=== PATIENT | male | born 1965 | race Two or more races ===

== ENCOUNTER → 2020-02-16 08:22 | Outpatient (BNVA) | payer MEDICARE, MEDICAID, SELFPAY | PROVIDERS: PCP Internal Medicine; Visit Provider Family Medicine Adult Medicine | DX: M54.16 Radiculopathy, lumbar region (principal); Z87.891 Personal history of nicotine dependence; Z98.1 Arthrodesis status | CPT/HCPCS: 99214 ==

== ENCOUNTER → 2020-04-12 08:09 | Outpatient (BNVA) | payer MEDICARE, MEDICAID, SELFPAY | PROVIDERS: PCP Internal Medicine; Referring Provider Internal Medicine; Visit Provider Family Medicine Adult Medicine | DX: M54.16 Radiculopathy, lumbar region (principal); Z98.1 Arthrodesis status | CPT/HCPCS: 99212 ==

== ENCOUNTER 2020-05-10 13:55 | Outpatient (REF) | payer MEDICARE, MEDICAID, SELFPAY | END 2020-05-10 13:56 | disposition home or self-care (01) | LOC: HO.LAB 13:55 | PROVIDERS: Visit Provider Internal Medicine | DX: Z20.828 Contact with and (suspected) exposure to other viral communicable diseases (principal) | CPT/HCPCS: 36415; C9803; U0003 ==

== ENCOUNTER → 2020-05-18 08:23 | Outpatient (BNVA) | payer MEDICARE, MEDICAID, SELFPAY | PROVIDERS: PCP Internal Medicine; Visit Provider Anesthesiology | DX: M96.1 Postlaminectomy syndrome, not elsewhere classified (principal); M79.18 Myalgia, other site | CPT/HCPCS: 20552; 99212; J3300 ==

== ENCOUNTER → 2020-06-07 10:49 | Outpatient (BNVA) | payer MEDICARE, MEDICAID, SELFPAY | PROVIDERS: PCP Internal Medicine; Visit Provider Family Medicine Adult Medicine | DX: M54.16 Radiculopathy, lumbar region (principal); Z98.1 Arthrodesis status; Z79.899 Other long term (current) drug therapy | CPT/HCPCS: 99212 ==

== ENCOUNTER 2020-07-05 08:15 | Outpatient (REF) | payer MEDICARE, MEDICAID, SELFPAY ==
[2020-07-05 10:11] LABS: Hematocrit 46.5 % (42-52); Hemoglobin 15.4 g/dl (14.0-18.0); Mean Corpuscular HGB Conc 33.1 g/dl (31.0-36.0); Mean Corpuscular Hemoglobin 28.4 pg (27.0-33.0); Mean Corpuscular Volume 85.6 fL (80-98); Mean Platelet Volume 11.2 fL (9.4-12.4); Platelet Count 223 X10*3/uL (160-400); Red Blood Count 5.43 X10*6/uL (4.60-5.80); White Blood Count 6.8 X10*3/uL (4.8-10.8)
[2020-07-05 10:47] LABS: Alanine Aminotransferase 39 U/L (0-40); Albumin Level 4.2 g/dL (3.5-5.0); Alkaline Phosphatase 67 U/L (39-117); Anion Gap 13 (12-20); Aspartate Amino Transferase 23 U/L (5-37); Bilirubin Direct 0.2 mg/dL (0.0-0.5); Bilirubin Total 0.7 mg/dL (0.0-1.0); Blood Urea Nitrogen 13 mg/dL (9-16); Carbon Dioxide 29 mmol/L (22-29); Chloride 102 mmol/L (96-108); Cholesterol 158 mg/dL; Estimated Glomerular Filt Rate > 60; Glucose Random 142 mg/dL (60-115); HDL Cholesterol 33 mg/dL; LDL Cholesterol Calculated 100 mg/dl; Potassium 4.7 mmol/L (3.3-5.1); Sodium 139 mmol/L (135-145); Total Protein 7.2 g/dL (6.5-8.0); Triglycerides 128 mg/dL
[2020-07-05 10:52] LABS: Thyroid Stimulating Hormone 2.45 uIU/mL (0.32-4.0)
[2020-07-05 11:39] LABS: Folate > 20.0 ng/mL (> or = 4.0); Vitamin B12 280 pg/mL (200-900)
[2020-07-09 10:36] LABS: Vitamin D 25-OH, D2 <4 ng/mL; Vitamin D 25-OH, D3 21 ng/mL; Vitamin D 25-OH, Total 21 ng/mL (30-100)
== END 2020-07-05 08:16 | disposition home or self-care (01) ==
LOC: HO.10HDL 08:15
PROVIDERS: Visit Provider Internal Medicine
DX: M79.18 Myalgia, other site (principal)
CPT/HCPCS: 36415; 80048; 80061; 80076; 82306; 82607; 82746; 84443; 85027

== ENCOUNTER 2020-07-12 07:03 | Emergency (ER) | payer MEDICARE, MEDICAID, SELFPAY ==
--- NOTE | ~2020-07-12 | XR_ITS ---
EXAMINATION: XR CHEST CLINICAL INFORMATION: Chest pain. COMPARISON: None TECHNIQUE: 2 views of the chest were obtained. FINDINGS: No significant abnormality is noted involving the heart, lungs, mediastinum, bony thorax or soft tissues. XR/XR chest 2V IMPRESSION: Unremarkable chest exam.
[2020-07-12 07:25] VITALS: BP 140/84; PULSE 70; RESP 16; TEMP 36.5; O2SAT 99; BMI 32.2
--- NOTE | 2020-07-12 07:51 | ECG_ITS ---
Test Reason : HIRA PAIN Blood Pressure : / mmHG Vent. Rate : 059 BPM Atrial Rate : 059 BPM P-R Int : 148 ms QRS Dur : 098 ms QT Int : 416 ms P-R-T Axes : 062 022 020 degrees QTc Int : 411 ms Sinus bradycardia Otherwise normal ECG No previous ECGs available Referred By: Vinny Marcus Electronically Signed By:Erasmo Warren
--- NOTE | 2020-07-12 07:55 | ED_ITS ---
HPI - General Adult General Chief complaint: General Medical Stated complaint: pain in back when breathing Time Seen by Provider: 07/12/20 07:37 Source: patient Mode of arrival: ambulatory Limitations: no limitations History of Present Illness HPI narrative: 55-year-old male who presents emergency department for evaluation pleuritic, posterior chest pain. Patient states that 2 days prior he started to develop chest pain in his upper back. He describes the pain as coming on gradually. The pain is a pressure/pins and needles like pain which is constant and is worse with breathing. The pain is 8/10 with breathing. He denied shortness of breath, dyspnea on exertion, cough, fever, chills. He states that he has arthritis and he always has body pain secondary to his arthritis. He has noted swelling of his lower extremities over the past 2 weeks. He denies any recent travel or recent surgeries.. This is his 1st episode of this type of pain. The patient does have chronic back pain and is in pain management. He takes Percocet 7.5 mg daily and ibuprofen. He states that the ibuprofen has given him some relief of the pain. He last took ibuprofen last night. He was concerned that the pain was persistent, therefore came to the emergency department for evaluation. Related Data Home Medications Medication Instructions Recorded Confirmed atorvastatin 40 mg tablet 40 mg PO DAILY 02/06/20 07/10/20 thiamine HCl (vitamin B1) 100 mg 100 mg PO DAILY 02/16/20 07/10/20 tablet Previous Rx's Medication Instructions Recorded oxycodone-acetaminophen 7.5 mg-325 1 tab PO Q6H PRN 30 Days #120 tab 06/07/20 mg tablet ibuprofen 800 mg tablet 800 mg PO Q12H 90 Days #180 tab 07/07/20 Allergies Allergy/AdvReac Type Severity Reaction Status Date / Time morphine [MORPHINE] Allergy Severe SHORTNESS Verified 07/04/20 12:38 OF BREATH, resp depression adhesive tape [ADHESIVE TAPE] Allergy Intermediate RASH Verified 07/04/20 12:38 metformin [METFORMIN] Allergy Intermediate RASH Verified 07/04/20 12:38 Review of Systems Review of Systems: Yes all other systems are reviewed and are negative PMFSH Past Medical History Medical History Cervical vertebral fusion Myofascial pain syndrome Postlaminectomy syndrome of lumbar region Radiculopathy, lumbar region Surgical History History of bariatric surgery History of lumbar fusion History of lumbar laminectomy History of neck surgery Family History Family History Mother Liver disease Father Diabetes Sister Leukemia Social History Social History Alcohol intake: never Smoking Status: Never smoker Smoked in Last 30 Days: No Use of substances other than those prescribed or required for medical reasons: No Advance Directives: No Advance Directives Information Provided: No Physical Exam Vital Signs: Vital Signs: Last Vital Signs Temp 97.7 F 07/12/20 07:25 Pulse 60 07/12/20 10:29 Resp 16 07/12/20 10:29 BP 118/67 07/12/20 10:29 Pulse Ox 98 07/12/20 10:29 Body Mass Index 32.2 Const: General: cooperative and healthy appearing Orientation/consciousness: oriented to person and oriented to place Limitations: no limitations HENMT: Head: Yes normal to inspection, Yes normocephalic and Yes atraumatic Ears: external ears normal General nose exam: Normal external nose present Face and sinus: Yes normal facial exam Mouth: Normal oral and palatal mucosa present Throat: Yes posterior oropharynx normal Eyes: Periorbital: periorbital findings normal Eyelids: Yes eyelids normal Conjunctivae: conjunctivae normal Sclerae: sclerae normal Corneas: corneas normal Pupils: Equal, round and reactive pupils present Direct Ophthalmoscopy: normal light reflex Neck: Neck: Yes full ROM, Yes no lymphadenopathy, Yes no meningeal signs, Yes trachea midline and Yes supple Chest: Other: Patient has tenderness with palpation of his lateral and posterior chest wall, no crepitus, no lesions or rashes noted Chest palpation & inspection: normal inspection of the chest Resp: Effort & Inspection: normal respiratory effort and able to speak in complete sentences Auscultation: clear to auscultation bilaterally Cardio: Rate: regular rate Rhythm: regular rhythm Heart sounds: S1 normal heart sound present, S2 normal heart sound present and no murmurs GI: Inspection: Yes normal to inspection Palpation (GI): Soft to palpation, nontender, no guarding, not rigid and No hepatosplenomegaly present : General: Yes no CVA tenderness Back/Spine/Pelvis: Back: no CVA tenderness Cervical Spine: normal cervical lordosis Thoracic/Lumbar Spine: thoracic and lumbar spine normal to insp ection Skin: Lesions: no lesions Rashes: no rashes Wounds: no wounds Neuro: General: oriented to person, oriented to place and no meningeal signs Cranial nerves: Yes CN's II-XII intact bilaterally and Yes Equal, round and reactive pupils present Cognition (Neuro): normal cognition Motor exam (neuro): 5/5 motor strength present throughout Extrem: General: Yes normal to inspection and Yes full ROM Psych: Appearance: well kempt Mental Status: mental status grossly normal Speech and movement: Normal speech and movement present Affect: normal affect Attitude: cooperative Thought process: Normal thought process prese nt Thought content: Normal thought content present Course Course Course Narrative: 55-year-old male who presents emergency department for evaluation of 2 days of pleuritic lateral and posterior chest pain with no other symptoms except for lower extremity swelling. Physical examination did reveal tenderness with palpation of the lateral and posterior chest wall, no significant lower extremity swelling or pain to palpation of the extremities. I did order a workup to include CBC, CMP, troponin, D-dimer, EKG, two view chest x-ray. Patient's pain will be treated with Toradol 30 mg IV. 1312: The patient's pain is significantly better after the IV Toradol. The patient's laboratory evaluation revealed a normal D-dimer. The patient's 1st troponin was detectable but not elevated at 4.7, his repeat 3 hour troponin was again detectable but not elevated at 4.8 suggested that he does not have any acute myocardial injury is the cause of his pain. The rest the patient's labor atory evaluation was unremarkable. Chest x-ray was unremarkable as well. The patient's presentation is consistent with acute pleurisy and I did discuss this with him. He was given verbal and printed instructions. He is advised to continue taking his ibuprofen 800 mg twice a day. He was also advised to take Tylenol 1000 mg every 6 hours as needed for pain. The patient will need to follow up with his doctor and return to emergency department if his symptoms get worse or if he develops any new symptoms that are concerning to him. Medical Decision Making Lab Data Result diagrams: 07/12/20 08:05 07/12/20 08:05 Labs: Lab Results 07/12/20 07/12/20 07/12/20 Range/Units 08:05 08:05 08:05 WBC 8.8 (4.8-10.8) X10*3/uL RBC 5.19 (4.60-5.80) X10*6/uL Hgb 14.5 (14.0-18.0) g/dl Hct 44.2 (42-52) % MCV 85.2 (80-98) fL MCH 27.9 (27.0-33.0) pg MCHC 32.8 (31.0-36.0) g/dl RDW 11.9 (11.0-16.0) % Plt Count 198 (160-400) X10*3/uL MPV 11.2 (9.4-12.4) fL Immature Gran % (Auto) 0.3 (0.0-0.4) % Neut % (Auto) 71.0 (45-73) % Lymph % (Auto) 20.1 (20-40) % [place] % (Auto) 6.1 (2-11) % Eos % (Auto) 1.8 (0-4) % Baso % (Auto) 0.7 (0-2) % Lymph # (Auto) 1.8 (1.2-4.9) X10*3/uL [place] # (Auto) 0.5 (0.1-1.2) X10*3/uL Eos # (Auto) 0.2 (0.0-0.4) X10*3/uL Baso # (Auto) 0.1 (0.0-0.2) X10*3/uL Abs Immat Gran (auto) 0.03 (0.00-0.03) X10*3/uL Absolute Neuts (auto) 6.2 (2.0-8.3) X10*3/uL Absolute Nucleated RBC 0.000 (0.0-0.012) X10*3/uL Nucleated RBC % (auto) 0.0 (0.0-0.2) /100WBC D-Dimer < 200 NG/ML Sodium 138 (135-145) mmol/L Potassium 4.0 (3.3-5.1) mmol/L Chloride 102 (96-108) mmol/L Carbon Dioxide 29 (22-29) mmol/L Anion Gap 11 L (12-20) BUN 11 (9-16) mg/dL Creatinine 0.74 (0.5-1.4) mg/dL Estim Creat Clear Calc 128.3 Estimated GFR > 60 Random Glucose 143 H (60-115) mg/dL Calcium 9.3 (8.4-10.2) mg/dL Total Bilirubin 0.4 (0.0-1.0) mg/dL AST 14 (5-37) U/L ALT 24 (0-40) U/L Alkaline Phosphatase 61 (39-117) U/L Troponin I High Sens (<3.5-35.0) ng/L Total Protein 6.9 (6.5-8.0) g/dL Albumin 4.0 (3.5-5.0) g/dL 07/12/20 07/12/20 Range/Units 08:05 11:17 WBC (4.8-10.8) X10*3/uL RBC (4.60-5.80) X10*6/uL Hgb (14.0-18.0) g/dl Hct (42-52) % MCV (80-98) fL MCH (27.0-33.0) pg MCHC (31.0-36.0) g/dl RDW (11.0-16.0) % Plt Count (160-400) X10*3/uL MPV (9.4-12.4) fL Immature Gran % (Auto) (0.0-0.4) % Neut % (Auto) (45-73) % Lymph % (Auto) (20-40) % [place] % (Auto) (2-11) % Eos % (Auto) (0-4) % Baso % (Auto) (0-2) % Lymph # (Auto) (1.2-4.9) X10*3/uL [place] # (Auto) (0.1-1.2) X10*3/uL Eos # (Auto) (0.0-0.4) X10*3/uL Baso # (Auto) (0.0-0.2) X10*3/uL Abs Immat Gran (auto) (0.00-0.03) X10*3/uL Absolute Neuts (auto) (2.0-8.3) X10*3/uL Absolute Nucleated RBC (0.0-0.012) X10*3/uL Nucleated RBC % (auto) (0.0-0.2) /100WBC D-Dimer NG/ML Sodium (135-145) mmol/L Potassium (3.3-5.1) mmol/L Chloride (96-108) mmol/L Carbon Dioxide (22-29) mmol/L Anion Gap (12-20) BUN (9-16) mg/dL Creatinine (0.5-1.4) mg/dL Estim Creat Clear Calc Estimated GFR Random Glucose (60-115) mg/dL Calcium (8.4-10.2) mg/dL Total Bilirubin (0.0-1.0) mg/dL AST (5-37) U/L ALT (0-40) U/L Alkaline Phosphatase (39-117) U/L Troponin I High Sens 4.7 4.8 (<3.5-35.0) ng/L Total Protein (6.5-8.0) g/dL Albumin (3.5-5.0) g/dL ECG Data Attestation: I personally reviewed and interpreted this ECG as follows: Interpretation: 0820: Sinus bradycardia with rate of 59, normal SD, QRS and QTC intervals, are R prime in lead 3, no ST segment elevation, no ST segment depression, besides the bradycardia, this is an otherwise normal EKG. Discharge Plan Discharge Prescriptions: No Action ibuprofen 800 mg tablet 800 mg PO Q12H 90 Days Qty: 180 RF: 1 thiamine HCl (vitamin B1) [Vitamin B-1] 100 mg tablet 100 mg PO DAILY RF: 0 atorvastatin 40 mg tablet 40 mg PO DAILY RF: 0 oxycodone-acetaminophen 7.5-325 mg tablet 1 tab PO Q6H PRN (Reason: pain) 30 Days Qty: 120 RF: 0
[2020-07-12] MEDS: Ketorolac Tromethamine 30 MG/ML VIAL IVPUSH (08:14)
[2020-07-12 08:17] VITALS: BP 144/89; PULSE 58; RESP 16; O2SAT 100
[2020-07-12 08:23] LABS: MANUAL DIFF FLAG NO
[2020-07-12 08:25] LABS: Basophils Absolute Auto 0.1 X10*3/uL (0.0-0.2); Basophils Percent Auto 0.7 % (0-2); Eosinophils Absolute Auto 0.2 X10*3/uL (0.0-0.4); Eosinophils Percent Auto 1.8 % (0-4); Hematocrit 44.2 % (42-52); Hemoglobin 14.5 g/dl (14.0-18.0); Imm Gran Abs Auto 0.03 X10*3/uL (0.00-0.03); Imm Gran Pct Auto 0.3 % (0.0-0.4); Lymphocytes Absolute Auto 1.8 X10*3/uL (1.2-4.9); Lymphocytes Percent Auto 20.1 % (20-40); Mean Corpuscular HGB Conc 32.8 g/dl (31.0-36.0); Mean Corpuscular Hemoglobin 27.9 pg (27.0-33.0); Mean Corpuscular Volume 85.2 fL (80-98); Mean Platelet Volume 11.2 fL (9.4-12.4); Monocytes Absolute Auto 0.5 X10*3/uL (0.1-1.2); Monocytes Percent Auto 6.1 % (2-11); Neutrophils Absolute Auto 6.2 X10*3/uL (2.0-8.3); Platelet Count 198 X10*3/uL (160-400); Red Blood Count 5.19 X10*6/uL (4.60-5.80); Red Cell Distribution Width 11.9 % (11.0-16.0); White Blood Count 8.8 X10*3/uL (4.8-10.8)
[2020-07-12 08:42] LABS: D Dimer < 200 NG/ML
[2020-07-12 08:56] LABS: Alanine Aminotransferase 24 U/L (0-40); Alkaline Phosphatase 61 U/L (39-117); Anion Gap 11 (12-20); Aspartate Amino Transferase 14 U/L (5-37); Bilirubin Total 0.4 mg/dL (0.0-1.0); Blood Urea Nitrogen 11 mg/dL (9-16); Calcium 9.3 mg/dL (8.4-10.2); Carbon Dioxide 29 mmol/L (22-29); Chloride 102 mmol/L (96-108); Creatinine Clr Calc Pharmacy 128.3; Estimated Glomerular Filt Rate > 60; Glucose Random 143 mg/dL (60-115); Sodium 138 mmol/L (135-145); Total Protein 6.9 g/dL (6.5-8.0)
[2020-07-12 09:00] LABS: Troponin-I High Sensitivity 4.7 ng/L (<3.5-35.0)
[2020-07-12 10:29] VITALS: BP 118/67; PULSE 60; RESP 16; O2SAT 98
[2020-07-12 11:58] LABS: Troponin-I High Sensitivity 4.8 ng/L (<3.5-35.0)
== END 2020-07-12 13:35 | disposition home or self-care (01) ==
PROVIDERS: Emergency Provider Emergency Medicine Emergency Medical Services; PCP Internal Medicine
DX: R07.89 Other chest pain (principal); M54.5 Low back pain; M79.10 Myalgia, unspecified site; Z79.899 Other long term (current) drug therapy
CPT/HCPCS: 36415; 71046; 80053; 84484; 85025; 85379; 93005; 96365; 99284; J1885

== ENCOUNTER → 2020-07-13 09:27 | Outpatient (BNVA) | payer MEDICARE, MEDICAID, SELFPAY | PROVIDERS: PCP Internal Medicine; Visit Provider Nurse Practitioner Family | DX: M79.18 Myalgia, other site (principal); M96.1 Postlaminectomy syndrome, not elsewhere classified; Z79.899 Other long term (current) drug therapy | CPT/HCPCS: 99212 ==

== ENCOUNTER 2020-08-02 09:32 | Outpatient (REF) | payer MEDICARE, MEDICAID, SELFPAY | END 2020-08-02 09:33 | disposition home or self-care (01) | LOC: HO.LAB 09:32 | PROVIDERS: Visit Provider Internal Medicine | DX: B35.1 Tinea unguium (principal) | CPT/HCPCS: 87101; 87107 ==

== ENCOUNTER → 2020-08-17 08:00 | Outpatient (BNVA) | payer MEDICARE, MEDICAID, SELFPAY | PROVIDERS: PCP Internal Medicine; Visit Provider Nurse Practitioner Family | DX: M79.18 Myalgia, other site (principal); M96.1 Postlaminectomy syndrome, not elsewhere classified | CPT/HCPCS: 99212 ==

== ENCOUNTER → 2020-09-21 08:01 | Outpatient (BNVA) | payer MEDICARE, MEDICAID, SELFPAY | PROVIDERS: PCP Internal Medicine; Visit Provider Nurse Practitioner Family | DX: M79.18 Myalgia, other site (principal); M96.1 Postlaminectomy syndrome, not elsewhere classified | CPT/HCPCS: 99212 ==

== ENCOUNTER → 2020-10-19 08:00 | Outpatient (BNVA) | payer MEDICARE, MEDICAID, SELFPAY | PROVIDERS: PCP Internal Medicine; Visit Provider Nurse Practitioner Family | DX: M79.18 Myalgia, other site (principal); M96.1 Postlaminectomy syndrome, not elsewhere classified | CPT/HCPCS: 99212 ==

== ENCOUNTER → 2020-11-17 08:00 | Outpatient (BNVA) | payer MEDICARE, MEDICAID, SELFPAY | PROVIDERS: PCP Internal Medicine; Visit Provider Family Medicine Adult Medicine | DX: M54.16 Radiculopathy, lumbar region (principal); Z98.1 Arthrodesis status | CPT/HCPCS: 99212 ==

== ENCOUNTER → 2020-12-15 08:09 | Outpatient (BNVA) | payer MEDICARE, MEDICAID, SELFPAY | PROVIDERS: PCP Internal Medicine; Visit Provider Family Medicine Adult Medicine | DX: M54.16 Radiculopathy, lumbar region (principal); Z98.1 Arthrodesis status; M47.24 Other spondylosis with radiculopathy, thoracic region | CPT/HCPCS: 99212 ==

== ENCOUNTER 2020-12-26 18:40 | Outpatient (REF) | payer MEDICARE, MEDICAID, SELFPAY | END 2020-12-26 18:41 | disposition home or self-care (01) | LOC: HO.MRI 18:40 | PROVIDERS: PCP Internal Medicine; Visit Provider Anesthesiology | DX: Z13.89 Encounter for screening for other disorder (principal) ==

== ENCOUNTER 2021-01-04 14:51 | Emergency (ER) | payer MEDICARE, MEDICAID, SELFPAY ==
[2021-01-04 14:55] VITALS: BP 144/88; PULSE 93; RESP 16; TEMP 36.1; O2SAT 98; BMI 32.6
[2021-01-04 15:17] LABS: Glucose Urine UA >=1000 MG/DL (NEG); Leukocyte Esterase Urine 1+ (NEG); Nitrite Urine POS (NEG); Specific Gravity - Urine 1.015 (1.005-1.025); UACC Culture Trigger YES; Urine Blood 3+ (NEG); Urine Ketones 5 MG/DL (NEG); Urine Protein 1+ MG/DL (NEG-TRACE)
[2021-01-04 15:18] LABS: Appearance Urine HAZY; Color Urine YELLOW
[2021-01-04 15:25] LABS: Bacteria Urine 3+ /LPF; RBC Urine 30-49 /HPF (0); Squamous Epithelial Cell Urine 1+ /LPF; UACC CULT YES
--- NOTE | 2021-01-04 16:05 | ED_ITS ---
HPI - Male Genitourinary General Chief complaint: Urogenital-Male Stated complaint: bladder pain Time Seen by Provider: 01/04/21 15:52 Source: patient Mode of arrival: ambulatory History of Present Illness HPI Narrative: 55-year-old male with a past medical history anxiety, eczema, radiculopathy, s/p bariatric surgery and bladder surgery in 2014, presenting to the ED complaining of urinary frequency, dysuria, hematuria, urine odor, and l ower abdominal discomfort x 5 days. Also reports chills. Denies fever, nausea/vomiting, flank pain, testicular pain/swelling MD Complaint: dysuria Related Data Previous Rx's Medication Instructions Recorded ibuprofen 800 mg tablet 800 mg PO Q12H 90 Days #180 tab 07/07/20 triamcinolone acetonide 0.025 % 1 appl TOPICAL BID #15 g 09/08/20 topical cream cholecalciferol (vitamin D3) 1,250 1,250 mcg PO QWEEK #14 cap 11/15/20 mcg (50,000 unit) capsule thiamine HCl (vitamin B1) 100 mg 100 mg PO DAILY #90 tab 11/15/20 tablet (Vitamin B-1) oxycodone-acetaminophen 7.5 mg-325 1 tab PO Q6H PRN 30 Days #120 tab 12/15/20 mg tablet lorazepam 1 mg tablet 1 mg PO DAILY PRN 1 Days #2 tab 12/27/20 cefpodoxime 200 mg tablet 200 mg PO BID 7 Days #14 tab 01/04/21 phenazopyridine 200 mg tablet 200 mg PO TID PRN #6 tab 01/04/21 (Pyridium) Allergies Allergy/AdvReac Type Severity Reaction Status Date / Time morphine [MORPHINE] Allergy Severe SHORTNESS Verified 12/15/20 08:53 OF BREATH, resp depression adhesive tape [ADHESIVE TAPE] Allergy Intermediate RASH Verified 12/15/20 08:53 metformin [METFORMIN] Allergy Intermediate RASH Verified 12/15/20 08:53 Review of Systems Review of Systems: Constitutional: No Fever, No Chills, No Fatigue, No Malaise ENT/Mouth: No Ear Pain, No Nasal Congestion, No sore throat Eyes: No Eye Pain, No Swelling Cardiovascular: No Chest Pain, No SOB Respiratory: No Cough, No Sputum Gastrointestinal: No Nausea, No Vomiting, No Diarrhea, No Abdominal pain, No Hematochezia, No Melena Genitourinary: No irregular bleeding, + Dysuria, + Urinary Frequency, No Hematuria, No Urinary Incontinence, + Urgency, No Flank Pain, + Urinary Flow Changes, No Hesitancy Musculoskeletal: No joint pain, No Myalgias Skin: No Skin Lesions, No rash Neuro: No Weakness, No Numbness, No Paresthesias Yes all other systems are reviewed and are negative [facility] Past Medical History Attestation statement: The following information was validated with the patient. Medical History (Updated 01/04/21 @ 18:05 by MARÍA ELENA Amaya) Anxiety Cervical vertebral fusion Dyshidrotic eczema Myofascial pain syndrome Onychomycosis Postlaminectomy syndrome of lumbar region Radiculopathy, lumbar region Thoracic radiculopathy due to degenerative joint disease of spine Surgical History History of bariatric surgery History of lumbar fusion History of lumbar laminectomy History of neck surgery Family History Family History (Updated 11/15/20 @ 08:42 by Silviano Abrams) Mother Liver disease Father Diabetes Sister Leukemia Social History Social History (Updated 11/15/20 @ 08:42 by Silviano Abrams) Housing: Apartment Alcohol intake: never Patient Tobacco Use Status: Never used Tobacco e-Cigarette/Vaping Use: Never Used Second Hand Smoke Exposure: No Use of substances other than those prescribed or required for medical reasons: No Advance Directives: No Advance Directives Information Provided: Yes service: No Current occupational status: disabled Physical Exam Vital Signs: Vital Signs: Last Vital Signs Temp 98.7 F 01/04/21 16:09 Pulse 95 01/04/21 16:09 Resp 16 01/04/21 16:09 BP 139/83 01/04/21 16:09 Pulse Ox 100 01/04/21 16:09 Body Mass Index 32.6 Const: General: cooperative and healthy appearing Orientation/consciousness: patient oriented x3 Limitations: no limitations HENMT: Head: Yes normal to inspection Ears: hearing grossly normal bilaterally General nose exam: Normal external nose present Face and sinus: Yes normal facial exam Eyes: General: appearance normal, both eyes and all related structures EOM: EOMs intact bilaterally Neck: Neck: Yes normal visual inspection Resp: Effort & Inspection: normal respiratory effort and no respiratory distress Cardio: Rate: regular rate Heart sounds: S1 normal heart sound present and S2 normal heart sound present GI: Inspection: Yes normal to inspection Palpation (GI): Soft to palpation, nontender, no guarding and not rigid : General: Yes no CVA tenderness Back/Spine/Pelvis: Back: no CVA tenderness Skin: Rashes: no rashes Wounds: no wounds Neuro: General: patient oriented x3 Gait exam (Neuro): Normal gait present Extrem: General: Yes normal to inspection Course Course Course Narrative: -163-- UA infected > Will give dose of IV Ceftriaxone in the ED based on prior urine cultures -1634--noted leukocytosis of 15.1. Low concern for severe sepsis at this time, labs otherwise unremarkable -1800--results discussed with patient including worrisome signs and symptoms and strict return precautions, he verbalized understanding feel safe for discharge home to follow-up with his PCP/urology MDM - Male Genitourinary MDM Narrative Medical decision making narrative: 55-year-old male with a past medical history anxiety, eczema, radiculopathy, s/p bariatric surgery and bladder surgery in 2014, presenting to the ED complaining of urinary frequency, dysuria, urine odor, and lower abdominal discomfort x 5 days. On exam VSS, NAD/nontoxic, abdomen soft/nontender, no CVAT. Concern for UTI. Lower concern for pyelo/renal stone or sepsis plan: Labs, UA Medical Records Attestation: I reviewed the patient's medical records. Lab Data Attestation: I reviewed the patient's lab results. Result diagrams: 01/04/21 16:15 01/04/21 16:15 Labs: Lab Results 01/04/21 01/04/21 01/04/21 Range/Units 15:02 16:15 16:15 WBC 15.1 H (4.8-10.8) X10*3/uL RBC 5.00 (4.60-5.80) X10*6/uL Hgb 14.1 (14.0-18.0) g/dl Hct 42.3 (42-52) % MCV 84.6 (80-98) fL MCH 28.2 (27.0-33.0) pg MCHC 33.3 (31.0-36.0) g/dl RDW 11.9 (11.0-16.0) % Plt Count 198 (160-400) X10*3/uL MPV 11.1 (9.4-12.4) fL Immature Gran % (Auto) 0.3 (0.0-0.4) % Neut % (Auto) 87.2 H (45-73) % Lymph % (Auto) 7.2 L (20-40) % [place] % (Auto) 4.5 (2-11) % Eos % (Auto) 0.5 (0-4) % Baso % (Auto) 0.3 (0-2) % Lymph # (Auto) 1.1 L (1.2-4.9) X10*3/uL [place] # (Auto) 0.7 (0.1-1.2) X10*3/uL Eos # (Auto) 0.1 (0.0-0.4) X10*3/uL Baso # (Auto) 0.0 (0.0-0.2) X10*3/uL Abs Immat Gran (auto) 0.05 H (0.00-0.03) X10*3/uL Absolute Neuts (auto) 13.1 H (2.0-8.3) X10*3/uL Absolute Nucleated RBC 0.000 (0.0-0.012) X10*3/uL Nucleated RBC % (auto) 0.0 (0.0-0.2) /100WBC Sodium 134 L (135-145) mmol/L Potassium 3.9 (3.3-5.1) mmol/L Chloride 101 (96-108) mmol/L Carbon Dioxide 26 (22-29) mmol/L Anion Gap 11 L (12-20) BUN 10 (9-16) mg/dL Creatinine 0.83 (0.5-1.4) mg/dL Estim Creat Clear Calc 115.1 Estimated GFR > 60 Random Glucose 282 H D (60-115) mg/dL Calcium 9.1 (8.4-10.2) mg/dL Total Bilirubin 0.7 (0.0-1.0) mg/dL Direct Bilirubin 0.3 (0.0-0.5) mg/dL AST 11 (5-37) U/L ALT 15 (0-40) U/L Alkaline Phosphatase 68 (39-117) U/L Total Protein 7.0 (6.5-8.0) g/dL Albumin 4.0 (3.5-5.0) g/dL Urine Color YELLOW Urine Appearance HAZY Urine pH 6.0 (5.0-8.0) Ur Specific [place] 1.015 (1.005-1.025) Urine Protein 1+ H (NEG-TRACE) MG/DL Urine Glucose (UA) >=1000 H (NEG) MG/DL Urine Ketones 5 (NEG) MG/DL Urine Blood 3+ H (NEG) Urine Nitrite POS H (NEG) Ur Leukocyte Esterase 1+ H (NEG) Urine RBC 30-49 H (0) /HPF Urine WBC 15-29 H (0-4) /HPF Ur Squamous Epith Cells 1+ /LPF Urine Bacteria 3+ /LPF Discharge Plan Discharge Clinical Impression: Acute UTI Patient Disposition: Home, Self-Care Instructions: Urinary Tract Infection in Men (ED) Additional Instructions: You have a urinary tract infection, cefpodoxime is an antibiotic, please take as prescribed Pyridium will help with urinary discomfort Make sure you are staying hydrated at home If your symptoms persist or worsen, you develop fever, abdominal pain, your unable to eat or drink, back pain, or nausea/vomiting please return to the ED Prescriptions: New cefpodoxime 200 mg tablet 200 mg PO BID 7 Days Qty: 14 RF: 0 phenazopyridine [Pyridium] 200 mg tablet 200 mg PO TID PRN (Reason: pain) Qty: 6 RF: 0 No Action ibuprofen 800 mg tablet 800 mg PO Q12H 90 Days Qty: 180 RF: 1 triamcinolone acetonide 0.025 % cream 1 appl topical BID Qty: 15 RF: 0 cholecalciferol (vitamin D3) 1,250 mcg (50,000 unit) capsule 1,250 mcg PO QWEEK Qty: 14 RF: 1 thiamine HCl (vitamin B1) [Vitamin B-1] 100 mg tablet 100 mg PO DAILY Qty: 90 RF: 1 oxycodone-acetaminophen 7.5-325 mg tablet 1 tab PO Q6H PRN (Reason: pain) 30 Days Qty: 120 RF: 0 lorazepam 1 mg tablet 1 mg PO DAILY PRN (Reason: anxiety) 1 Days Qty: 2 RF: 0 Referrals: Dominic Evans MD [Primary Care Provider] - 2 days Jr Caldwell MD [Physician] - 1 week
[2021-01-04 16:09] VITALS: BP 139/83; PULSE 95; RESP 16; TEMP 37.1; O2SAT 100
[2021-01-04 16:19] LABS: MANUAL DIFF FLAG NO
[2021-01-04] MEDS: cefTRIAXone sodium 1 GM in 0.9 % Sodium Chloride 50 ML IV (16:19)
[2021-01-04 16:26] LABS: Basophils Percent Auto 0.3 % (0-2); Eosinophils Absolute Auto 0.1 X10*3/uL (0.0-0.4); Eosinophils Percent Auto 0.5 % (0-4); Hematocrit 42.3 % (42-52); Hemoglobin 14.1 g/dl (14.0-18.0); Imm Gran Abs Auto 0.05 X10*3/uL (0.00-0.03); Imm Gran Pct Auto 0.3 % (0.0-0.4); Lymphocytes Absolute Auto 1.1 X10*3/uL (1.2-4.9); Lymphocytes Percent Auto 7.2 % (20-40); Mean Corpuscular HGB Conc 33.3 g/dl (31.0-36.0); Mean Corpuscular Hemoglobin 28.2 pg (27.0-33.0); Mean Corpuscular Volume 84.6 fL (80-98); Mean Platelet Volume 11.1 fL (9.4-12.4); Monocytes Absolute Auto 0.7 X10*3/uL (0.1-1.2); Monocytes Percent Auto 4.5 % (2-11); Neutrophils Absolute Auto 13.1 X10*3/uL (2.0-8.3); Neutrophils Percent Auto 87.2 % (45-73); Platelet Count 198 X10*3/uL (160-400); Red Cell Distribution Width 11.9 % (11.0-16.0); White Blood Count 15.1 X10*3/uL (4.8-10.8)
[2021-01-04 16:46] LABS: Alanine Aminotransferase 15 U/L (0-40); Alkaline Phosphatase 68 U/L (39-117); Anion Gap 11 (12-20); Aspartate Amino Transferase 11 U/L (5-37); Bilirubin Direct 0.3 mg/dL (0.0-0.5); Bilirubin Total 0.7 mg/dL (0.0-1.0); Blood Urea Nitrogen 10 mg/dL (9-16); Calcium 9.1 mg/dL (8.4-10.2); Carbon Dioxide 26 mmol/L (22-29); Chloride 101 mmol/L (96-108); Creatinine Clr Calc Pharmacy 115.1; Estimated Glomerular Filt Rate > 60; Glucose Random 282 mg/dL (60-115); Potassium 3.9 mmol/L (3.3-5.1); Sodium 134 mmol/L (135-145)
== END 2021-01-04 18:18 | disposition home or self-care (01) ==
PROVIDERS: Physician Assistant; Emergency Provider Emergency Medicine Emergency Medical Services; PCP Internal Medicine
DX: N39.0 Urinary tract infection, site not specified (principal)
CPT/HCPCS: 36415; 80048; 80076; 81001; 85025; 87086; 87088; 87186; 96365; 99284; J0696

== ENCOUNTER → 2021-01-12 08:04 | Outpatient (BNVA) | payer MEDICARE, MEDICAID, SELFPAY | PROVIDERS: PCP Internal Medicine; Visit Provider Family Medicine Adult Medicine | DX: Z51.81 Encounter for therapeutic drug level monitoring (principal); Z98.1 Arthrodesis status; M54.16 Radiculopathy, lumbar region | CPT/HCPCS: 99212 ==

== ENCOUNTER 2021-01-16 07:31 | Outpatient (REF) | payer MEDICARE, MEDICAID, SELFPAY ==
--- NOTE | ~2021-01-16 | MR_ITS ---
EXAMINATION: MR THORACIC SPINE WITHOUT CONTRAST CLINICAL INFORMATION: Spondylosis with radiculopathy. COMPARISON: Chest radiograph from 02/19/2017. TECHNIQUE: MRI of the thoracic spine was obtained using routine sequences without contrast. FINDINGS: Normal anatomic alignment. Lipid rich hemangioma within the T7 vertebral body. Mild to moderate degenerative disc disease from T1 to T12 with partial loss of disc height and desiccation. Associated Modic type II discogenic endplate change at T11-T12. No suspicious marrow edema. The vertebral body heights are largely maintained. No demonstrated spinal cord signal abnormalities. No significant abnormalities of the paraspinal musculature. There is a 0.9 cm T2 hyperintense nodule in the posterior right thyroid lobe (no follow-up imaging recommended). Limited evaluation of the intrathoracic structures without significant abnormalities. The descending thoracic aorta is of normal contour and caliber. AXIAL SPINAL LEVELS: Moderate disc-osteophyte complex measuring at C6-C7. Moderate posterior disc herniations at T1-T2, T5-T6, T6-T7, T7-T8, T8-T9, and T11-T12. Mild posterior disc herniations at all additional thoracic levels. There is mild flattening of the ventral cord at the level of T6-T7 without overt spinal canal stenosis. There is moderate multilevel facet joint arthropathy, most notably in the lower thoracic spine. There are moderate to severe neural foraminal stenoses at T1-T2 and from T7-T12 (worst at T9-T10 and T10-T11). 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 Most notably, there are moderate to severe neural foraminal stenoses at T1-T2 and from T7-T12 (worst at T9-T10 and T10-T11. Multilevel posterior disc herniations throughout the thoracic spine. Mild flattening the ventral cord at the level of T6-T7 without overt spinal canal stenosis.
== END 2021-01-16 07:32 | disposition home or self-care (01) ==
LOC: HO.MRI 07:31
PROVIDERS: PCP Internal Medicine; Visit Provider Anesthesiology
DX: M47.24 Other spondylosis with radiculopathy, thoracic region (principal)
CPT/HCPCS: 72146

== ENCOUNTER → 2021-01-23 11:39 | Outpatient (BNVA) | payer MEDICARE, MEDICAID, SELFPAY | PROVIDERS: PCP Internal Medicine; Visit Provider Anesthesiology ==

== ENCOUNTER → 2021-02-07 08:03 | Outpatient (BNVA) | payer MEDICARE, MEDICAID, SELFPAY | PROVIDERS: PCP Internal Medicine; Visit Provider Family Medicine Adult Medicine | DX: Z51.81 Encounter for therapeutic drug level monitoring (principal); F41.9 Anxiety disorder, unspecified; F40.240 Claustrophobia; Z98.1 Arthrodesis status; M54.16 Radiculopathy, lumbar region | CPT/HCPCS: 99212 ==

== ENCOUNTER → 2021-02-16 09:25 | Outpatient (BNVA) | payer MEDICARE, MEDICAID, SELFPAY | PROVIDERS: PCP Internal Medicine; Visit Provider Anesthesiology | DX: M47.24 Other spondylosis with radiculopathy, thoracic region (principal) | CPT/HCPCS: 99212 ==

== ENCOUNTER 2021-03-05 13:54 | Emergency (ER) | payer MEDICARE, MEDICAID, SELFPAY ==
[2021-03-05 13:57] VITALS: BP 137/83; PULSE 82; RESP 16; TEMP 36.8; O2SAT 98; BMI 33.1
--- NOTE | 2021-03-05 16:43 | ED.EAR ---
HPI - Ear Problem General Chief complaint: Ear Problems Stated complaint: loss of hearing in r ear and neck pain Time Seen by Provider: 03/05/21 16:25 Source: patient Mode of arrival: ambulatory History of Present Illness HPI Narrative: 55-year-old male with a past medical history of anxiety, cervical vertebral fusion, lumbar fusion, radiculopathy, presenting to the ED complaining decreased hearing to left ear x2 days with associated tinnitus. Reports tried cleaning here then developed symptoms. Also reports mild pain radiating down left neck. Denies trauma/fall, drainage from ear, fever/chills, headache, lightheadedness/dizziness, vision changes, sore throat MD Complaint: ear pain and decreased hearing Related Data Previous Rx's Medication Instructions Recorded triamcinolone acetonide 0.025 % 1 appl TOPICAL BID #15 g 09/08/20 topical cream cholecalciferol (vitamin D3) 1,250 1,250 mcg PO QWEEK #14 cap 11/15/20 mcg (50,000 unit) capsule thiamine HCl (vitamin B1) 100 mg 100 mg PO DAILY #90 tab 11/15/20 tablet (Vitamin B-1) cefpodoxime 200 mg tablet 200 mg PO BID 7 Days #14 tab 01/04/21 phenazopyridine 200 mg tablet 200 mg PO TID PRN #6 tab 01/04/21 (Pyridium) oxycodone-acetaminophen 7.5 mg-325 1 tab PO Q6H PRN 30 Days #120 tab 02/07/21 mg tablet ibuprofen 800 mg tablet 800 mg PO Q12H 90 Days #180 tab 02/24/21 Allergies Allergy/AdvReac Type Severity Reaction Status Date / Time morphine [MORPHINE] Allergy Severe SHORTNESS Verified 02/16/21 09:59 OF BREATH, resp depression adhesive tape [ADHESIVE TAPE] Allergy Intermediate RASH Verified 02/16/21 09:59 metformin [METFORMIN] Allergy Intermediate RASH Verified 02/16/21 09:59 Review of Systems Review of Systems: Constitutional: No Fever, No Chills, No Fatigue, No Malaise ENT/Mouth: + Hearing loss, No Ear Pain, No Nasal Congestion, No Sinus Pain, No Hoarseness, No sore throat, No Rhinorrhea, No Swallowing Difficulty Eyes: No Eye Pain, No Swelling, No Vision Changes Cardiovascular: No Chest Pain, No SOB Respiratory: No Cough, No Dyspnea Gastrointestinal: No Nausea, No Vomiting, No Diarrhea, No Abdominal pain Genitourinary: No Dysuria, No Urinary Frequency, No Hematuria Musculoskeletal: No joint pain, No Myalgias, No Joint Swelling Skin: No Skin Lesions, No rash Neuro: No Weakness, No Numbness, No Loss of Consciousness, No Dizziness, No Headache Yes all other systems are reviewed and are negative COUNTS INCLUDE 234 BEDS AT THE [facility] Past Medical History Attestation statement: The following information was validated with the patient. Medical History (Updated 03/05/21 @ 18:43 by MARÍA ELENA Amaya) Anxiety Cervical vertebral fusion Dyshidrotic eczema Myofascial pain syndrome Onychomycosis Postlaminectomy syndrome of lumbar region Radiculopathy, lumbar region Thoracic radiculopathy due to degenerative joint disease of spine Surgical History History of bariatric surgery History of lumbar fusion History of lumbar laminectomy History of neck surgery Family History Family History (Updated 11/15/20 @ 08:42 by ALYSSA Rocha) Mother Liver disease Father Diabetes Sister Leukemia Social History Social History (Updated 11/15/20 @ 08:42 by ALYSSA Rocha) Housing: Apartment Alcohol intake: never Patient Tobacco Use Status: Never used Tobacco e-Cigarette/Vaping Use: Never Used Second Hand Smoke Exposure: No Advance Directives: No Advance Directives Information Provided: No service: No Current occupational status: disabled Physical Exam Vital Signs: Vital Signs: Last Vital Signs Temp 98.2 F 03/05/21 13:57 Pulse 82 03/05/21 13:57 Resp 16 03/05/21 13:57 BP 137/83 03/05/21 13:57 Pulse Ox 98 03/05/21 13:57 Body Mass Index 33.1 Const: General: cooperative and healthy appearing Orientation/consciousness: patient oriented x3 Limitations: no limitations HENMT: Head: Yes normal to inspection and Yes atraumatic Ears: mastoids normal, no periauricular adenopathy, no external ear abnormalities and unable to visualize TM bilaterally (Secondary to cerumen impaction) General nose exam: Normal external nose present Face and sinus: Yes normal facial exam Mouth: Normal oral and palatal mucosa present and lip normal Throat: Yes posterior oropharynx normal, Yes tonsils normal, Yes uvula midline, No peritonsillar mass and No uvular edema Eyes: General: appearance normal, both eyes and all related structures EOM: EOMs intact bilaterally Neck: Neck: Yes normal visual inspection, Yes no lymphadenopathy, Yes no meningeal signs, Yes trachea midline and Yes supple Resp: Effort & Inspection: normal respiratory effort and no respiratory distress Cardio: Rate: regular rate GI: Inspection: Yes normal to inspection Skin: Rashes: no rashes Wounds: no wounds Neuro: General: patient oriented x3, gait normal, tone normal, moves all extremities, no meningeal signs, no focal motor deficits and CN's II-XI intact bilaterally Cranial nerves: Yes CN's II-XII intact bilaterally Gait exam (Neuro): Normal gait present Extrem: General: Yes normal to inspection Course Course Course Narrative: -tried irrigation with peroxide/saline without success -soaked ear with Colace >30mins, then used pressure irrigation with saline/peroxide with mild success, partially cleared cerumen. Patient reports mild symptomatic improvement. Still unable to visualize TM. Discussed with patient he has follow-up with ENT, he verbalized understanding MDM - Ear MDM Narrative Medical decision making narrative: 55-year-old male with a past medical history of anxiety, cervical vertebral fusion, lumbar fusion, radiculopathy, presenting to the ED complaining decreased hearing to left ear x2 days with associated tinnitus. On exam vital signs stable, NAD/nontoxic, bilateral cerumen infraction, no focal neuro deficits. Likely cerumen causing sx. Low concern for infection causing symptoms. Low concern for central/vascular causes of tinnitus. Patient not on ototoxic drugs Plan: Cerumen disimpaction with irrigation/Colace Medical Records Attestation: I reviewed the patient's medical records. Lab Data Attestation: I reviewed the patient's lab results. Discharge Plan Discharge Clinical Impression: Cerumen impaction Qualifiers: Laterality: left Qualified Code(s): H61.22 - Impacted cerumen, left ear Patient Disposition: Home, Self-Care Additional Instructions: use 50/ 50 saline and peroxide soaks in your ear to help soften the earwax You need to follow-up with an ear nose throat doctor, call tomorrow to make an appointment If her symptoms persist or worsen, he developed drainage from area, fever, chills, lightheadedness/dizziness please return to ED Prescriptions: No Action triamcinolone acetonide 0.025 % cream 1 appl topical BID Qty: 15 RF: 0 ibuprofen 800 mg tablet 800 mg PO Q12H 90 Days Qty: 180 RF: 1 cefpodoxime 200 mg tablet 200 mg PO BID 7 Days Qty: 14 RF: 0 phenazopyridine [Pyridium] 200 mg tablet 200 mg PO TID PRN (Reason: pain) Qty: 6 RF: 0 cholecalciferol (vitamin D3) 1,250 mcg (50,000 unit) capsule 1,250 mcg PO QWEEK Qty: 14 RF: 1 thiamine HCl (vitamin B1) [Vitamin B-1] 100 mg tablet 100 mg PO DAILY Qty: 90 RF: 1 oxycodone-acetaminophen 7.5-325 mg tablet 1 tab PO Q6H PRN (Reason: pain) 30 Days Qty: 120 RF: 0 Referrals: Gabe Gupta [Physician] - 2 days
[2021-03-05] MEDS: Docusate Sodium 100 MG/10 ML LIQUID PO (17:34)
== END 2021-03-05 19:42 | disposition home or self-care (01) ==
PROVIDERS: Emergency Provider Internal Medicine; PCP Internal Medicine
DX: H92.02 Otalgia, left ear (principal); H61.22 Impacted cerumen, left ear
CPT/HCPCS: 69209; 99283

== ENCOUNTER → 2021-03-09 08:00 | Outpatient (BNVA) | payer MEDICARE, MEDICAID, SELFPAY | PROVIDERS: PCP Internal Medicine; Visit Provider Family Medicine Adult Medicine | DX: Z51.81 Encounter for therapeutic drug level monitoring (principal); M96.0 Pseudarthrosis after fusion or arthrodesis; M47.24 Other spondylosis with radiculopathy, thoracic region; Z98.1 Arthrodesis status | CPT/HCPCS: 99212 ==

== ENCOUNTER → 2021-04-13 08:09 | Outpatient (BNVA) | payer MEDICARE, MEDICAID, SELFPAY | PROVIDERS: PCP Internal Medicine; Visit Provider Family Medicine Adult Medicine | DX: Z51.81 Encounter for therapeutic drug level monitoring (principal); M96.1 Postlaminectomy syndrome, not elsewhere classified; M96.0 Pseudarthrosis after fusion or arthrodesis; M47.24 Other spondylosis with radiculopathy, thoracic region | CPT/HCPCS: 99212 ==

== ENCOUNTER 2021-05-01 06:59 | Emergency (ER) | payer MEDICARE, MEDICAID, SELFPAY ==
[2021-05-01 07:19] VITALS: BP 156/89; PULSE 84; RESP 20; TEMP 36.2; O2SAT 98; BMI 33.1
[2021-05-01 08:03] LABS: COVID-19 Test Negative (Negative)
--- NOTE | 2021-05-01 08:18 | ED_ITS ---
HPI - URI/Sore Throat General Chief Complaint: Upper Respiratory Symptoms Stated Complaint: COVID Symptoms/Vaccinated Time Seen by Provider: 05/01/21 08:17 Source: patient Mode of arrival: ambulatory Limitations: no limitations History of Present Illness MD elicited complaint: cough, rhinorrhea and other (body aches) Pertinent past history: other (vaccinated x 2 pfizer) Onset (ago): day(s) (yesterday ) Consistency: constant Severity: mild Description of mucous: clear Able to tolerate fluids by mouth: Yes Exacerbating factors: nothing Relieving factors: nothing Context: sick contacts (daughter has COVID) Associated symptoms: chills, myalgias, headache and rhinorrhea Treatments prior to arrival: none Related Data Previous Rx's Medication Instructions Recorded triamcinolone acetonide 0.025 % 1 appl TOPICAL BID #15 g 09/08/20 topical cream cholecalciferol (vitamin D3) 1,250 1,250 mcg PO QWEEK #14 cap 11/15/20 mcg (50,000 unit) capsule thiamine HCl (vitamin B1) 100 mg 100 mg PO DAILY #90 tab 11/15/20 tablet (Vitamin B-1) cefpodoxime 200 mg tablet 200 mg PO BID 7 Days #14 tab 01/04/21 phenazopyridine 200 mg tablet 200 mg PO TID PRN #6 tab 01/04/21 (Pyridium) ibuprofen 800 mg tablet 800 mg PO Q12H 90 Days #180 tab 02/24/21 oxycodone-acetaminophen 7.5 mg-325 1 tab PO Q6H PRN 30 Days #120 tab 04/13/21 mg tablet Allergies Allergy/AdvReac Type Severity Reaction Status Date / Time morphine [MORPHINE] Allergy Severe SHORTNESS Verified 04/13/21 08:27 OF BREATH, resp depression adhesive tape [ADHESIVE TAPE] Allergy Intermediate RASH Verified 04/13/21 08:27 metformin [METFORMIN] Allergy Intermediate RASH Verified 04/13/21 08:27 Review of Systems Review of Systems: Constitutional : no Fever, no Chills, positive fatigue, positive Malaise ENT/Mouth : no sore throat, positive runny nose Eyes: No Discharge Cardiovascular : No Chest Pain, No SOB Respiratory : No Cough, No Sputum Gastrointestinal : No Nausea, No Vomiting, No Diarrhea Genitourinary : No Dysuria, No Urinary Frequency Musculoskeletal : positive Myalgia Skin : No rash Neuro : No Headache PMFSH Past Medical History Medical History Anxiety Cervical vertebral fusion Dyshidrotic eczema Failed cervical fusion Myofascial pain syndrome Onychomycosis Postlaminectomy syndrome of lumbar region Radiculopathy, lumbar region Thoracic radiculopathy due to degenerative joint disease of spine Surgical History History of bariatric surgery History of lumbar fusion History of lumbar laminectomy History of neck surgery Family History Family History (Updated 11/15/20 @ 08:42 by ALYSSA Rocha) Mother Liver disease Father Diabetes Sister Leukemia Social History Social History Housing: Apartment Alcohol intake: never Patient Tobacco Use Status: Never used Tobacco e-Cigarette/Vaping Use: Never Used Second Hand Smoke Exposure: No Advance Directives: No Advance Directives Information Provided: No service: No Current occupational status: disabled Physical Exam Vital Signs: Vital Signs: Last Vital Signs Temp 97.1 F 05/01/21 07:19 Pulse 84 05/01/21 07:19 Resp 20 05/01/21 07:19 BP 156/89 H 05/01/21 07:19 Pulse Ox 98 05/01/21 07:19 BMI result Body Mass Index 33.1 Appearance: Alert. Oriented X3. No acute distress. Eyes: Pupils equal, round and reactive to light. ENT: Pharynx normal. Neck: Normal inspection. Neck supple. CVS: Normal heart rate and rhythm. Pulses normal. Respiratory: No respiratory distress. Breath sounds normal. Abdomen: Soft and nontender. Skin: Skin warm and dry. Normal skin color. Normal skin turgor. Extremities: No lower extremity edema. Neuro: Oriented X 3. No motor deficit. No sensory deficit. MDM - URI/Sore Throat MDM Narrative Medical decision making narrative: 55 yo male not toxic vaccinated x 2 covid e xposure with URI symptoms at this time tested negative - sent home with precautions and expectant course - patient has normal O2 sats. Lab Data Labs: Lab Results 05/01/21 Range/Units 07:43 COVID-19 ([facility]) Negative (Negative) COVID-19 Clin Com See Note Discharge Plan Discharge Clinical Impression: Upper respiratory infection Qualifiers: URI type: unspecified URI Qualified Code(s): J06.9 - Acute upper respiratory infection, unspecified Patient Disposition: Home, Self-Care Instructions: Upper Respiratory Infection (ED) Additional Instructions: return to ED for any worsening symptoms or concerns repeat testing on monitor breathing quarantine wear a mask and protect others Prescriptions: No Action triamcinolone acetonide 0.025 % cream 1 appl topical BID Qty: 15 RF: 0 ibuprofen 800 mg tablet 800 mg PO Q12H 90 Days Qty: 180 RF: 1 cefpodoxime 200 mg tablet 200 mg PO BID 7 Days Qty: 14 RF: 0 phenazopyridine [Pyridium] 200 mg tablet 200 mg PO TID PRN (Reason: pain) Qty: 6 RF: 0 cholecalciferol (vitamin D3) 1,250 mcg (50,000 unit) capsule 1,250 mcg PO QWEEK Qty: 14 RF: 1 thiamine HCl (vitamin B1) [Vitamin B-1] 100 mg tablet 100 mg PO DAILY Qty: 90 RF: 1 oxycodone-acetaminophen 7.5-325 mg tablet 1 tab PO Q6H PRN (Reason: pain) 30 Days Qty: 120 RF: 0
== END 2021-05-01 09:10 | disposition home or self-care (01) ==
PROVIDERS: Emergency Provider Emergency Medicine; PCP Internal Medicine
DX: J06.9 Acute upper respiratory infection, unspecified (principal); Z20.822 Contact with and (suspected) exposure to COVID-19
CPT/HCPCS: 36415; 87635; 99283

== ENCOUNTER → 2021-05-18 08:01 | Outpatient (BNVA) | payer MEDICARE, MEDICAID, SELFPAY | PROVIDERS: PCP Internal Medicine; Visit Provider Anesthesiology | DX: Z51.81 Encounter for therapeutic drug level monitoring (principal); F11.20 Opioid dependence, uncomplicated; M96.1 Postlaminectomy syndrome, not elsewhere classified; M96.0 Pseudarthrosis after fusion or arthrodesis; M47.24 Other spondylosis with radiculopathy, thoracic region | CPT/HCPCS: 99212 ==

== ENCOUNTER → 2021-06-15 08:02 | Outpatient (BNVA) | payer MEDICARE, MEDICAID, SELFPAY | PROVIDERS: PCP Internal Medicine; Visit Provider Anesthesiology | DX: M96.1 Postlaminectomy syndrome, not elsewhere classified (principal); M96.0 Pseudarthrosis after fusion or arthrodesis; M47.27 Other spondylosis with radiculopathy, lumbosacral region | CPT/HCPCS: 99212 ==

== ENCOUNTER 2021-09-16 17:34 | Inpatient (IN) | payer MEDICARE, MEDICAID, SELFPAY ==
--- NOTE | ~2021-09-16 | CT_ITS ---
EXAMINATION: CT ABDOMEN AND PELVIS WITHOUT CONTRAST CLINICAL INFORMATION: Abdominal pain most marked in the right lower quadrant with nausea. History of gastric bypass COMPARISON: CT abdomen pelvis 02/19/2017 TECHNIQUE: Multidetector volumetric imaging was performed from the superior aspect of the liver through the pubic symphysis. Sagittal and coronal reformatted images were obtained on the technologist's workstation. This CT examination was performed using dose optimization techniques as appropriate, variously including the following: *Automated exposure control *Adjustment of mA and/or kV according to patient size (this includes techniques or standardized protocols for targeted exams where dose is matched to indication/reason for exam; i.e. extremities or head) *Use of iterative reconstruction technique DLP: 810 mGy-cm FINDINGS: LUNG BASES: The visualized lung bases are unremarkable. LIVER, GALLBLADDER, AND BILIARY TREE: The liver is normal in size, shape, and attenuation. No focal hepatic lesion or biliary ductal dilatation is present. The gallbladder is unremarkable with no evidence of radiopaque gallstones, gallbladder wall thickening, or obvious pericholecystic inflammatory changes. PANCREAS: Unremarkable. SPLEEN: Unremarkable. ADRENAL GLANDS: Unremarkable. KIDNEYS AND URETERS: The kidneys are normal in size, shape, and attenuation. No hydronephrosis, hydroureter, or calculi seen. Bilateral nonspecific perinephric stranding. BLADDER: Unremarkable. GASTROINTESTINAL TRACT: The appendix is grossly abnormal and dilated measuring 2 cm in diameter. Marked periappendiceal inflammatory changes seen in the surrounding fat. Two probable faintly calcified appendicoliths are present. A drainable fluid collection or free air is not seen. Colonic diverticulosis is present without diverticulitis. The small bowel is unremarkable. Status post gastric bypass procedure. ABDOMINAL WALL: No significant hernia is appreciated. LYMPH NODES: No retroperitoneal lymphadenopathy. VASCULAR: Unremarkable. PELVIC VISCERA: There is moderate prostatic enlargement measuring between 60 and 70 mL. OSSEOUS STRUCTURES: Degenerative changes present spine. CT/CT abdomen pelvis wo con IMPRESSION: Acute uncomplicated appendicitis. No extraluminal air or abscess. Incidental note made of BPH and colonic diverticulosis without diverticulitis Fleischner guidelines were followed. This critical result was discussed with Caroline Thompson MD@11:56pm and it was ascertained that the content and urgency of the report was understood at the time of direct communication.
[2021-09-16 18:07] VITALS: BP 148/94; PULSE 87; RESP 18; TEMP 36.6; O2SAT 98; BMI 31.7
[2021-09-16 18:28] LABS: Appearance Urine CLEAR; Color Urine YELLOW; Glucose Urine UA NEG (NEG); Leukocyte Esterase Urine NEG (NEG); Nitrite Urine NEG (NEG); Specific Gravity - Urine <= 1.005 (1.005-1.025); Urine Blood NEG (NEG); Urine Ketones NEG (NEG); Urine Protein NEG (NEG-TRACE)
[2021-09-16 18:35] LABS: MANUAL DIFF FLAG NO
[2021-09-16 18:37] LABS: Basophils Percent Auto 0.3 % (0-2); Eosinophils Absolute Auto 0.1 X10*3/uL (0.0-0.4); Eosinophils Percent Auto 0.9 % (0-4); Hematocrit 44.4 % (42.0-52.0); Hemoglobin 14.6 g/dl (14.0-18.0); Imm Gran Abs Auto 0.03 X10*3/uL (0.00-0.03); Imm Gran Pct Auto 0.2 % (0.0-0.4); Lymphocytes Absolute Auto 1.7 X10*3/uL (1.2-4.9); Lymphocytes Percent Auto 12.2 % (20-40); Mean Corpuscular HGB Conc 32.9 g/dl (31.0-36.0); Mean Corpuscular Hemoglobin 27.7 pg (27.0-33.0); Mean Corpuscular Volume 84.1 fL (80.0-98.0); Mean Platelet Volume 10.3 fL (9.4-12.4); Monocytes Absolute Auto 0.9 X10*3/uL (0.1-1.2); Monocytes Percent Auto 6.4 % (2-11); Neutrophils Absolute Auto 10.9 x10*3/uL (2.0-8.3); Platelet Count 249 X10*3/uL (160-400); Red Blood Count 5.28 X10*6/uL (4.60-5.80); Red Cell Distribution Width 11.9 % (11.0-16.0); White Blood Count 13.6 X10*3/uL (4.8-10.8)
[2021-09-16 18:52] LABS: Alanine Aminotransferase 15 U/L (0-40); Albumin Level 4.3 g/dL (3.5-5.0); Alkaline Phosphatase 77 U/L (39-117); Anion Gap 13 (12-20); Aspartate Amino Transferase 13 U/L (5-37); Bilirubin Total 0.8 mg/dL (0.0-1.0); Blood Urea Nitrogen 7 mg/dL (9-16); Carbon Dioxide 29 mmol/L (22-29); Chloride 103 mmol/L (96-108); Creatinine Clr Calc Pharmacy 113.1; Estimated Glomerular Filt Rate > 60; Glucose Random 140 mg/dL (60-115); Potassium 4.7 mmol/L (3.3-5.1); Sodium 140 mmol/L (135-145); Total Protein 7.9 g/dL (6.5-8.0)
--- NOTE | 2021-09-16 22:47 | ED_ITS ---
HPI - Abdominal Pain General Chief Complaint: Abdominal Pain Stated Complaint: stomach pain Time Seen by Provider: 09/16/21 22:29 Source: patient and family Mode of arrival: ambulatory History of Present Illness HPI narrative: 56-year-old male with presentation for increasing abdominal pain since Saturday that initially was associated with multiple episodes of nonbloody diarrhea as well as nausea, he states he still passes flatus but is unable to vomit because of his gastric bypass, reports that he is no longer able to have a bowel move ment and that he feels bloated and pain is maximal in the right lower quadrant. He denies any urinary symptoms, shortness of breath/chest pain/palpitations. Related Data Previous Rx's Medication Instructions Recorded triamcinolone acetonide 0.025 % 1 appl TOPICAL BID #15 g 09/08/20 topical cream cholecalciferol (vitamin D3) 1,250 1,250 mcg PO QWEEK #14 cap 11/15/20 mcg (50,000 unit) capsule thiamine HCl (vitamin B1) 100 mg 100 mg PO DAILY #90 tab 11/15/20 tablet (Vitamin B-1) cefpodoxime 200 mg tablet 200 mg PO BID 7 Days #14 tab 01/04/21 phenazopyridine 200 mg tablet 200 mg PO TID PRN #6 tab 01/04/21 (Pyridium) ibuprofen 800 mg tablet 800 mg PO Q12H 90 Days #180 tab 02/24/21 oxycodone-acetaminophen 7.5 mg-325 1 tab PO Q6H PRN 30 Days #120 tab 05/18/21 mg tablet Allergies Allergy/AdvReac Type Severity Reaction Status Date / Time morphine [MORPHINE] Allergy Severe SHORTNESS Verified 09/16/21 18:09 OF BREATH, resp depression adhesive tape [ADHESIVE TAPE] Allergy Intermediate RASH Verified 09/16/21 18:09 metformin [METFORMIN] Allergy Intermediate RASH Verified 09/16/21 18:09 Review of Systems Review of Systems Pertinent positives and negatives as stated in HPI 10 point review of systems is otherwise negative. [facility] Past Medical History Source: nursing notes reviewed Medical History Anxiety Cervical vertebral fusion Dyshidrotic eczema Failed cervical fusion Myofascial pain syndrome Onychomycosis Postlaminectomy syndrome of lumbar region Radiculopathy, lumbar region Thoracic radiculopathy due to degenerative joint disease of spine Surgical History History of bariatric surgery History of lumbar fusion History of lumbar laminectomy History of neck surgery Family History Family History Mother Liver disease Father Diabetes Sister Leukemia Social History Social History Housing: Apartment Alcohol intake: never Patient Tobacco Use Status: Never used Tobacco e-Cigarette/Vaping Use: Never Used Second Hand Smoke Exposure: No Advance Directives: No Advance Directives Information Provided: No service: No Current occupational status: disabled Physical Exam ED Vital Signs: Vital Signs - 24 hr 09/16/21 18:07 09/16/21 23:09 Temperature 97.8 F Pulse Rate 87 70 Respiratory Rate 18 16 Blood Pressure 148/94 H 116/77 Pulse Oximetry 98 98 BMI result Body Mass Index 31.7 VITAL SIGNS: Reviewed. GENERAL: Well developed, well nourished, in mild distress. HEAD: Normocephalic/atraumatic EYES: PERRLA, EOMI EARS: Ext canals without abnormality OROPHARYNX: no oral lesions noted, posterior pharynx clear LUNGS: Normal breath sounds. No adventitious sounds or accessory muscle use. SpO2<98> CARDIOVASCULAR: Regular rate and rhythm without noted murmurs ABDOMEN: Soft, exquisitely tender in the right lower quadrant with minimal palpation and hypoactive bowel sounds. MUSCULOSKELETAL: No tenderness, deformities, or effusions noted on gross inspection. EXTREMITIES: No cyanosis, clubbing or edema. SKIN: Inspection of the skin reveals no rashes NEUROLOGIC: Alert and oriented x 4. Strength and sensation to light touch were grossly intact x 4. Course Course Course Narrative: 2307: 56-year-old male with history and clinical presentation suspicious for SBO, diverticulitis. Review of all investigations consistent with acute appendicitis. Patient informed of all investigations, received antibiotics as well as IV fluids, and this case was discussed with Dr. Johnston who accepts admission. MDM - Abdominal Pain Lab Data Result diagrams: 09/16/21 18:28 09/16/21 18:28 Labs: Lab Results 09/16/21 09/16/21 09/16/21 Range/Units 18:06 18:28 18:28 WBC 13.6 H (4.8-10.8) X10*3/uL RBC 5.28 (4.60-5.80) X10*6/uL Hgb 14.6 (14.0-18.0) g/dl Hct 44.4 (42.0-52.0) % MCV 84.1 (80.0-98.0) fL MCH 27.7 (27.0-33.0) pg MCHC 32.9 (31.0-36.0) g/dl RDW 11.9 (11.0-16.0) % Plt Count 249 (160-400) X10*3/uL MPV 10.3 (9.4-12.4) fL Immature Gran % (Auto) 0.2 (0.0-0.4) % Neut % (Auto) 80.0 H (45-73) % Lymph % (Auto) 12.2 L (20-40) % Marshall % (Auto) 6.4 (2-11) % Eos % (Auto) 0.9 (0-4) % Baso % (Auto) 0.3 (0-2) % Lymph # (Auto) 1.7 (1.2-4.9) X10*3/uL Marshall # (Auto) 0.9 (0.1-1.2) X10*3/uL Eos # (Auto) 0.1 (0.0-0.4) X10*3/uL Baso # (Auto) 0.0 (0.0-0.2) X10*3/uL Abs Immat Gran (auto) 0.03 (0.00-0.03) X10*3/uL Absolute Neuts (auto) 10.9 H (2.0-8.3) x10*3/uL Absolute Nucleated RBC 0.000 (0.0-0.012) X10*3/uL Nucleated RBC % (auto) 0.0 (0.0-0.2) /100WBC Sodium 140 (135-145) mmol/L Potassium 4.7 D (3.3-5.1) mmol/L Chloride 103 (96-108) mmol/L Carbon Dioxide 29 (22-29) mmol/L Anion Gap 13 (12-20) BUN 7 L (9-16) mg/dL Creatinine 0.85 (0.5-1.4) mg/dL Estim Creat Clear Calc 113.1 Estimated GFR > 60 Random Glucose 140 H D (60-115) mg/dL Lactic Acid (0.5-2.0) mmol/L Calcium 10.0 D (8.4-10.2) mg/dL Total Bilirubin 0.8 (0.0-1.0) mg/dL AST 13 (5-37) U/L ALT 15 (0-40) U/L Alkaline Phosphatase 77 (39-117) U/L Total Protein 7.9 (6.5-8.0) g/dL Albumin 4.3 (3.5-5.0) g/dL Lipase 19 (8-78) U/L Urine Color YELLOW Urine Appearance CLEAR Urine pH 6.0 (5.0-8.0) Ur Specific [place] <= 1.005 (1.005-1.025) Urine Protein NEG (NEG-TRACE) MG/DL Urine Glucose (UA) NEG (NEG) MG/DL Urine Ketones NEG (NEG) MG/DL Urine Blood NEG (NEG) Urine Nitrite NEG (NEG) Ur Leukocyte Esterase NEG (NEG) COVID-19 ([facility]) (Negative) COVID-19 Clin Com Influenza Type A ([facility]A) (Negative) Influenza Type B (MINA) (Negative) Influenza A & B Note 09/16/21 09/16/21 09/16/21 Range/Units 23:07 23:07 23:07 WBC (4.8-10.8) X10*3/uL RBC (4.60-5.80) X10*6/uL Hgb (14.0-18.0) g/dl Hct (42.0-52.0) % MCV (80.0-98.0) fL MCH (27.0-33.0) pg MCHC (31.0-36.0) g/dl RDW (11.0-16.0) % Plt Count (160-400) X10*3/uL MPV (9.4-12.4) fL Immature Gran % (Auto) (0.0-0.4) % Neut % (Auto) (45-73) % Lymph % (Auto) (20-40) % Marshall % (Auto) (2-11) % Eos % (Auto) (0-4) % Baso % (Auto) (0-2) % Lymph # (Auto) (1.2-4.9) X10*3/uL Marshall # (Auto) (0.1-1.2) X10*3/uL Eos # (Auto) (0.0-0.4) X10*3/uL Baso # (Auto) (0.0-0.2) X10*3/uL Abs Immat Gran (auto) (0.00-0.03) X10*3/uL Absolute Neuts (auto) (2.0-8.3) x10*3/uL Absolute Nucleated RBC (0.0-0.012) X10*3/uL Nucleated RBC % (auto) (0.0-0.2) /100WBC Sodium (135-145) mmol/L Potassium (3.3-5.1) mmol/L Chloride (96-108) mmol/L Carbon Dioxide (22-29) mmol/L Anion Gap (12-20) BUN (9-16) mg/dL Creatinine (0.5-1.4) mg/dL Estim Creat Clear Calc Estimated GFR Random Glucose (60-115) mg/dL Lactic Acid 1.1 (0.5-2.0) mmol/L Calcium (8.4-10.2) mg/dL Total Bilirubin (0.0-1.0) mg/dL AST (5-37) U/L ALT (0-40) U/L Alkaline Phosphatase (39-117) U/L Total Protein (6.5-8.0) g/dL Albumin (3.5-5.0) g/dL Lipase (8-78) U/L Urine Color Urine Appearance Urine pH (5.0-8.0) Ur Specific [place] (1.005-1.025) Urine Protein (NEG-TRACE) MG/DL Urine Glucose (UA) (NEG) MG/DL Urine Ketones (NEG) MG/DL Urine Blood (NEG) Urine Nitrite (NEG) Ur Leukocyte Esterase (NEG) COVID-19 ([facility]) Negative (Negative) COVID-19 Clin Com See Note Influenza Type A ([facility]) Negative (Negative) Influenza Type B (MINA) Negative (Negative) Influenza A & B Note See Note Discharge Plan Discharge Clinical Impression: Acute appendicitis, History of gastric bypass Patient Disposition: Admitted As Inpatient Prescriptions: No Action triamcinolone acetonide 0.025 % cream 1 appl topical BID Qty: 15 0RF ibuprofen 800 mg tablet 800 mg PO Q12H 90 Days Qty: 180 1RF cefpodoxime 200 mg tablet 200 mg PO BID 7 Days Qty: 14 0RF Rx Instructions: must administer with a meal/food phenazopyridine [Pyridium] 200 mg tablet 200 mg PO TID PRN (Reason: pain) Qty: 6 0RF cholecalciferol (vitamin D3) 1,250 mcg (50,000 unit) capsule 1,250 mcg PO QWEEK Qty: 14 1RF thiamine HCl (vitamin B1) [Vitamin B-1] 100 mg tablet 100 mg PO DAILY Qty: 90 1RF oxycodone-acetaminophen 7.5-325 mg tablet 1 tab PO Q6H PRN (Reason: pain) 30 Days Qty: 120 0RF
[2021-09-16 23:09] VITALS: BP 116/77; PULSE 70; RESP 16; O2SAT 98
[2021-09-16 23:11] LABS: Lipase 19 U/L (8-78)
[2021-09-16 23:34] LABS: IDNOW Serial# 08D9AD1C; Influenza A Negative (Negative); Influenza B2 Negative (Negative); Lactic Acid 1.1 mmol/L (0.5-2.0)
[2021-09-16 23:35] LABS: COVID-19 Test Negative (Negative)
[2021-09-16] MEDS: Ketorolac Tromethamine 30 MG/ML VIAL 15 MG IVPUSH (23:58)
[2021-09-16] MEDS: ondansetron HCL 4 MG/2 ML VIAL IVPUSH (23:58)
[2021-09-17] VITALS (10 sets, daily range): BP systolic 105–126; BP diastolic 55–80; PULSE 67–97; RESP 15–19; TEMP 36.6–36.9; O2SAT 93–100; BMI 32.8
[2021-09-17] MEDS: 0.9 % Sodium Chloride 1,000 ML 999 ML IV
--- NOTE | 2021-09-17 00:18 | PM.HPGS ---
History of Present Illness History of Present Illness Date of Service: 09/17/21 Chief complaint: Acute appendicitis Narrative: Mac Baires is a 56 year old male Presenting with complaints of abdominal pain in the lower abdomen starting 1 week ago on Saturday. The pain started with eating bad chicken and resulted in multiple episodes of nonbloody diarrhea associated with nausea without vomiting. Patient reports a prior gastric bypass surgery in [address] Vázquez. He has a prior history of diabetes was currently off diabetic medications. Patient reports no bowel movements for the last several days and feels very bloated with pain mainly in the right lower quadrant. He denied fever or chills. Upon presentation to the emergency department he was noted to be tender in the right lower quadrant. Initial concern was for bowel obstruction however subsequent CT abdomen and pelvis revealed a thickened appendix and fecalith suggestive of acute appendicitis. He denies a prior history of similar pain. Review of Systems Constitutional: Constitutional: Denies chills, Denies fever(s), Denies headache(s) and Denies poor appetite ENT: Denies dizziness and Denies headache(s) Cardiovascular: Cardiovascular: Denies chest pain, Denies rapid heart rate, Denies palpitations and Denies slow heart rate Respiratory: Respiratory: Denies chest congestion, Denies cough, Denies pain on inspiration and Denies wheezing Gastrointestinal: Gastrointestinal: Reports abdominal pain, Reports bloating, Denies change in stool character, Reports constipation, Denies diarrhea, Reports nausea, Denies vomiting and Denies hematemesis Musculoskeletal: Musculoskeletal: Reports back pain, Denies arthralgias, Denies joint swelling and Denies numbness Integumentary/Breasts: Skin/Breast: Denies change in pigmentation, Denies erythema and Denies rash Neurologic: Denies dizziness, Denies headache(s) and Denies numbness Psychiatric: Psychiatric: Denies anxiety and Denies depression Endocrine: Endocrine: Denies palpitations Hematologic/Lymphatic: Hematologic/Lymphatic: Denies easy bleeding, Denies easy bruising and Denies lymphadenopathy Allergic/Immunologic: Allergic/Immunologic: Denies wheezing PMFSH Past Medical History Medical History Anxiety Cervical vertebral fusion Dyshidrotic eczema Failed cervical fusion Myofascial pain syndrome Onychomycosis Postlaminectomy syndrome of lumbar region Radiculopathy, lumbar region Thoracic radiculopathy due to degenerative joint disease of spine Family History Family History Mother Liver disease Father Diabetes Sister Leukemia Surgical History Surgical History History of bariatric surgery History of lumbar fusion History of lumbar laminectomy History of neck surgery Social History Social History Housing: Apartment Alcohol intake: current Alcohol intake frequency: does not drink Patient Tobacco Use Status: Never used Tobacco e-Cigarette/Vaping Use: Never Used Second Hand Smoke Exposure: No Use of substances other than those prescribed or required for medical reasons: No Advance Directives: No Advance Directives Information Provided: No service: No Current occupational status: disabled Meds Allergies Allergy/AdvReac Type Severity Reaction Status Date / Time morphine [MORPHINE] Allergy Severe SHORTNESS Verified 09/16/21 18:09 OF BREATH, resp depression adhesive tape [ADHESIVE TAPE] Allergy Intermediate RASH Verified 09/16/21 18:09 metformin [METFORMIN] Allergy Intermediate RASH Verified 09/16/21 18:09 Active Medications: Current Medications Piperacillin Sod/Tazobactam (Sod 3.375 gm/ Sodium Chloride) 50 mls @ 100 mls/hr IV ONCE ONE Stop: 09/17/21 00:30 Physical Exam Vital Signs: Vital Signs: Last Vital Signs Temp 97.8 F 09/16/21 18:07 Pulse 70 09/16/21 23:09 Resp 16 09/16/21 23:09 BP 116/77 09/16/21 23:09 Pulse Ox 98 09/16/21 23:09 BMI result Body Mass Index 31.7 Const: General: cooperative, comfortable and well developed Nutritional Appearance: well nourished Orientation/consciousness: patient oriented x3 Eyes: Sclerae: sclerae normal EOM: EOMs intact bilaterally Neck: Neck: Yes normal visual inspection Resp: Effort & Inspection: normal respiratory effort, no cough, no respiratory distress and no stridor Cardio: Jugular venous distension: no JVD GI: Inspection: Yes normal to inspection Palpation (GI): Soft to palpation, Tenderness to palpation present (GI) in the RLQ and at McBurney's point, no guarding, not rigid, no hernias and no masses Skin: General skin exam: dry skin, no ecchymosis and no erythema Rashes: no rashes Neuro: General: patient oriented x3 and no focal motor deficits Extrem: General: Yes full ROM and Yes no clubbing, cyanosis or edema Psych: Appearance: grossly normal Results Results Labs: Short CBC 09/16/21 Range/Units 18:28 WBC 13.6 H (4.8-10.8) X10*3/uL Hgb 14.6 (14.0-18.0) g/dl Hct 44.4 (42.0-52.0) % Plt Count 249 (160-400) X10*3/uL BMP 09/16/21 18:28 Sodium 140 Potassium 4.7 D Chloride 103 Carbon Dioxide 29 BUN 7 L Creatinine 0.85 Calcium 10.0 D Liver Function 09/16/21 Range/Units 18:28 Total Bilirubin 0.8 (0.0-1.0) mg/dL AST 13 (5-37) U/L ALT 15 (0-40) U/L Alkaline Phosphatase 77 (39-117) U/L Albumin 4.3 (3.5-5.0) g/dL Urine 09/16/21 Range/Units 18:06 Urine Color YELLOW Urine Appearance CLEAR Urine pH 6.0 (5.0-8.0) Ur Specific [place] <= 1.005 (1.005-1.025) Urine Protein NEG (NEG-TRACE) MG/DL Urine Glucose (UA) NEG (NEG) MG/DL Assessment and Plan (1) Acute appendicitis: Status: Acute (2) History of gastric bypass: Status: Acute Plan 56-year-old male patient presenting with complaints of abdominal pain in the right lower quadrant with associated constipation and nausea. Patient also reports decreased appetite for 1 week. He has been maintaining hydration and urinating normally. Examination today reveals tenderness in the right lower quadrant over McBurney's point with a positive Rovsing sign. CT confirms a thickened appendix consistent with acute appendicitis. I recommended a laparoscopic or possible open appendectomy. After discussion of the procedure, risks, and alternatives, he consents to a laparoscopic or possible open appendectomy. Quality Stroke Does the patient have a stroke diagnosis?: No VTE Prior VTE?: No VTE Risk Level:: Surgical - high VTE Device Contraindication: N/A - Device Ordered VTE Drug Contraindication: Treatment Not Tolerated Procedures Date of Service Date of Service: 09/17/21
[2021-09-17] MEDS: Piperacillin Sodium/Tazobactam 3.375 GM in 0.9 % Sodium Chloride 50 ML IV ×4 (01:06→20:19)
--- NOTE | 2021-09-17 05:09 | PC.NURSE ---
I assumed nursing care of Mac upon his arrival to ED bed 19. He presents for evaluation of R sided abdominal pain. He remains alert, oriented x 3, makes eye contact with staff and has remained calm and cooperative. Respirations are spontaneous and non-labored, no cyanosis, he speaks in full sentences, room air sats are WNL. Mac is aware that he is on the OR schedule for an appendectomy and verbalizes an understanding of this. He has remained NPO since arrival. We will continue to monitor Mac. The R sided abdominal pain that was 8/10 improved to 2/10 after Toradol IVP./
[2021-09-17] MEDS: Dextrose 5 % and Lactated Ring 1,000 ML 125 ML IVCONT ×3 (07:58→20:22)
[2021-09-17] MEDS: 0.9 % Sodium Chloride Flush 3 ML SYRINGE IVFLUSH ×2 (07:59→20:20)
--- NOTE | 2021-09-17 09:00 | PHA.MEDREC ---
Pharmacy Consult ? Medication Reconciliation Pharmacy has completed the medication reconciliation. Patient says he has taken supplements before but hasnt taken them in a long time
--- NOTE | 2021-09-17 11:31 | W.PM.OPN ---
Operative Note Operative Note Date of Service: 09/17/21 Narrative: Preoperative diagnosis: Acute appendicitis Postoperative diagnosis: Same, perforated with abscess Procedure: Laparoscopic appendectomy, drainage of abscess Surgeon: Jovan Johnston MD Commercial Service Technician: no physician Anesthesia: General endotracheal Indications for procedure: 56 year old male patient with a one week history of abdominal pain found to have acute appendicitis on CT Operative findings: perforated acute appendicitis with abscess Specimen: appendix Estimated blood loss:10 mls Complications: none Procedure details: Patient was brought to the OR and placed in a supine position. After administering general anesthesia the patient's abdomen was prepped with ChloraPrep and draped in a sterile fashion. A surgical time-out was called and consent confirmed. Patient received preoperative antibiotics and Venodyne boots were in place. Local anesthesia consisting of 0.25% Sensorcaine with epinephrine was infiltrated in periumbilical region. A 5 mm incision was made below the umbilicus and carried down through subcutaneous tissue. A Veress needle was then inserted while elevating abdominal cavity with towel clips. After a positive drop test the abdomen was insufflated to a pressure of 15 mm of mercury. The Veress needle was removed and a 5 mm trocar inserted. The camera was then inserted in the abdomen explored. A 2nd 5 mm trocars placed in the lower midline. A 12 mm trocar was then placed in the left lower quadrant. The patient was then placed in a Trendelenburg position and rotated to the left. The appendix was identified in the right lower quadrant, found to be acutely inflamed with a contained abscess within the mesentary. The abscess was drained and the mesentery of the appendix then divided using the LigaSure. The appendiceal artery was cauterized and divided using the LigaSure. Dissection was continued down to the base of the cecum. An Endo-HECTOR stapler with a purple reload was then used to divide the appendix at the base with the cecum. The appendix was then placed in Endo-Catch bag and brought out through the left lower quadrant incision. The abdomen was then irrigated with saline solution and suctioned dry. Wounds were checked for hemostasis. CO2 was then evacuated from the abdominal cavity and all trocars removed. Fascia was closed in the left lower quadrant incision using a [id number] 0 Polysorb suture. Skin was closed at all incisions using a subcuticular 4-0 Polysorb suture. Steri-Strips 2 x 2 gauze and Tegaderm were then applied. The patient tolerated the procedure well. Sponge, instrument, needle counts reported as correct. The patient was transferred to PACU in stable condition.
--- NOTE | 2021-09-17 11:43 | PC.NURSE ---
Patient entered pacu with #22 PRN angio located in the left wrist. Site asymptomatic.
[2021-09-17] MEDS: oxyCODONE HCl Immed Release 5 MG TABLET PO (15:35)
[2021-09-17] MEDS: oxyCODONE HCl Immed Release 5 MG TABLET 10 MG PO (18:29)
[2021-09-18] VITALS: BP 120/62; PULSE 75; RESP 18; TEMP 36.6; O2SAT 97
[2021-09-18] MEDS: oxyCODONE HCl Immed Release 5 MG TABLET PO ×3 (01:25→18:50)
[2021-09-18] MEDS: Piperacillin Sodium/Tazobactam 3.375 GM in 0.9 % Sodium Chloride 50 ML IV ×4 (02:01→19:18)
[2021-09-18] MEDS: Dextrose 5 % and Lactated Ring 1,000 ML 125 ML IVCONT ×2 (04:30→12:14)
[2021-09-18 05:39] LABS: MANUAL DIFF FLAG NO
[2021-09-18 05:51] LABS: Basophils Percent Auto 0.1 % (0-2); Eosinophils Percent Auto 0.1 % (0-4); Hematocrit 38.1 % (42.0-52.0); Hemoglobin 12.3 g/dl (14.0-18.0); Imm Gran Abs Auto 0.08 X10*3/uL (0.00-0.03); Imm Gran Pct Auto 0.5 % (0.0-0.4); Lymphocytes Absolute Auto 1.1 X10*3/uL (1.2-4.9); Lymphocytes Percent Auto 6.7 % (20-40); Mean Corpuscular HGB Conc 32.3 g/dl (31.0-36.0); Mean Corpuscular Hemoglobin 27.4 pg (27.0-33.0); Mean Corpuscular Volume 84.9 fL (80.0-98.0); Mean Platelet Volume 10.8 fL (9.4-12.4); Monocytes Absolute Auto 0.8 X10*3/uL (0.1-1.2); Neutrophils Absolute Auto 13.9 x10*3/uL (2.0-8.3); Neutrophils Percent Auto 87.6 % (45-73); Platelet Count 231 X10*3/uL (160-400); Red Blood Count 4.49 X10*6/uL (4.60-5.80); Red Cell Distribution Width 12.1 % (11.0-16.0); White Blood Count 15.8 X10*3/uL (4.8-10.8)
[2021-09-18 07:37] VITALS: BP 106/60; PULSE 64; RESP 18; TEMP 36.8; O2SAT 97
--- NOTE | 2021-09-18 08:52 | P.PNGS_ITS ---
Subjective Subjective Date of Service: 09/18/21 Interval history: Feels overall better but c/o right shoulder pain. Mild incisional pain. Tolerating solid diet. Has not been OOB yet. Physical Exam Vital Signs: Vital Signs: Last Vital Signs Temp 98.2 F 09/18/21 07:37 Pulse 64 09/18/21 07:37 Resp 18 09/18/21 07:37 BP 106/60 09/18/21 07:37 Pulse Ox 97 09/18/21 07:37 BMI result Body Mass Index 32.8 Const: General: comfortable, no acute distress and alert Orientation/consciousness: patient oriented x3 Resp: Effort & Inspection: normal respiratory effort GI: Inspection: No distended and Yes incision (dressings c/d/i) Palpation (GI): Soft to palpation, Tenderness to palpation present (GI) (mild, incisional), no guarding and not rigid Percussion: Yes normal to percussion Skin: General skin exam: no rashes or lesions noted Neuro: General: patient oriented x3 Extrem: General: Yes no clubbing, cyanosis or edema Objective Data Active Medications Hydromorphone HCl (Hydromorphone Hcl 1 Mg/Ml Syringe) 0.5 mg IVPUSH Q3H PRN; Protocol PRN Reason: Pain, Severe (Pain Scale 7-10) Acetaminophen (Ofirmev) 1,000 mg in 100 mls @ 400 mls/hr IV Q6H ON LICENSE OF [facility] Last Infusion: 09/18/21 02:15 Dose: 0 mls/hr Documented by: FARAZ Dextrose/Lactated Ringer's (D5lr) 1,000 mls @ 125 mls/hr IVCONT .Q8H ON LICENSE OF [facility] Last Admin: 09/18/21 04:30 Dose: 125 mls/hr Documented by: FARAZ Piperacillin Sod/Tazobactam (Sod 3.375 gm/ Sodium Chloride) 50 mls @ 100 mls/hr IV Q6H ON LICENSE OF [facility] Last Infusion: 09/18/21 02:45 Dose: 0 mls/hr Documented by: FARAZ Ondansetron HCl (Ondansetron Hcl 4 Mg/2 Ml Vial) 4 mg IVPUSH QID PRN PRN Reason: Nausea Oxycodone HCl (Oxycodone Hcl Immed Release 5 Mg Tablet) 5 mg PO Q6H PRN PRN Reason: Pain, Moderate (Pain Scale 4-6 Last Admin: 09/18/21 01:25 Dose: 5 mg Documented by: FARAZ Pharmacy Consult (Consult Rx Perform Med Rec) 1 each MISCELLANE ONCE PRN PRN Reason: Consult order Sodium Chloride (0.9 % Sodium Chloride Flush 3 Ml Syringe) 3 ml IVFLUSH QSHIFT [place] Last Admin: 09/17/21 20:20 Dose: 3 ml Documented by: FARAZ Zolpidem Tartrate (Zolpidem Tartrate 5 Mg Tablet) 5 mg PO BEDTIME PRN PRN Reason: Insomnia Labs CBC & Chem 7: 09/18/21 05:26 09/16/21 18:28 Labs: Laboratory Results - last 24 hr 09/18/21 05:26 MCV 84.9 MCH 27.4 MCHC 32.3 RDW 12.1 Plt Count 231 MPV 10.8 Immature Gran % (Auto) 0.5 H Neut % (Auto) 87.6 H Lymph % (Auto) 6.7 L [place] % (Auto) 5.0 Eos % (Auto) 0.1 Baso % (Auto) 0.1 Lymph # (Auto) 1.1 L [place] # (Auto) 0.8 Eos # (Auto) 0.0 Baso # (Auto) 0.0 Abs Immat Gran (auto) 0.08 H Absolute Neuts (auto) 13.9 H Absolute Nucleated RBC 0.000 Nucleated RBC % (auto) 0.0 Microbiology Microbiology Results: Microbiology 09/16/21 23:07 Blood Culture - Preliminary Blood - Venous No growth after 24 hours. 09/16/21 23:07 Blood Culture - Preliminary Blood - Venous No growth after 24 hours. Procedures Date of Service Date of Service: 09/18/21 Progress Note: A&P Assessment and plan (1) Acute appendicitis: Status: Acute (2) S/P laparoscopic appendectomy: Status: Acute Plan 56 year old male admitted with acute appendicitis. POD #1 s/p lap appy with drainage of abscess. Had a contained abscess within the mesentery. On IV zosyn. Feels better this morning but c/o referred right shoulder pain. VSS. Abd exam benign with appropriate post op tenderness. Dressings c/d/i. WBC up this morning, likely reactive. Will repeat tomorrow. Encouraged OOB/ambulation for referred pain. IS use. Will need to remain inpatient for abx given abscess- continue IV zosyn. Time Spent With Patient Time: Total time spent is greater than 50% in coordination of care (as documented) at patient's floor/unit and/or counseling patient: Quality Stroke Does the patient have a stroke diagnosis?: No VTE Prior VTE?: No VTE Risk Level:: Surgical - high VTE Device Contraindication: N/A - Device Ordered VTE Drug Contraindication: Treatment Not Tolerated
[2021-09-18] MEDS: 0.9 % Sodium Chloride Flush 3 ML SYRINGE IVFLUSH ×2 (09:11→19:19)
--- NOTE | 2021-09-18 14:07 | HO.POSTANES ---
Post Anesthesia Evaluation Post Anesthesia Evaluation Vital Signs: Vital Signs Temp Pulse Resp BP Pulse Ox 09/18/21 07:37 98.2 F 64 18 106/60 97 Anesthesia: General Endotracheal-GETA Mental Status: Awake Pain Control: Satisfactory Nausea/Vomiting: None Hydration: Adequate Anesthesia-Related Issues: No Anes. Related Issues
--- NOTE | 2021-09-18 15:59 | MHC.CM.PN ---
nurse bilingual case manager note electronic medicl record reviwed along with case disucssed with the staff nurse . met with patient he has a extensive history of muscular problems / surgery which at one point he needed to be in wheelchair. had vna and pcs through [employer] , he no can walk with walker but can only stand and walk shoprt distanceds , he can go up down stairs but at his own pace and only a few with side railings , he is able to get in /out of his car and can drive , nut mosy his family , he reported he has handicap housing shower chair , bars etc. he has no vnano dme services in the home , discharge oplan home reinaldo services at this time s./p lap appy with perforated abscess currently on iv abx , bilingual case manager to continue to follow for any changes in discharge needs pcp [facility] josselin [facility] 09/18 22
[2021-09-18 16:00] VITALS: BP 144/55; PULSE 81; RESP 18; TEMP 36.7; O2SAT 96
[2021-09-18 23:30] VITALS: BP 134/75; PULSE 77; RESP 18; TEMP 37.1; O2SAT 99
[2021-09-19] MEDS: oxyCODONE HCl Immed Release 5 MG TABLET PO (00:47)
[2021-09-19] MEDS: Dextrose 5 % and Lactated Ring 1,000 ML 80 ML IVCONT (02:22)
[2021-09-19] MEDS: Piperacillin Sodium/Tazobactam 3.375 GM in 0.9 % Sodium Chloride 50 ML IV ×4 (02:39→20:24)
[2021-09-19 03:41] VITALS: BP 146/74; PULSE 76; RESP 18; TEMP 36.9; O2SAT 97
[2021-09-19 05:49] LABS: MANUAL DIFF FLAG NO
[2021-09-19 05:52] LABS: Basophils Percent Auto 0.4 % (0-2); Eosinophils Absolute Auto 0.1 X10*3/uL (0.0-0.4); Eosinophils Percent Auto 1.1 % (0-4); Hemoglobin 12.1 g/dl (14.0-18.0); Imm Gran Abs Auto 0.04 X10*3/uL (0.00-0.03); Imm Gran Pct Auto 0.4 % (0.0-0.4); Lymphocytes Absolute Auto 1.3 X10*3/uL (1.2-4.9); Mean Corpuscular HGB Conc 32.7 g/dl (31.0-36.0); Mean Corpuscular Hemoglobin 27.8 pg (27.0-33.0); Mean Corpuscular Volume 84.9 fL (80.0-98.0); Mean Platelet Volume 10.4 fL (9.4-12.4); Monocytes Absolute Auto 0.7 X10*3/uL (0.1-1.2); Monocytes Percent Auto 6.3 % (2-11); Neutrophils Absolute Auto 9.2 x10*3/uL (2.0-8.3); Neutrophils Percent Auto 80.8 % (45-73); Platelet Count 247 X10*3/uL (160-400); Red Blood Count 4.36 X10*6/uL (4.60-5.80); Red Cell Distribution Width 12.1 % (11.0-16.0); White Blood Count 11.4 X10*3/uL (4.8-10.8)
[2021-09-19 07:39] VITALS: BP 157/83; PULSE 78; RESP 17; TEMP 36.6; O2SAT 97
--- NOTE | 2021-09-19 09:08 | PM.DS ---
DS: Providers Provider Date of Service: 09/19/21 Date of admission: 09/17/21 00:14 Primary care physician: Dominic Evans MD Attending physician on admission: Jovan Johnston Attending physician on discharge: Jovan Johnston DS: Diagnosis Discharge Diagnosis (1) Acute appendicitis: Status: Acute (2) S/P laparoscopic appendectomy: Status: Acute DS: Summary Hospital Course Hospital Course: BRIEF HPI: HOSPITAL COURSE: Status at Discharge Functional status at discharge: independent ambulation Overall status at discharge: patient is progressing back to baseline Time Spent with Patient Time attestation: Total time spent providing and/or coordinating discharge services: Discharge coordination time: Less than 30 minutes Quality: Safe Use of Opioids Does Pt have an Active Cancer Diagnosis on the Problem List?: No Quality: Stroke Does the patient have a stroke diagnosis?: No Physical Exam Vital Signs: Vital Signs: Last Vital Signs Temp 97.8 F 09/19/21 07:39 Pulse 78 09/19/21 07:39 Resp 17 09/19/21 07:39 BP 157/83 H 09/19/21 07:39 Pulse Ox 97 09/19/21 07:39 BMI result Body Mass Index 32.8 Const: General: comfortable, no acute distress and alert Orientation/consciousness: patient oriented x3 GI: Inspection: No distended and Yes incision (dressings c/d/i) Palpation (GI): Soft to palpation, Tenderness to palpation present (GI) (mild incisional), no guarding and not rigid Skin: General skin exam: no rashes or lesions noted Neuro: General: patient oriented x3 DS: Data Data Completed and Pending Pending studies at discharge: Pending at discharge 09/17/21 11:09 Surgical [PTH] Routine Labs on day of discharge: Laboratory Results - last 24 hr 09/19/21 05:36 WBC 11.4 H RBC 4.36 L Hgb 12.1 L Hct 37.0 L MCV 84.9 MCH 27.8 MCHC 32.7 RDW 12.1 Plt Count 247 MPV 10.4 Immature Gran % (Auto) 0.4 Neut % (Auto) 80.8 H Lymph % (Auto) 11.0 L [place] % (Auto) 6.3 Eos % (Auto) 1.1 Baso % (Auto) 0.4 Lymph # (Auto) 1.3 [place] # (Auto) 0.7 Eos # (Auto) 0.1 Baso # (Auto) 0.0 Abs Immat Gran (auto) 0.04 H Absolute Neuts (auto) 9.2 H Absolute Nucleated RBC 0.000 Nucleated RBC % (auto) 0.0 Preliminary micro results at discharge 09/16/21 23:07 Blood Culture - Preliminary Blood - Venous No growth after 48 hours. 09/16/21 23:07 Blood Culture - Preliminary Blood - Venous No growth after 48 hours. Discharge Plan Discharge Patient Disposition: Home, Self-Care Discharge Diagnosis: acute appendicitis with abscess Referrals: Jovan Johnston MD [Physician] - 1 Week Dominic Evans MD [Primary Care Provider] - 1 Week Discharge Medications: New oxycodone 5 mg tablet 5 mg PO Q4H PRN (Reason: pain (scale score 7-10)) Qty: 24 0RF amoxicillin-pot clavulanate 875-125 mg tablet 1 tab PO BID Qty: 14 0RF docusate sodium [Colace] 100 mg capsule 100 mg PO BID PRN (Reason: constipation) Qty: 30 0RF Diet: advance to usual diet Activity on Discharge: No heavy lifting Stand Alone Forms: Patient Portal Discharge page Activity Restrictions/Additional Instructions: If the incision area is tender, you may apply an ice pack for short intervals (No more than 20 minutes on, followed by at least 20 minutes off). Do not apply heat. Do not use creams, lotions, or topical antibiotics unless instructed to do so by your surgeon. These can cause infection or allergic reaction. Ok to shower. Remove clear dressings 3 days following your procedure. You have steri strips (small white cloth strips) covering your incision- these will fall off ~1 week. No heavy lifting (>10lbs) or strenuous activity! Follow up in office with Dr. Johnston in 1 week. ([phone]) Call Your Doctor If: -Your temperature exceeds 101.5? F -You experience excessive pain or swelling -You have an unexpected reaction to medication -You have excessive bleeding -You experience continued vomiting/nausea -Your incision begins to separate -Your incision shows signs of infection such as increased redness, swelling, excessive pain, drainage (light blood or clear fluid is normal) or heat Care Plan Goals: Return to baseline health and gradual return to activity following recovery period. Health Concerns: acute appendicitis Plan of Treatment: s/p lap appy with abscess drainage abx f/u in office Assessment: Doing well post op
--- NOTE | 2021-09-19 09:29 | MHC.CM.PN ---
PT MEDICALLY CLEARED FOR D/C HOME SELF-CARE W/FAMILY FOR TRANSPORT.
--- NOTE | 2021-09-19 10:46 | P.PNGS_ITS ---
Subjective Subjective Date of Service: 09/19/21 Interval history: Feels well today. Has mild pain at incision sites but comfortable. Tolerating solid food. Reports some loose stools. OOB and ambulating without difficulty. Physical Exam Vital Signs: Vital Signs: Last Vital Signs Temp 97.8 F 09/19/21 07:39 Pulse 78 09/19/21 07:39 Resp 17 09/19/21 07:39 BP 157/83 H 09/19/21 07:39 Pulse Ox 97 09/19/21 07:39 BMI result Body Mass Index 32.8 Const: General: comfortable, no acute distress and alert Orientation/consciousness: patient oriented x3 Resp: Effort & Inspection: normal respiratory effort GI: Inspection: No distended and Yes incision (dressings c/d/i) Palpation (GI): Soft to palpation, Tenderness to palpation present (GI) (very mild, incisional), no guarding and not rigid Percussion: Yes normal to percussion Skin: General skin exam: no rashes or lesions noted Neuro: General: patient oriented x3 Objective Data Active Medications Hydromorphone HCl (Hydromorphone Hcl 1 Mg/Ml Syringe) 0.5 mg IVPUSH Q3H PRN; Protocol PRN Reason: Pain, Severe (Pain Scale 7-10) Acetaminophen (Ofirmev) 1,000 mg in 100 mls @ 400 mls/hr IV Q6H [facility] Last Admin: 09/19/21 08:50 Dose: Not Given Documented by: MYA Non-Admin Reason: Physician Approved Dextrose/Lactated Ringer's (D5lr) 1,000 mls @ 80 mls/hr IVCONT .[id number] [facility] Last Infusion: 09/19/21 03:40 Dose: 80 mls/hr Documented by: DENIA Piperacillin Sod/Tazobactam (Sod 3.375 gm/ Sodium Chloride) 50 mls @ 100 mls/hr IV Q6H [facility] Last Infusion: 09/19/21 09:55 Dose: 0 mls/hr Documented by: MYA Ondansetron HCl (Ondansetron Hcl 4 Mg/2 Ml Vial) 4 mg IVPUSH QID PRN PRN Reason: Nausea Oxycodone HCl (Oxycodone Hcl Immed Release 5 Mg Tablet) 5 mg PO Q6H PRN PRN Reason: Pain, Moderate (Pain Scale 4-6 Last Admin: 09/19/21 00:47 Dose: 5 mg Documented by: DENIA Pharmacy Consult (Consult Rx Perform Med Rec) 1 each MISCELLANE ONCE PRN PRN Reason: Consult order Sodium Chloride (0.9 % Sodium Chloride Flush 3 Ml Syringe) 3 ml IVFLUSH QSHIFT [place] Last Admin: 09/19/21 08:54 Dose: Not Given Documented by: MYA Non-Admin Reason: IV Running Zolpidem Tartrate (Zolpidem Tartrate 5 Mg Tablet) 5 mg PO BEDTIME PRN PRN Reason: Insomnia Labs CBC & Chem 7: 09/19/21 05:36 09/16/21 18:28 Labs: Laboratory Results - last 24 hr 09/19/21 05:36 MCV 84.9 MCH 27.8 MCHC 32.7 RDW 12.1 Plt Count 247 MPV 10.4 Immature Gran % (Auto) 0.4 Neut % (Auto) 80.8 H Lymph % (Auto) 11.0 L [place] % (Auto) 6.3 Eos % (Auto) 1.1 Baso % (Auto) 0.4 Lymph # (Auto) 1.3 [place] # (Auto) 0.7 Eos # (Auto) 0.1 Baso # (Auto) 0.0 Abs Immat Gran (auto) 0.04 H Absolute Neuts (auto) 9.2 H Absolute Nucleated RBC 0.000 Nucleated RBC % (auto) 0.0 Microbiology Microbiology Results: Microbiology 09/16/21 23:07 Blood Culture - Preliminary Blood - Venous No growth after 48 hours. 09/16/21 23:07 Blood Culture - Preliminary Blood - Venous No growth after 48 hours. Procedures Date of Service Date of Service: 09/19/21 Progress Note: A&P Assessment and plan (1) S/P laparoscopic appendectomy: Status: Acute (2) Acute appendicitis: Status: Acute Plan 56 year old male admitted with acute appendicitis. POD #1 s/p lap appy with drainage of abscess. Had a contained abscess within the mesentery. On IV zosyn. Feels well this morning, comfortable. Doing well post op. VSS. Abd exam with appropriate post op tenderness, dressings remain clean. WBC has now normalized. He feels ready for discharge to home. D/c to home today on course of PO Augmentin. F/u in office in [address] Johnston. Time Spent With Patient Time: Total time spent is greater than 50% in coordination of care (as documented) at patient's floor/unit and/or counseling patient: Quality Stroke Does the patient have a stroke diagnosis?: No VTE Prior VTE?: No VTE Risk Level:: Surgical - high VTE Device Contraindication: N/A - Device Ordered VTE Drug Contraindication: Treatment Not Tolerated
[2021-09-19 15:14] VITALS: BP 159/85; PULSE 90; RESP 18; TEMP 37.6; O2SAT 98
[2021-09-19] MEDS: 0.9 % Sodium Chloride Flush 3 ML SYRINGE IVFLUSH (15:46)
[2021-09-20] VITALS: BP 142/82; PULSE 81; RESP 14; TEMP 36.9; O2SAT 96
[2021-09-20] MEDS: Piperacillin Sodium/Tazobactam 3.375 GM in 0.9 % Sodium Chloride 50 ML IV ×2 (00:58→09:05)
[2021-09-20] MEDS: 0.9 % Sodium Chloride Flush 3 ML SYRINGE IVFLUSH ×2 (00:58→09:09)
[2021-09-20 07:53] VITALS: BP 132/77; PULSE 80; RESP 18; TEMP 36.8; O2SAT 93
--- NOTE | 2021-09-20 15:25 | P.PNGS_ITS ---
Subjective Subjective Date of Service: 09/20/21 Interval history: No complaints, feels much improved. He is eating well without nausea or vomiting. Physical Exam Vital Signs: Vital Signs: Last Vital Signs Temp 98.2 F 09/20/21 07:53 Pulse 80 09/20/21 07:53 Resp 18 09/20/21 07:53 BP 132/77 09/20/21 07:53 Pulse Ox 93 09/20/21 07:53 BMI result Body Mass Index 32.8 Const General: comfortable, no acute distress and alert Orientation/consciousness: patient oriented x3 Resp Effort & Inspection: normal respiratory effort GI Inspection: No distended and Yes incision (dressings c/d/i) Palpation (GI): Soft to palpation, Tenderness to palpation present (GI) (very mild, incisional), no guarding and not rigid Percussion: Yes normal to percussion Skin General skin exam: no rashes or lesions noted Neuro General: patient oriented x3 Objective Data Active Medications Hydromorphone HCl (Hydromorphone Hcl 1 Mg/Ml Syringe) 0.5 mg IVPUSH Q3H PRN; Protocol PRN Reason: Pain, Severe (Pain Scale 7-10) Piperacillin Sod/Tazobactam (Sod 3.375 gm/ Sodium Chloride) 50 mls @ 100 mls/hr IV Q6H [facility] Last Admin: 09/20/21 15:21 Dose: Not Given Documented by: MYA Non-Admin Reason: Medication Discontinued Ondansetron HCl (Ondansetron Hcl 4 Mg/2 Ml Vial) 4 mg IVPUSH QID PRN PRN Reason: Nausea Oxycodone HCl (Oxycodone Hcl Immed Release 5 Mg Tablet) 5 mg PO Q6H PRN PRN Reason: Pain, Moderate (Pain Scale 4-6 Last Admin: 09/19/21 00:47 Dose: 5 mg Documented by: DENIA Pharmacy Consult (Consult Rx Perform Med Rec) 1 each MISCELLANE ONCE PRN PRN Reason: Consult order Sodium Chloride (0.9 % Sodium Chloride Flush 3 Ml Syringe) 3 ml IVFLUSH QSHIFT [facility] Last Admin: 09/20/21 09:09 Dose: 3 ml Documented by: MYA Zolpidem Tartrate (Zolpidem Tartrate 5 Mg Tablet) 5 mg PO BEDTIME PRN PRN Reason: Insomnia Labs CBC & Chem 7: 09/19/21 05:36 09/16/21 18:28 Procedures Date of Service Date of Service: 09/20/21 Progress Note: A&P Assessment and plan (1) S/P laparoscopic appendectomy: Status: Acute (2) Acute appendicitis: Status: Acute Plan 56-year-old male patient status post laparoscopic appendectomy for acute ap pendicitis with abscess. He tolerated the procedure well and is progressing nicely. He is ready for discharge to home and will remain on oral antibiotics for the next week. He will return to the office in one week for follow up examination. Time Spent With Patient Time: Total time spent is greater than 50% in coordination of care (as documented) at patient's floor/unit and/or counseling patient: No Severe Sepsis: No Severe Sepsis Quality Stroke Does the patient have a stroke diagnosis?: No VTE Prior VTE?: No VTE Risk Level:: Surgical - high VTE Device Contraindication: N/A - Device Ordered VTE Drug Contraindication: Treatment Not Tolerated
== END 2021-09-20 23:21 | disposition home or self-care (01) | DRG 340 ==
LOC: HO.ED 09-17 00:05 → HO.EDOVER 09-17 00:20 → HO.ICU 09-17 11:15 → HO.S3 09-17 17:23
PROVIDERS: Physician Assistant Surgical; Admitting Provider Surgery; Emergency Provider Student in an Organized Health Care Education/Training Program; PCP Internal Medicine; Visit Provider Surgery
PROC: 0DTJ4ZZ Resection of Appendix, Percutaneous Endoscopic Approach (ICD-10-PCS; CPT 44970; principal; 2021-09-17 09:30)
DX: K35.33 Acute appendicitis with perforation, localized peritonitis, and gangrene, with abscess (principal); K59.00 Constipation, unspecified; Z20.822 Contact with and (suspected) exposure to COVID-19; Z98.84 Bariatric surgery status; Z98.1 Arthrodesis status; Z88.5 Allergy status to narcotic agent; Z88.8 Allergy status to other drugs, medicaments and biological substances; Z79.899 Other long term (current) drug therapy
CPT/HCPCS: 36415; 74176; 80053; 81003; 83605; 83690; 85025; 87040; 87502; 87635; 88304; 96361; 96365; 96375; 99024; 99285; J0131; J1100; J1885; J2250; J2405; J2543; J3010

== ENCOUNTER → 2021-09-29 08:57 | Outpatient (BNVA) | payer MEDICARE, MEDICAID, SELFPAY | PROVIDERS: PCP Internal Medicine; Referring Provider Internal Medicine; Visit Provider Surgery | DX: Z48.815 Encounter for surgical aftercare following surgery on the digestive system (principal); Z87.19 Personal history of other diseases of the digestive system | CPT/HCPCS: 99212 ==

== ENCOUNTER 2022-01-26 15:03 | Outpatient (AMB) | payer MEDICARE, MEDICAID, SELFPAY ==
--- NOTE | 2022-01-25 16:32 | MHC.OFFVIS ---
Intake Intake Visit Reasons: Urinary tract infection Intake Note: Patient is Present for UTI. Previously seen Dr Villalobos Patient states that in the last two weeks he has been having some spasms starting from his prostate to his anus patient state that he does not feel pain but just awkward. Patient also states that his urine has been really smelly and bright yellow. Patient is concerned that he may have an infection. Post Void Residual: 63ml Polysomnography Tech Required: No Accompanied by: Self / Same As Patient Allergies morphine [MORPHINE] Allergy (Severe, Verified 05/10/23 08:58) SHORTNESS OF BREATH, resp depression adhesive tape [ADHESIVE TAPE] Allergy (Intermediate, Verified 05/10/23 08:58) RASH metformin [METFORMIN] Allergy (Intermediate, Verified 05/10/23 08:58) RASH HPI HPI Comments History of Present Illness Details Mac is a very pleasant male. He is a patient of . He is seen for the following urologic conditions - recurrent UTI - lower urinary tract symptoms Significant PVR to 400 Trial tamsulosin Lower urinary tract symptoms Prior recurrent UTI Back surgery 2008. Previously weighed 320 lb. Confined to wheelchair for 2 years PVR initial assessment 400 cc Combination tamsulosin PFSH Medical History History of benign bladder tumor Acute appendicitis Failed cervical fusion Anxiety Thoracic radiculopathy due to degenerative joint disease of spine Dyshidrotic eczema Onychomycosis Myofascial pain syndrome Postlaminectomy syndrome of lumbar region Radiculopathy, lumbar region Cervical vertebral fusion Surgical History History of laparoscopic appendectomy (09/17/21) S/P laparoscopic appendectomy History of gastric bypass History of neck surgery History of bariatric surgery History of lumbar fusion History of lumbar laminectomy Family History Mother Liver disease Father Diabetes Sister Leukemia Social History Household Members: Spouse Housing: Apartment Alcohol intake: current Alcohol intake frequency: does not drink Patient Tobacco Use Status: Never used Tobacco e-Cigarette/Vaping Use: Never Used Second Hand Smoke Exposure: No service: No Current occupational status: disabled Cognitive needs: No Hearing needs: No Vision needs: Yes Review of Systems Const Denies chills and Denies fever(s) Card Reports no additional complaints and Denies syncope Resp Denies cough GI Denies abdominal pain and Denies heartburn Reports as per HPI and Denies change in libido Neuro Denies syncope Psych Denies change in libido Endo Denies change in libido Physical Exam Const General: cooperative, healthy appearing, comfortable and no acute distress Orientation/consciousness: patient oriented x3 HEENT Face and sinus: Yes normal facial exam Mouth: moist mucous membranes Neck Neck: Yes normal visual inspection, Yes full ROM and Yes trachea midline Chest Chest palpation & inspection: normal inspection of the chest Resp Effort & Inspection: normal respiratory effort, able to speak in complete sentences and no respiratory distress GI Inspection: Yes normal to inspection Back/Spine/Pelvis Cervical Spine: normal cervical lordosis Thoracic/Lumbar Spine: thoracic and lumbar spine normal to inspection Skin General skin exam: no rashes or lesions noted Neuro General: patient oriented x3, gait normal, tone normal and moves all extremities Extrem General: Yes normal to inspection and Yes capillary refill normal Office Procedures Post Void Residual Post Residual Void Post Void Residual (PVR): 63 [id number]-[id number] Void Residual by ultrasound Results AMB Urinalysis, Automated UA Leukoctes 70 Buck/uL Last Edit by ALYSSA Oswald on 01/26/22 15:24 UA Nitrite Negative Last Edit by Annetta Engle [facility] on 01/26/22 15:24 UA Urobilinogen 0.2 mg/dL Last Edit by Annetta Engle Nela on 01/26/22 15:24 UA Protein 15 mg/dL Last Edit by Annetta Engle [facility] on 01/26/22 15:24 UA pH 6.0 Last Edit by Annetta Engle [facility] on 01/26/22 15:24 UA Blood 0 Russ/uL Last Edit by Annetta Engle Nela on 01/26/22 15:24 UA Specific [place] 1.015 Last Edit by Annetta Engle [facility] on 01/26/22 15:24 UA Ketone Negative Last Edit by ALYSSA Oswald on 01/26/22 15:24 UA Bilirubin 0 mg/dL Last Edit by ALYSSA Oswald on 01/26/22 15:24 UA Glucose 0 mg/dL Last Edit by ALYSSA Oswald on 01/26/22 15:24 Results Reviewed Results Reviewed: Laboratory Last Values Urine pH (Auto) 6.0 01/26/22 15:17 Specific [place] (Auto) 1.015 01/26/22 15:17 Urine Protein (Auto) 15 mg/dL 01/26/22 15:17 Glucose (UA)(Auto) 0 mg/dL 01/26/22 15:17 Urine Ketones (Auto) Negative 01/26/22 15:17 Urine Blood (Auto) 0 Russ/uL 01/26/22 15:17 Urine Nitrite (Auto) Negative 01/26/22 15:17 Urine Bilirubin (Auto) 0 mg/dL 01/26/22 15:17 Urine Urobilinogen (Auto) 0.2 mg/dL 01/26/22 15:17 Leukocyte Esterase (Auto) 70 Buck/uL 01/26/22 15:17 Assessment & Plan Assessment & Plan (1) Recurrent UTI: Code(s): N39.0 - Urinary tract infection, site not specified (2) BPH w urinary obs/LUTS: Code(s): N40.1 - Benign prostatic hyperplasia with lower urinary tract symptoms; N13.8 - Other obstructive and reflux uropathy Plan Plan follow-up cystoscopy Trial tamsulosin Orders: Orders AMB Urinalysis Automated 01/26/22 Z13.9 - Encounter for screening, unspecified AMB Post Void Residual by ultrasound 01/26/22 R39.15 - Urgency of urination Medications: New tamsulosin 0.4 mg PO BEDTIME 30 caps 1RF 30 days N40.1 - Benign prostatic hyperplasia with lower urinary tract symptoms, N13.8 - Other obstructive and reflux uropathy, R35.1 - Nocturia Patient Instructions: Imaging studies, laboratory and physical exam results were discussed and reviewed in detail. No major barriers to patient understanding were identified. An opportunity to ask questions regarding the treatment plan was provided. All questions were answered. The patient expressed understanding and agreement with the above treatment plan. The patient is aware they should contact our office by phone for worsening of their current condition or the appearance of new urologic symptoms. Compliance is encouraged with any medications and followup testing that is ordered. It is a privilege to participate in the urologic care of your patient. If you have any questions or concerns regarding treatment for the above conditions, or other urologic issues, please do not hesitate to contact me. The office telephone contact is [phone]. This note is constructed using voice recognition software. While every effort has been made to ensure accuracy dulser errors may have been included. Yours sincerely, Dr Jr Caldwell MD, [facility] - Urology Providers of Expert, Compassionate Care for the Genitourinary System Coding Level of Care Code New Pt Level 4 (57877) Diagnoses Recurrent UTI N39.0 BPH w urinary obs/LUTS N40.1; N13.8 CPT Codes Post Residual Void - PVR CPT Code: 95717-Cdsz Void Residual by ultrasound ([id number])
== END 2022-01-26 15:41 | disposition home or self-care (01) ==
LOC: HO.HUSH 15:03
PROVIDERS: PCP Internal Medicine; Visit Provider Urology
DX: N39.0 Urinary tract infection, site not specified (principal); N40.1 Benign prostatic hyperplasia with lower urinary tract symptoms; N13.8 Other obstructive and reflux uropathy
CPT/HCPCS: 99204; 99499

== ENCOUNTER → 2022-01-26 15:03 | Outpatient (BNVA) | payer MEDICARE, MEDICAID, SELFPAY | PROVIDERS: PCP Internal Medicine; Visit Provider Urology | DX: Z13.89 Encounter for screening for other disorder (principal) | CPT/HCPCS: 51798; 99202 ==

== ENCOUNTER 2022-02-03 23:29 | Emergency (ER) | payer MEDICARE, MEDICAID, SELFPAY ==
--- NOTE | ~2022-02-03 | US_ITS ---
EXAMINATION: US SCROTUM CLINICAL INFORMATION: Left-sided scrotal pain. COMPARISON: None TECHNIQUE: A sonogram of the scrotum was performed assessing medina-scale appearance and color Doppler flow. Spectral Doppler analysis of the arterial and venous flow were performed in the testes bilaterally. FINDINGS: RIGHT: Right testicle measures 3.9 x 2.7 x 2.9 cm, volume 16 mL. No focal testicular parenchymal lesions are visualized. Spectral Doppler analysis of the arterial and venous flow is normal in the right testis. Right epididymal head is normal in size. Small hydrocele. No varicocele is seen. Right epididymal Doppler flow is normal. LEFT: Left testicle measures 4.2 x 2.5 x 2.8 cm, volume 16 mL. No focal testicular parenchymal lesions are visualized. Spectral Doppler analysis of the arterial and venous flow is normal in the left testis. Left epididymal head is normal in size. Small hydrocele. No varicocele is seen. Left epididymal Doppler flow is normal. US/US scrotum doppler IMPRESSION: * No evidence of testicular torsion. * No epididymal orchitis. * Small bilateral hydroceles.
--- NOTE | ~2022-02-03 | US_ITS ---
EXAMINATION: US SCROTUM CLINICAL INFORMATION: Left-sided scrotal pain. COMPARISON: None TECHNIQUE: A sonogram of the scrotum was performed assessing medina-scale appearance and color Doppler flow. Spectral Doppler analysis of the arterial and venous flow were performed in the testes bilaterally. FINDINGS: RIGHT: Right testicle measures 3.9 x 2.7 x 2.9 cm, volume 16 mL. No focal testicular parenchymal lesions are visualized. Spectral Doppler analysis of the arterial and venous flow is normal in the right testis. Right epididymal head is normal in size. Small hydrocele. No varicocele is seen. Right epididymal Doppler flow is normal. LEFT: Left testicle measures 4.2 x 2.5 x 2.8 cm, volume 16 mL. No focal testicular parenchymal lesions are visualized. Spectral Doppler analysis of the arterial and venous flow is normal in the left testis. Left epididymal head is normal in size. Small hydrocele. No varicocele is seen. Left epididymal Doppler flow is normal. US/US scrotum IMPRESSION: * No evidence of testicular torsion. * No epididymal orchitis. * Small bilateral hydroceles.
[2022-02-03 23:45] VITALS: BP 131/86; PULSE 76; RESP 18; TEMP 37.3; O2SAT 98; BMI 31.9
[2022-02-04 00:12] LABS: MANUAL DIFF FLAG NO
[2022-02-04 00:16] LABS: Basophils Absolute Auto 0.1 X10*3/uL (0.0-0.2); Basophils Percent Auto 0.5 % (0-2); Eosinophils Absolute Auto 0.2 X10*3/uL (0.0-0.4); Eosinophils Percent Auto 1.6 % (0-4); Hemoglobin 14.3 g/dl (14.0-18.0); Imm Gran Abs Auto 0.04 X10*3/uL (0.00-0.03); Imm Gran Pct Auto 0.3 % (0.0-0.4); Lymphocytes Absolute Auto 2.5 X10*3/uL (1.2-4.9); Mean Corpuscular HGB Conc 32.5 g/dl (31.0-36.0); Mean Corpuscular Hemoglobin 26.8 pg (27.0-33.0); Mean Corpuscular Volume 82.6 fL (80.0-98.0); Mean Platelet Volume 10.4 fL (9.4-12.4); Monocytes Absolute Auto 1.1 X10*3/uL (0.1-1.2); Monocytes Percent Auto 8.2 % (2-11); Neutrophils Absolute Auto 9.8 x10*3/uL (2.0-8.3); Neutrophils Percent Auto 71.4 % (45-73); Platelet Count 275 X10*3/uL (160-400); Red Blood Count 5.33 X10*6/uL (4.60-5.80); Red Cell Distribution Width 12.3 % (11.0-16.0); White Blood Count 13.8 X10*3/uL (4.8-10.8)
[2022-02-04 00:18] LABS: Appearance Urine Turbid; Color Urine Yellow; Glucose Urine UA Negative (Negative); Leukocyte Esterase Urine Large (3+) (Negative); Nitrite Urine Negative (Negative); PH 5.5 (5.0-9.0); UMIC TRIGGER UACC YES; Urine Blood Small (1+) (Negative); Urine Ketones Negative (Negative); Urine Protein Negative (Neg-Trace)
[2022-02-04 00:23] LABS: Bacteria Urine Trace (None Seen); Hyaline Casts Urine 0-2 /LPF (0-2); Squamous Epithelial Cell Urine 0-2 /HPF (0-2); UACC Culture Trigger YES; WBC Urine >50 /HPF (0-5)
--- OUTSIDE RECORDS SUMMARY | 2022-02-04 00:32 | XMS_ITS | Continuity of Care Document ---
:1965 Author Organization [address], [address] [place] [address]- Care Team Providers Name Role Phone Cristina RAMIREZ, Dominic Burns Primary Care Physician [phone] Encounter [facility] [place] Date(s): 04/25/21 - 05/02/[address], [address] [place], [place] [address] Attending Physician: Ata Claudio MD Referring Physician: Cristina RAMIREZ, Dominic Burns Allergies, Adverse Reactions, Alerts Substance Reaction Severity Status morphine Active metformin rash Active Cordran Tape RASH Active Medications aspirin 81 mg oral enteric coated capsule 81, mg, 1, capsule, By Mouth, Daily, 90 capsule, 6, 6, 05/15/07 13:43:35, Print TRAE Number, [facility] [address] [place] [address], [id number], Constant Indicator Start Date: 05/15/07 Stop Date: 02/03/09 Status: Orderedbaclofen 10 mg oral tablet 10, mg, 1, tablet, By Mouth, 3 times a day, 90, tablet, 6, 6, 04/07/08 14:16:11, Print TRAE Number, [id number] [address], 68, Constant Indicator Start Date: 04/07/08 Stop Date: 11/03/08 Status: Orderedcyclobenzaprine 10 mg oral tablet 1 tablet = 10 mg, By Mouth, 3 times a day, PRN spasm, # 30 tablet, 0 Refills, Maintenance, 10/11/14 14:37:17, Tablet Start Date: 10/11/14 Status: Orderedgabapentin 800 mg oral tablet 800, mg, 1, tablet, By Mouth, 3 times a day, 90 tablet, 6, 0, 6, 04/07/08 14:16:13, Print TRAE Number, [id number] [address], 68, Constant Indicator Start Date: 04/07/08 Stop Date: 11/03/08 Status: Orderedibuprofen 800 mg oral tablet 800 mg, 1, tablet, By Mouth, 3 times a day, Refills 0, Maintenance, 04/25/21 9:03:00 EST, Partial fill upon patient request if the prescription is for a schedule II opioid drug. Start Date: 04/25/21 Status: OrderedInsulin Syringe, BD Ultra-Fine 0.5 cc 30 G x 12.7 mm (1/2in) See Instructions, 30, 6, 6, 04/10/07 19:33:28, one dose of insulin daily, ADS [facility] Start Date: 04/10/07 Status: OrderedInsulin Syringe, BD Ultra-Fine 0.5 cc 30 G x 12.7 mm (1/2in) See Instructions, 100, 6, 6, 01/10/07 13:21:42, for daily insulin administration, dmII, [address] [address], [facility] Start Date: 01/10/07 Status: OrderedInsulin Syringe, BD Ultra-Fine 1 cc 30 G x 12.7 mm (1/2in) See Instructions, 30, 5, 0, 5, 04/10/07 7:33:57, for daily injection of lantus insulin as directed, [address] [address] Start Date: 04/10/07 Status: OrderedInsulin Syringe, BD Ultra-Fine 1 cc 30 G x 12.7 mm (1/2in) See Instructions, 30, 0, 0, 03/04/07 11:14:40, for daily injection of lantus insulin as directed, [address] [address] Start Date: 03/04/07 Status: OrderedLantus 100 u/ml subcutaneous solution See Instructions, 40, mL, 6, 13, 07/11/07 15:38:17, 05/15/07 13:45:07, 110 units Subcutaneous Infusion Daily at bedtime 30 days, Print TRAE Number, [address] [place] [address], Constant Indicator Start Date: 05/15/07 Status: Orderedlisinopril 2.5 mg oral tablet 2.5, mg, 1, tablet, By Mouth, Daily, 30, tablet, 6, 6, 05/15/07 13:44:05, Print TRAE Number, [address] [address], [phone], Constant Indicator Start Date: 05/15/07 Stop Date: 12/11/07 Status: OrderedNovoLog Inj = 10 units, Subcutaneous Infusion, 0 Refills, Maintenance Start Date: 03/26/11 Status: OrderedOxycodone By Mouth, 0 Refills, Maintenance, 04/25/21 9:03:00 EST, Partial fill upon patient request if the prescription is for a schedule II opioid drug. Start Date: 04/25/21 Status: OrderedSuboxone 8 mg-2 mg sublingual tablet, disintegrating 1 tablet, Sublingual, Daily, 0 Refills, Maintenance Start Date: 03/26/11 Status: Orderedtramadol 50 mg oral tablet 2 tablet = 100 mg, By Mouth, Every 6 hours, 0 Refills, Maintenance, 10/11/14 14:36:34 Start Date: 10/11/14 Status: OrderedVicodin 500 mg-5 mg oral tablet See Instructions, PRN for pain, 1-2 tablet By Mouth Every 4-6 hours prn, # 50 tablet, 0 Refills, Maintenance, Tablet Start Date: 03/27/11 Status: Ordered Problem List Condition Effective Dates Status Health Status Informant Lumbar radiculopathy(Confirmed) Active Obese class I(Confirmed) Active Prolapsed cervical intervertebral Active disc(Confirmed) Vital Signs Most recent to oldest [Reference Range]: 1 Height 172.00 cm (04/25/21 8:59 AM) Weight 99 kg (04/25/21 8:59 AM) Body Mass Index [18.5-24.99] 33.46 *>HHI* (04/25/21 8:59 AM)
--- OUTSIDE RECORDS SUMMARY | 2022-02-04 00:32 | XMS_ITS | Continuity of Care Document ---
:1965 Author Organization [address], [address] [place] [address]- Care Team Providers Name Role Phone Cristina RAMIREZ, Dominic Burns Primary Care Physician [place] [facility] [place](s): 04/25/21 - 05/25/[address], [address] [place], [place] [address] Attending Physician: Admtr, Kurt Allergies, Adverse Reactions, Alerts Substance Reaction Severity Status morphine Active metformin rash Active Cordran Tape RASH Active Medications aspirin 81 mg oral enteric coated capsule 81, mg, 1, capsule, By Mouth, Daily, 90 capsule, 6, 6, 05/15/07 13:43:35, Print TRAE Number, [facility] [address] [place] [address], [phone], Constant Indicator Start Date: 05/15/07 Stop Date: 02/03/09 Status: Orderedbaclofen 10 mg oral tablet 10, mg, 1, tablet, By Mouth, 3 times a day, 90, tablet, 6, 6, 04/07/08 14:16:11, Print TRAE Number, [id number] [address], [address], Constant Indicator Start Date: 04/07/08 Stop [...] 6, 04/07/08 14:16:13, Print TRAE Number, [id number] [address], 68, Constant Indicator Start Date: 04/07/08 Stop [...] 19:33:28, one dose of insulin daily, [facility]S [facility] Start Date: 04/10/07 Status: OrderedInsulin Syringe, BD Ultra-Fine 0.5 cc 30 G x 12.7 mm (1/2in) See Instructions, 100, 6, 6, 01/10/07 13:21:42, for daily insulin administration, dmII, [place] [address], [facility] Start Date: 01/10/07 Status: OrderedInsulin Syringe, BD Ultra-Fine 1 cc 30 G x 12.7 mm (1/2in) See Instructions, 30, 5, 0, 5, 04/10/07 7:33:57, for daily injection of lantus insulin as directed, [address] [address] Start Date: 04/10/07 Status: OrderedInsulin Syringe, BD Ultra-Fine 1 cc 30 G x 12.7 mm (1/2in) See Instructions, 30, 0, 0, 03/04/07 11:14:40, for daily injection of lantus insulin as directed, ADS [address] [address] Start Date: 03/04/07 Status: OrderedLantus 100 u/ml subcutaneous solution See Instructions, 40, mL, 6, 13, 07/11/07 15:38:17, 05/15/07 13:45:07, 110 units Subcutaneous Infusion Daily at bedtime 30 days, Print TRAE Number, [address] [address], Constant Indicator Start Date: 05/15/07 Status: Orderedlisinopril 2.5 mg oral tablet 2.5, mg, 1, tablet, By Mouth, Daily, 30, tablet, 6, 6, 05/15/07 13:44:05, Print TRAE Number, [address] [address], [phone], Constant Indicator Start Date: 05/15/07 Stop Date: [...]
--- OUTSIDE RECORDS SUMMARY | 2022-02-04 00:32 | XMS_ITS | Continuity of Care Document ---
:1965 Author Organization [address], [address] [place] [address]- Care Team Providers Name Role Phone Cristina RAMIREZ, Dominic Burns Primary Care Physician Encounter [facility] [place] Date(s): 02/27/21 - 03/29/[address], [address] [place], [place] [address] Allergies, Adverse Reactions, Alerts Substance Reaction Severity Status metformin rash Active Cordran Tape RASH Active Medications aspirin 81 mg oral enteric coated capsule 81, mg, 1, capsule, By Mouth, Daily, 90 capsule, 6, 6, 05/15/07 13:43:35, Print TRAE Number, [facility] [address] [place] [address], [phone], Constant Indicator Start Date: 05/15/07 Stop Date: 02/03/09 Status: Orderedbaclofen 10 mg oral tablet 10, mg, 1, tablet, By Mouth, 3 times a day, 90, tablet, 6, 6, 04/07/08 14:16:11, Print TRAE Number, [facility] [place] [facility] [address] [address], [address], Constant Indicator Start Date: 04/07/08 Stop [...] 0, 6, 04/07/08 14:16:13, Print TRAE Number, [facility] [place] [facility] [address] [address], [address], Constant Indicator Start Date: 04/07/08 Stop Date: 11/03/08 Status: OrderedInsulin Syringe, BD Ultra-Fine 0.5 cc 30 G x 12.7 mm (1/2in) See Instructions, 30, 6, 6, 04/10/07 19:33:28, one dose of insulin daily, ADS [facility] Start Date: 04/10/07 Status: OrderedInsulin Syringe, BD Ultra-Fine 0.5 cc 30 G x 12.7 mm (1/2in) See Instructions, 100, 6, 6, 01/10/07 13:21:42, for daily insulin administration, dmII, [address] [address], [facility] Start Date: 01/10/07 Status: OrderedInsulin Syringe, BD Ultra-Fine 1 cc 30 G x 12.7 mm (1/2in) See Instructions, 30, 5, 0, 5, 04/10/07 7:33:57, for daily injection of lantus insulin as directed, [facility] [address] [address] Start Date: 04/10/07 Status: OrderedInsulin Syringe, BD Ultra-Fine 1 cc 30 G x 12.7 mm (1/2in) See Instructions, 30, 0, 0, 03/04/07 11:14:40, for daily injection of lantus insulin as directed, [address] [address] Start Date: 03/04/07 Status: OrderedLantus 100 u/ml subcutaneous solution See Instructions, 40, mL, 6, 13, 07/11/07 15:38:17, 05/15/07 13:45:07, 110 units Subcutaneous Infusion Daily at bedtime 30 days, Print TRAE Number, [address] [address], Constant Indicator Start Date: 05/15/07 Status: Orderedlisinopril 2.5 mg oral tablet 2.5, mg, 1, tablet, By Mouth, Daily, 30, tablet, 6, 6, 05/15/07 13:44:05, Print TRAE Number, [address] [address], [phone], Constant Indicator Start Date: 05/15/07 Stop Date: 12/11/07 Status: OrderedNovoLog Inj = 10 units, Subcutaneous Infusion, 0 Refills, Maintenance Start Date: 03/26/11 Status: OrderedSuboxone 8 mg-2 mg sublingual tablet, [...] Status Health Status Informant Lumbar radiculopathy(Confirmed) Active Prolapsed cervical intervertebral Active disc(Confirmed)
[2022-02-04 00:39] LABS: Alanine Aminotransferase 23 U/L (0-40); Albumin Level 4.5 g/dL (3.5-5.0); Alkaline Phosphatase 69 U/L (39-117); Anion Gap 17 (12-20); Aspartate Amino Transferase 19 U/L (5-37); Bilirubin Total 0.5 mg/dL (0.0-1.0); Blood Urea Nitrogen 14 mg/dL (9-16); Calcium 9.8 mg/dL (8.4-10.2); Carbon Dioxide 26 mmol/L (22-29); Chloride 103 mmol/L (96-108); Creatinine Clr Calc Pharmacy 115.3; Estimated Glomerular Filt Rate > 60; Glucose Random 118 mg/dL (60-115); Potassium 4.9 mmol/L (3.3-5.1); Sodium 141 mmol/L (135-145); Total Protein 7.9 g/dL (6.5-8.0)
[2022-02-04 01:54] VITALS: BP 117/78; PULSE 73; RESP 12; TEMP 37.1; O2SAT 100
[2022-02-04] MEDS: oxyCODONE HCl Immed Release 5 MG TABLET PO (02:39)
--- NOTE | 2022-02-04 02:53 | ED_ITS ---
HPI - General Adult General Chief complaint: General Medical Stated complaint: blood in urine, abd pain Time Seen by Provider: 02/04/22 02:28 Source: patient and family ( ) Mode of arrival: ambulatory History of Present Illness HPI narrative: 56-year-old male with known BPH states that since this morning he has had increased left testicular pain that is tender on self palpation and he reports that is swollen. Patient also noted that he began having blood in his urine but denies any associated fever, chills, nausea, vomiting. Patient sources that he does have a positive history of bladder CA in the past. Related Data Previous Rx's Medication Instructions Recorded tamsulosin 0.4 mg capsule 0.4 mg PO BEDTIME 30 days #30 caps 01/26/22 nitrofurantoin 100 mg PO Q12H 7 days #14 caps 02/04/22 monohydrate/macrocrystals 100 mg capsule (Macrobid) Allergies Allergy/AdvReac Type Severity Reaction Status Date / Time morphine [MORPHINE] Allergy Severe SHORTNESS Verified 01/25/22 16:33 OF BREATH, resp depression adhesive tape [ADHESIVE TAPE] Allergy Intermediate RASH Verified 01/25/22 16:33 metformin [METFORMIN] Allergy Intermediate RASH Verified 01/25/22 16:33 Review of Systems Review of Systems: Pertinent positives and negatives as stated in HPI 10 point review of systems is otherwise negative. [facility] Past Medical History Source: nursing notes reviewed Medical History Acute appendicitis Anxiety Cervical vertebral fusion Dyshidrotic eczema Failed cervical fusion Myofascial pain syndrome Onychomycosis Postlaminectomy syndrome of lumbar region Radiculopathy, lumbar region Thoracic radiculopathy due to degenerative joint disease of spine Surgical History History of bariatric surgery History of gastric bypass History of laparoscopic appendectomy (09/17/21) History of lumbar fusion History of lumbar laminectomy History of neck surgery S/P laparoscopic appendectomy Family History Family History Mother Liver disease Father Diabetes Sister Leukemia Social History Social History Household Members: Spouse Housing: Apartment Alcohol intake: current Alcohol intake frequency: does not drink Patient Tobacco Use Status: Never used Tobacco e-Cigarette/Vaping Use: Never Used Second Hand Smoke Exposure: No Use of substances other than those prescribed or required for medical reasons: No Advance Directives: No service: No Current occupational status: disabled Physical Exam ED Vital Signs: Vital Signs - 24 hr 02/03/22 23:45 02/04/22 01:54 02/04/22 03:22 Temperature 99.1 F 98.8 F 97.8 F Pulse Rate 76 73 84 Respiratory Rate 18 12 14 Blood Pressure 131/86 117/78 129/78 Pulse Oximetry 98 100 99 Oxygen Delivery Method Room Air Room Air Room Air BMI result Body Mass Index 31.9 VITAL SIGNS: Reviewed. GENERAL: Well developed, well nourished, in no acute distress. HEAD: Normocephalic/atraumatic EYES: PERRLA, EOMI EARS: Ext canals without abnormality NOSE: Nares patent bilateral OROPHARYNX: no oral lesions noted, posterior pharynx clear LUNGS: Normal breath sounds. No adventitious sounds or accessory muscle use. SpO2<98> CARDIOVASCULAR: Regular rate and rhythm without noted murmurs ABDOMEN: Soft, non-tender, non-distended with bowel sounds. : the left testicle is noted to be quite edematous with questionable additional mass, tenderness on palpation along the epididymis, there is no erythema or induration to the scrotum and there is no bogginess/redness / pain between the scrotum and the anus. MUSCULOSKELETAL: No tenderness, deformities, or effusions noted on gross inspec tion. EXTREMITIES: No cyanosis, clubbing or edema. SKIN: Inspection of the skin reveals no rashes NEUROLOGIC: Alert and oriented x 4. Strength and sensation to light touch were grossly intact x 4. Course Course Course Narrative: 56-year-old male with history and clinical presentation consistent with epididymitis and on review of all investigations patient has a leukocytosis and a positive urinalysis. Patient will receive antibiotics as well as a scrotal ultrasound. Review of all investigations findings most consistent with a cystitis. No evidence to suggest epididymitis or prostatitis. Patient started on a one-week course of Macrobid, instructed to increase water intake and follow-up with Dr. Caldwell. Medical Decision Making Lab Data Result diagrams: 02/04/22 00:08 02/04/22 00:08 Labs: Lab Results 02/04/22 02/04/22 02/04/22 Range/Units 00:04 00:08 00:08 WBC 13.8 H (4.8-10.8) X10*3/uL RBC 5.33 D (4.60-5.80) X10*6/uL Hgb 14.3 (14.0-18.0) g/dl Hct 44.0 (42.0-52.0) % MCV 82.6 (80.0-98.0) fL MCH 26.8 L (27.0-33.0) pg MCHC 32.5 (31.0-36.0) g/dl RDW 12.3 (11.0-16.0) % Plt Count 275 (160-400) X10*3/uL MPV 10.4 (9.4-12.4) fL Immature Gran % (Auto) 0.3 (0.0-0.4) % Neut % (Auto) 71.4 (45-73) % Lymph % (Auto) 18.0 L (20-40) % [place] % (Auto) 8.2 (2-11) % Eos % (Auto) 1.6 (0-4) % Baso % (Auto) 0.5 (0-2) % Lymph # (Auto) 2.5 (1.2-4.9) X10*3/uL [place] # (Auto) 1.1 (0.1-1.2) X10*3/uL Eos # (Auto) 0.2 (0.0-0.4) X10*3/uL Baso # (Auto) 0.1 (0.0-0.2) X10*3/uL Abs Immat Gran (auto) 0.04 H (0.00-0.03) X10*3/uL Absolute Neuts (auto) 9.8 H (2.0-8.3) x10*3/uL Absolute Nucleated RBC 0.000 (0.0-0.012) X10*3/uL Nucleated RBC % (auto) 0.0 (0.0-0.2) /100WBC Sodium 141 (135-145) mmol/L Potassium 4.9 (3.3-5.1) mmol/L Chloride 103 (96-108) mmol/L Carbon Dioxide 26 (22-29) mmol/L Anion Gap 17 (12-20) BUN 14 D (9-16) mg/dL Creatinine 0.81 (0.5-1.4) mg/dL Estim Creat Clear Calc 115.3 Estimated GFR > 60 Random Glucose 118 H (60-115) mg/dL Calcium 9.8 (8.4-10.2) mg/dL Total Bilirubin 0.5 (0.0-1.0) mg/dL AST 19 D (5-37) U/L ALT 23 (0-40) U/L Alkaline Phosphatase 69 (39-117) U/L Total Protein 7.9 (6.5-8.0) g/dL Albumin 4.5 (3.5-5.0) g/dL Urine Color Yellow Urine Appearance Turbid Urine pH 5.5 (5.0-9.0) Ur Specific [place] 1.020 (1.005-1.025) Urine Protein Negative (Neg-Trace) mg/dL Urine Glucose (UA) Negative (Negative) mg/dL Urine Ketones Negative (Negative) mg/dL Urine Blood Small (1+) H (Negative) Urine Nitrite Negative (Negative) Ur Leukocyte Esterase Large (3+) H (Negative) Urine RBC 6-10 H (0-2) /HPF Urine WBC >50 H (0-5) /HPF Ur Squamous Epith Cells 0-2 (0-2) /HPF Urine Bacteria Trace (None Seen) Hyaline Casts 0-2 (0-2) /LPF Discharge Plan Discharge Clinical Impression: Cystitis, Benign prostatic hyperplasia Patient Disposition: Home, Self-Care Instructions: Enlarged Prostate (BPH) (ED), Urinary Tract Infection in Men (ED) Additional Instructions: 1. Resume all home medications as prescribed. 2. Recommend [id number] Tylenol and ibuprofen as needed for pain contr ol. 3. Complete the entire course of antibiotics as prescribed. Follow-up with Dr. Caldwell, referral has been provided to you below. Return to the ER for worsening symptoms. Prescriptions: New nitrofurantoin monohyd/m-cryst [Macrobid] 100 mg capsule 100 mg PO Q12H 7 Days Qty: 14 0RF Rx Instructions: must administer with a meal/food No Action tamsulosin 0.4 mg capsule 0.4 mg PO BEDTIME 30 Days Qty: 30 1RF Referrals: Dominic Evans MD [Primary Care Provider] - Jr Caldwell MD [Physician] -
[2022-02-04 03:22] VITALS: BP 129/78; PULSE 84; RESP 14; TEMP 36.6; O2SAT 99
[2022-02-04] MEDS: Nitrofurantoin Monohyd/M-Cryst 100 MG CAPSULE PO (03:28)
--- NOTE | 2022-02-04 04:37 | PC.NURSE ---
Discharge instructions provided to pt and family member at the bedside. Pt adivsed to complete entire course of ab and follow up with Dr. Caldwell. Pt verbalizes understanding.
== END 2022-02-04 04:38 | disposition home or self-care (01) ==
PROVIDERS: Emergency Provider Student in an Organized Health Care Education/Training Program; PCP Internal Medicine
DX: N50.812 Left testicular pain (principal); D29.1 Benign neoplasm of prostate; R31.9 Hematuria, unspecified; R10.9 Unspecified abdominal pain; Z79.899 Other long term (current) drug therapy
CPT/HCPCS: 36415; 76870; 80053; 81001; 85025; 87086; 87088; 87186; 93975; 99284

== ENCOUNTER 2022-07-06 07:45 | Outpatient (REF) | payer MEDICARE, MEDICAID, SELFPAY ==
--- NOTE | ~2022-07-06 | CT_ITS ---
EXAMINATION: CT HEAD WITHOUT CONTRAST CLINICAL INFORMATION: Headache COMPARISON: None TECHNIQUE: Contiguous axial imaging was performed from the skull base to vertex without intravenous administration of contrast. This CT examination was performed using dose optimization techniques as appropriate, variously including the following: *Automated exposure control *Adjustment of mA and/or kV according to patient size (this includes techniques or standardized protocols for targeted exams where dose is matched to indication/reason for exam; i.e. extremities or head) *Use of iterative reconstruction technique DLP: 882 mGy-cm FINDINGS: There is no acute intra-axial, extra-axial bleed, masses or midline shift. There is no acute infarct in evolution. There is no edema. The lateral ventricles are symmetrical in size and configuration without enlargement. The [place] to white matter differentiation is maintained. Bone windows reveal no calvarial abnormality. There is no scalp soft tissue abnormality. There is a small polyp or retention cyst in right maxillary sinus. CT/CT head/brain wo IV con IMPRESSION: No acute intracranial process seen.
== END 2022-07-06 07:46 | disposition home or self-care (01) ==
LOC: HO.CT 07:45
PROVIDERS: Visit Provider Nurse Practitioner Family
DX: R51.9 Headache, unspecified (principal)
CPT/HCPCS: 70450

== ENCOUNTER 2022-07-25 09:00 | Outpatient (RCR) | payer MEDICARE, MEDICAID, SELFPAY ==
--- NOTE | 2022-07-17 09:26 | MHC.PT.EP ---
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 pt presents w/ chronic hx of cervical fusion of unknown levels. Unsure how much range of motion pt will gain as a result of presence of fusion. Impairments include pain, decreased range of motion, decreased strength, impaired functional mobility, impaired postural awareness, and altered ambulation mechanics. pt is a fair candidate for skilled PT due to age, potential remediation of impairments, typical disease/condition progression and prognosis, comorbidities, and motivation. pt would benefit from skilled PT intervention to provide a tailored strengthening and stretching exercise program, functional training, gait training, postural re-training, neuromuscular re-education, modalities as needed for pain, equipment safety demonstration. Frequency and Duration: The patient will be seen 2x/wk for 4 wks Short Term Goals: pt will be I w/ HEP to promote self-management of condition. pt will demo proper sitting posture w/ lumbar roll to promote neutral spine w/ seated ADLs. Traffic Control Supervisor Goals: pt will report decrease in headache frequency to less than 3x/wk. pt will report a statistically significant improvement in self-reported outcome measure, NDI, to promote return to PLOF. Treatment Plan: Modalities to reduce pain, spasms and effusion. Manual therapy to restore motion and function. Therapeutic exercise to improve strength and flexibility. Neuromuscular re-education for posture and balance. Therapeutic activities to return to functional activities of daily living. Electronically signed by: Chioma Nevarez PT, DPT Please sign and return to therapist. Thank you for your referral.
--- NOTE | 2022-08-07 08:25 | MHC.PT.DC ---
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 Per [facility] Core Therapy attendance policy, he is being discharged for non-compliance. He attended his initial evaluation and one treatment session. He was given a home exercise program, re-educated on purpose/potential benefits of TENS (has his own unit), and the use of heat to promote muscle relaxation. Electronically signed by: Chioma Nevarez PT, DPT Please sign and return to therapist. Thank you for your referral.
== END 2022-08-07 08:33 | disposition home or self-care (01) ==
LOC: HO.PT 09:00
PROVIDERS: PCP Internal Medicine; Visit Provider Nurse Practitioner Family
DX: R51.9 Headache, unspecified (principal); M96.0 Pseudarthrosis after fusion or arthrodesis
CPT/HCPCS: 97014; 97110; 97140; 97162

== ENCOUNTER 2023-01-14 08:31 | Outpatient (REF) | payer MEDICARE, MEDICAID, SELFPAY ==
[2023-01-14 09:43] LABS: Hematocrit 47.5 % (42.0-52.0); Hemoglobin 15.3 g/dl (14.0-18.0); Mean Corpuscular HGB Conc 32.2 g/dl (31.0-36.0); Mean Corpuscular Hemoglobin 27.1 pg (27.0-33.0); Mean Corpuscular Volume 84.1 fL (80.0-98.0); Mean Platelet Volume 11.3 fL (9.4-12.4); Platelet Count 234 X10*3/uL (160-400); Red Blood Count 5.65 X10*6/uL (4.60-5.80); White Blood Count 6.1 X10*3/uL (4.8-10.8)
[2023-01-14 10:37] LABS: Prostate Specific Antigen Scr 0.61 ng/mL (<0.05-4.0)
[2023-01-14 11:47] LABS: Alanine Aminotransferase 25 U/L (0-40); Albumin Level 4.2 g/dL (3.5-5.0); Alkaline Phosphatase 59 U/L (39-117); Anion Gap 13 (12-20); Aspartate Amino Transferase 19 U/L (5-37); Bilirubin Direct 0.2 mg/dL (0.0-0.5); Bilirubin Total 0.5 mg/dL (0.0-1.0); Blood Urea Nitrogen 12 mg/dL (9-16); Carbon Dioxide 28 mmol/L (22-29); Chloride 103 mmol/L (96-108); Cholesterol 171 mg/dL (<200); Estimated Glomerular Filt Rate > 60; Glucose Random 140 mg/dL (60-115); HDL Cholesterol 36 mg/dL (>40); LDL Cholesterol Calculated 111 mg/dL (<100); Potassium 4.6 mmol/L (3.3-5.1); Sodium 139 mmol/L (135-145); Total Protein 7.5 g/dL (6.5-8.0); Triglycerides 124 mg/dL (<150)
[2023-01-14 12:01] LABS: Thyroid Stimulating Hormone 1.61 uIU/mL (0.32-4.0)
== END 2023-01-14 08:32 | disposition home or self-care (01) ==
LOC: HO.LAB 08:31
PROVIDERS: PCP Internal Medicine; Visit Provider Internal Medicine
DX: N40.1 Benign prostatic hyperplasia with lower urinary tract symptoms (principal); N13.8 Other obstructive and reflux uropathy; Z12.5 Encounter for screening for malignant neoplasm of prostate; E78.00 Pure hypercholesterolemia, unspecified
CPT/HCPCS: 36415; 80048; 80061; 80076; 84153; 84443; 85027

== ENCOUNTER 2023-01-25 08:43 | Outpatient (AMB) | payer MEDICARE, MEDICAID, SELFPAY ==
--- NOTE | 2023-01-25 08:53 | MHC.OFFVIS ---
Intake Intake Visit Reasons: BPH Intake Note: Patient presents today for a follow-up on BPH Meds - none Allergies - morphine Pharmacy - [facility] PVR - >411mL Nuclear Medical Technologist Required: No Accompanied by: Self / Same As Patient Allergies morphine [MORPHINE] Allergy (Severe, Verified 01/25/23 09:02) SHORTNESS OF BREATH, resp depression adhesive tape [ADHESIVE TAPE] Allergy (Intermediate, Verified 01/25/23 09:02) RASH metformin [METFORMIN] Allergy (Intermediate, Verified 01/25/23 09:02) RASH HPI HPI Comments History of Present Illness Details Mac is a very pleasant male. He is a patient of . He is seen for the following urologic conditions - recurrent UTI - lower urinary tract symptoms High residual 400 cc Problems with erections Trial combination tamsulosin and tadalafil for bladder emptying Lower urinary tract symptoms Prior recurrent UTI Back surgery 2008. Previously weighed 320 lb. Confined to wheelchair for 2 years PSA 01/26 0.6 PFSH Medical History Acute appendicitis Anxiety Cervical vertebral fusion Dyshidrotic eczema Failed cervical fusion History of benign bladder tumor Myofascial pain syndrome Onychomycosis Postlaminectomy syndrome of lumbar region Radiculopathy, lumbar region Thoracic radiculopathy due to degenerative joint disease of spine Surgical History History of bariatric surgery History of gastric bypass History of laparoscopic appendectomy (09/17/21) History of lumbar fusion History of lumbar laminectomy History of neck surgery S/P laparoscopic appendectomy Family History Mother Liver disease Father Diabetes Sister Leukemia Social History Household Members: Spouse Housing: Apartment Alcohol intake: current Alcohol intake frequency: does not drink Patient Tobacco Use Status: Never used Tobacco e-Cigarette/Vaping Use: Never Used Second Hand Smoke Exposure: No service: No Current occupational status: disabled Cognitive needs: No Hearing needs: No Vision needs: Yes Review of Systems Const Denies chills and Denies fever(s) Card Reports no additional complaints and Denies syncope Resp Denies cough GI Denies abdominal pain and Denies heartburn Reports as per HPI and Denies change in libido Neuro Denies syncope Psych Denies change in libido Endo Denies change in libido Physical Exam Const General: cooperative, healthy appearing, comfortable and no acute distress Orientation/consciousness: patient oriented x3 HEENT Face and sinus: Yes normal facial exam Mouth: moist mucous membranes Neck Neck: Yes normal visual inspection, Yes full ROM and Yes trachea midline Chest Chest palpation & inspection: normal inspection of the chest Resp Effort & Inspection: normal respiratory effort, able to speak in complete sentences and no respiratory distress GI Inspection: Yes normal to inspection Back/Spine/Pelvis Cervical Spine: normal cervical lordosis Thoracic/Lumbar Spine: thoracic and lumbar spine normal to inspection Skin General skin exam: no rashes or lesions noted Neuro General: patient oriented x3, gait normal, tone normal and moves all extremities Extrem General: Yes normal to inspection and Yes capillary refill normal Office Procedures Post Void Residual Post Residual Void Post Void Residual (PVR): 411 [id number]-[id number] Void Residual by ultrasound Results AMB Urinalysis, Automated UA Leukoctes 0 Buck/uL Last Edit by ALYSSA Funez on 01/25/23 09:04 UA Nitrite Negative Last Edit by ALYSSA Funez on 01/25/23 09:04 UA Urobilinogen 0 mg/dL Last Edit by ALYSSA Funez on 01/25/23 09:04 UA Protein 0 mg/dL Last Edit by ALYSSA Funez on 01/25/23 09:04 UA pH 6.0 Last Edit by ALYSSA Funez on 01/25/23 09:04 UA Blood 0 Russ/uL Last Edit by ALYSSA Funez on 01/25/23 09:04 UA Specific [place] 1.015 Last Edit by ALYSSA Funez on 01/25/23 09:04 UA Ketone Negative Last Edit by ALYSSA Funez on 01/25/23 09:04 UA Bilirubin 0 mg/dL Last Edit by ALYSSA Funez on 01/25/23 09:04 UA Glucose 0 mg/dL Last Edit by ALYSSA Funez on 01/25/23 09:04 Results Reviewed Results Reviewed: Laboratory Last Values Urine pH (Auto) 6.0 01/25/23 09:03 Specific [place] (Auto) 1.015 01/25/23 09:03 Urine Protein (Auto) 0 mg/dL 01/25/23 09:03 Glucose (UA)(Auto) 0 mg/dL 01/25/23 09:03 Urine Ketones (Auto) Negative 01/25/23 09:03 Urine Blood (Auto) 0 Russ/uL 01/25/23 09:03 Urine Nitrite (Auto) Negative 01/25/23 09:03 Urine Bilirubin (Auto) 0 mg/dL 01/25/23 09:03 Urine Urobilinogen (Auto) 0 mg/dL 01/25/23 09:03 Leukocyte Esterase (Auto) 0 Buck/uL 01/25/23 09:03 Assessment & Plan Assessment & Plan (1) Urinary retention with incomplete bladder emptying: Code(s): R33.9 - Retention of urine, unspecified (2) Recurrent UTI: Code(s): N39.0 - Urinary tract infection, site not specified (3) BPH w urinary obs/LUTS: Code(s): N40.1 - Benign prostatic hyperplasia with lower urinary tract symptoms; N13.8 - Other obstructive and reflux uropathy Plan Three month follow-up Orders: Orders AMB Urinalysis Automated Today Z13.9 - Encounter for screening, unspecified AMB Post Void Residual by ultrasound Today N39.8 - Other specified disorders of urinary system Medications: New tadalafil 5 mg PO DAILY 90 tabs 0RF sexual activity 90 days R33.9 - Retention of urine, unspecified tamsulosin 0.4 mg PO BEDTIME 90 caps 1RF 90 days N13.8 - Other obstructive and reflux uropathy, N40.1 - Benign prostatic hyperplasia with lower urinary tract symptoms, R33.9 - Retention of urine, unspecified Patient Instructions: Imaging studies, laboratory and physical exam results were discussed and reviewed in detail. No major barriers to patient understanding were identified. An opportunity to ask questions regarding the treatment plan was provided. All questions were answered. The patient expressed understanding and agreement with the above treatment plan. The patient is aware they should contact our office by phone for worsening of their current condition or the appearance of new urologic symptoms. Compliance is encouraged with any medications and followup testing that is ordered. It is a privilege to participate in the urologic care of your patient. If you have any questions or concerns regarding treatment for the above conditions, or other urologic issues, please do not hesitate to contact me. The office telephone contact is [phone]. This note is constructed using voice recognition software. While every effort has been made to ensure accuracy antisubmarine weapons officer errors may have been included. Yours sincerely, Dr Jr Caldwell MD, KAREN [facility] - Urology Providers of Expert, Compassionate Care for the Genitourinary System Coding Level of Care Code Est Pt Level 4 (15969) Diagnoses Urinary retention with incomplete bladder emptying R33.9 Recurrent UTI N39.0 BPH w urinary obs/LUTS N40.1; N13.8 CPT Codes Post Residual Void - PVR CPT Code: 23340-Kezd Void Residual by ultrasound ([id number])
== END 2023-01-25 09:09 | disposition home or self-care (01) ==
PROVIDERS: PCP Internal Medicine; Visit Provider Urology
DX: R33.9 Retention of urine, unspecified (principal); N39.0 Urinary tract infection, site not specified; N40.1 Benign prostatic hyperplasia with lower urinary tract symptoms; N13.8 Other obstructive and reflux uropathy; Z13.9 Encounter for screening, unspecified
CPT/HCPCS: 99214

== ENCOUNTER → 2023-01-25 08:43 | Outpatient (BNVA) | payer MEDICARE, MEDICAID, SELFPAY | PROVIDERS: Visit Provider Urology | DX: N40.1 Benign prostatic hyperplasia with lower urinary tract symptoms (principal); N13.8 Other obstructive and reflux uropathy; R33.8 Other retention of urine; N39.0 Urinary tract infection, site not specified | CPT/HCPCS: 51798; 81003; 99212 ==

== ENCOUNTER 2023-03-14 08:04 | Outpatient (AMB) | payer MEDICARE, MEDICAID, SELFPAY ==
[2023-03-14 08:18] VITALS: BP 116/70; PULSE 71; O2SAT 98; BMI 33.3
--- NOTE | 2023-03-14 08:18 | MHC.PC.OV ---
Vital Signs 03/14/23 08:18 Height 5 ft 8 in Weight 219 lb BMI 33.3 BP 116/70 Blood Pressure Location Lt brachial Position Sitting Pulse 71 Pulse Source Pulse Oximeter Pulse Oximetry (%) 98 Oxygen Delivery Method Room Air Intake Visit Reasons: 6mth f/u Allergies morphine [MORPHINE] Allergy (Severe, Verified 03/14/23 08:18) SHORTNESS OF BREATH, resp depression adhesive tape [ADHESIVE TAPE] Allergy (Intermediate, Verified 03/14/23 08:18) RASH metformin [METFORMIN] Allergy (Intermediate, Verified 03/14/23 08:18) RASH Tobacco use date assessed: 06/13/22 Dental Screening Dental Screen Date: 03/14/23 Did you have a dental visit in the last 12 months?: Yes Did you have a dental problem in the last 6 months where you did not have access to dental care?: No Was dental information given to patient?: Patient has dentist HPI 6mth f/u HPI Details 57-year-old male presents to the office to discuss his chronic medical conditions. Patient reports he continues to have neck and back pain. Completed physical therapy for the neck pain and some of his symptoms improve. Continues to have lower back pain. The pain is constant and dull. Patient is disabled due to neck and back surgery in early 1999. He is not working. He is taking care of his who has recently been diagnosed with Alzheimer's disease. Patient is feeling overwhelmed. [facility] Medical History (Updated 03/14/23 @ 09:02 by Dominic Evans MD) History of benign bladder tumor Acute appendicitis Failed cervical fusion Anxiety Thoracic radiculopathy due to degenerative joint disease of spine Dyshidrotic eczema Onychomycosis Myofascial pain syndrome Postlaminectomy syndrome of lumbar region Radiculopathy, lumbar region Cervical vertebral fusion Surgical History History of laparoscopic appendectomy (09/17/21) S/P laparoscopic appendectomy History of gastric bypass History of neck surgery History of bariatric surgery History of lumbar fusion History of lumbar laminectomy Family History Mother Liver disease Father Diabetes Sister Leukemia Social History Household Members: Spouse Housing: Apartment Alcohol intake: current Alcohol intake frequency: does not drink Patient Tobacco Use Status: Never used Tobacco e-Cigarette/Vaping Use: Never Used Second Hand Smoke Exposure: No service: No Current occupational status: disabled Cognitive needs: No Hearing needs: No Vision needs: Yes Questionnaire PHQ-9 Over the last 2 weeks, how often have you been bothered by any of the following problems? 1. Little interest or pleasure in doing things: not at all 2. Feeling down, depressed, or hopeless: not at all 3. Trouble falling or staying asleep, or sleeping too much: not at all 4. Feeling tired or having little energy: not at all 5. Poor appetite or overeating: not at all 6. Feeling bad about yourself - or that you are a failure or have let yourself or your family down: not at all 7. Trouble concentrating on things, such as reading the newspaper or watching television: not at all 8. Moving or speaking so slowly that other people could have noticed. Or the opposite - being so fidgety or restless that you have been moving around a lot more than usual: not at all 9. Thoughts that you would be better off or of hurting yourself in some way: not at all Total score: 0 Depression Screening Interpretation: Negative Depression Screening Done: Yes 10694 - PHQ-9 Billing: Yes Source: Developed by Drs. Deon Subramanian, Criselda Rdz, Francisco J Farooq and colleagues, with an educational nasima from [employer]. Thrive Questionnaire Date Thrive assessed: 06/13/22 Currently or been in a relationship where the following occur: no concerns reported AUDIT C Alcohol Use Questionnaire (AUDIT-C) 1. How often do you have a drink containing alcohol?: Never 3. How often do you have six or more drinks on one occasion?: Never Total Score: 0 Score Reviewed/Action Taken: No DANK-7 AMB Questionnaire DANK-7 Date DANK - 7 assessed: 06/13/22 Source: Developed by Drs. Deon Subramanian, Criselda Rdz, Francisco J Farooq and colleagues, with an educational nasima from [employer]. Physical exam (Primary Care) Vital Signs: Last Vital Signs Pulse 71 03/14/23 08:18 BP 116/70 11/09/23 08:18 Pulse Ox 98 03/14/23 08:18 Oxygen Delivery Method Room Air 03/14/23 08:18 Care Plan Goal for BP management: Blood pressure is in range. Continue current medications. BMI result Body Mass Index 33.3 Tobacco/Smoking Status: Tobacco use Status Tobacco use date assessed 06/13/22 03/14/23 08:22 Patient Tobacco Use Status Never used Tobacco 03/14/23 08:22 e-Cigarette/Vaping Use Never Used 03/14/23 08:22 PHQ-9: PHQ-9 Score PHQ-9: Total score 0 03/14/23 08:22 Depression Screening Interpretation: Negative Thrive Assessment: Date of Thrive Assessment Date Thrive assessed 06/13/22 03/14/23 08:22 Currently or been in a relationship where the following occur: no concerns reported Advance Care Planning discussion: Exists, not on file Date of discussion: 03/14/23 Who was present: Patient Forms completed: Health Care Proxy and MOLST Actual minutes spent: 5 Const General: cooperative and healthy appearing Nutritional Appearance: well nourished Orientation/consciousness: patient oriented x3 Limitations: no limitations HENMT Head: Yes normal to inspection Eyes General: appearance normal, both eyes and all related structures Neck Neck: Yes normal visual inspection Chest Chest palpation & inspection: normal palpation of entire chest wall Resp Effort & Inspection: normal respiratory effort Neuro General: patient oriented x3 Office Procedures Flu Questionnaire Does the patient have a severe egg allergy?: No Does the patient have severe life threatening allergies?: No Does the patient have a fever or illness today?: No Has the patient ever had Guillain-[place] Syndrome?: No Has the patient ever had any past reaction to a flu shot?: No Immunizations flu vacc [id number] 6mos up(PF) 60 mcg(15 mcgx4)/0.5 mL IM syringe Performing Provider: Dominic Evans MD Performing Location: [facility] Administered by: ALYSSA Osorio on 03/14/23 08:49 Dose Route Admin Location Dispensed Lot Number Expiration Date NDC Americanization Teacher 0.5 mL IM Left Deltoid 0.5 mL [id number] 11/03/23 96379-650-06 [employer] VIS Given Date VIS Provided VIS Publication Date 03/14/23 Single Vaccine 20 Eligibility Eligibility Date Funding Source Not [facility] Eligible 03/14/23 Private Assessment and Plan Assessment & Plan (1) Thoracic radiculopathy due to degenerative joint disease of spine: Code(s): M47.24 - Other spondylosis with radiculopathy, thoracic region Plan: Cyclobenzaprine added to the regimen. Stretching exercises suggested. (2) Anxiety: Code(s): F41.9 - Anxiety disorder, unspecified Plan: Patient reports that his symptoms are mostly sadness due to his 's new diagnosis. I have requested child protective services social worker help for him. Orders: Orders Influenza [id number] Immunization Today Z23 - Encounter for immunization Medications: New fluticasone propionate 50 mcg/actuation (Flonase Allergy Relief) administer into each nostril 1 spray intranasal DAILY 9.9 mL 1RF Changed From cyclobenzaprine 5 mg PO BID PRN 14 tabs 0RF muscle spasm R51.9 - Headache, unspecified To cyclobenzaprine 5 mg PO BEDTIME PRN 60 tabs 0RF muscle spasm R51.9 - Headache, unspecified Coding Level of Care Code Est Pt Level 4 (19276) Diagnoses Thoracic radiculopathy due to degenerative joint disease of spine M47.24 Anxiety F41.9 Additional Codes Vital Signs *Quality* - Advance Care Planning discussion: Exists, not on file ([id number])
== END 2023-03-14 08:51 | disposition home or self-care (01) ==
PROVIDERS: Visit Provider Internal Medicine
DX: M47.24 Other spondylosis with radiculopathy, thoracic region (principal); F41.9 Anxiety disorder, unspecified; Z23 Encounter for immunization; Z00.00 Encounter for general adult medical examination without abnormal findings
CPT/HCPCS: 1123F; 90471; 90686; 99214

== ENCOUNTER 2023-05-10 08:53 | Outpatient (AMB) | payer MEDICARE, MEDICAID, SELFPAY ==
--- NOTE | 2023-05-10 08:55 | MHC.OFFVIS ---
Intake Intake Visit Reasons: 3m/PVR Intake Note: Patient is Present for Follow Up Urology Medication: Tadalafil, Tamsulosin, Antibiotic Allergies: None Blood Thinners: None PVR: 40 Allergies morphine [MORPHINE] Allergy (Severe, Verified 05/10/23 08:58) SHORTNESS OF BREATH, resp depression adhesive tape [ADHESIVE TAPE] Allergy (Intermediate, Verified 05/10/23 08:58) RASH metformin [METFORMIN] Allergy (Intermediate, Verified 05/10/23 08:58) RASH Medication List - Last Reconciled 05/10/23 by Jr Caldwell MD cyclobenzaprine 5 mg PO BEDTIME PRN fluticasone propionate 50 mcg/actuation (Flonase Allergy Relief) 1 spray intranasal DAILY tadalafil 5 mg PO DAILY 90 days tamsulosin 0.4 mg PO BEDTIME 90 days HPI HPI Comments History of Present Illness Details Mac is a very pleasant male. He is a patient of . He is seen for the following urologic conditions - recurrent UTI - lower urinary tract symptoms Significant decrease in PVR to 40 cc Wants to continue with combination therapy Lower urinary tract symptoms Prior recurrent UTI Back surgery 2008. Previously weighed 320 lb. Confined to wheelchair for 2 years PSA 01/26 0.6 PVR initial assessment 400 cc Combination tamsulosin and tadalafil for bladder emptying [facility] Medical History History of benign bladder tumor Acute appendicitis Failed cervical fusion Anxiety Thoracic radiculopathy due to degenerative joint disease of spine Dyshidrotic eczema Onychomycosis Myofascial pain syndrome Postlaminectomy syndrome of lumbar region Radiculopathy, lumbar region Cervical vertebral fusion Surgical History History of laparoscopic appendectomy (09/17/21) S/P laparoscopic appendectomy History of gastric bypass History of neck surgery History of bariatric surgery History of lumbar fusion History of lumbar laminectomy Family History Mother Liver disease Father Diabetes Sister Leukemia Social History Household Members: Spouse Housing: Apartment Alcohol intake: current Alcohol intake frequency: does not drink Patient Tobacco Use Status: Never used Tobacco e-Cigarette/Vaping Use: Never Used Second Hand Smoke Exposure: No service: No Current occupational status: disabled Cognitive needs: No Hearing needs: No Vision needs: Yes Review of Systems Const Denies chills and Denies fever(s) Card Reports no additional complaints and Denies syncope Resp Denies cough GI Denies abdominal pain and Denies heartburn Reports as per HPI and Denies change in libido Neuro Denies syncope Psych Denies change in libido Endo Denies change in libido Physical Exam Const General: cooperative, healthy appearing, comfortable and no acute distress Orientation/consciousness: patient oriented x3 HEENT Face and sinus: Yes normal facial exam Mouth: moist mucous membranes Neck Neck: Yes normal visual inspection, Yes full ROM and Yes trachea midline Chest Chest palpation & inspection: normal inspection of the chest Resp Effort & Inspection: normal respiratory effort, able to speak in complete sentences and no respiratory distress GI Inspection: Yes normal to inspection Back/Spine/Pelvis Cervical Spine: normal cervical lordosis Thoracic/Lumbar Spine: thoracic and lumbar spine normal to inspection Skin General skin exam: no rashes or lesions noted Neuro General: patient oriented x3, gait normal, tone normal and moves all extremities Extrem General: Yes normal to inspection and Yes capillary refill normal Office Procedures Post Void Residual Post Residual Void Post Void Residual (PVR): 40 [id number] Void Residual by ultrasound Results AMB Urinalysis, Automated UA Leukoctes 0 Buck/uL Last Edit by ALYSSA Oswald on 05/10/23 09:03 UA Nitrite Negative Last Edit by ALYSSA Oswald on 05/10/23 09:03 UA Urobilinogen 0.2 mg/dL Last Edit by ALYSSA Oswald on 05/10/23 09:03 UA Protein 0 mg/dL Last Edit by ALYSSA Oswald on 05/10/23 09:03 UA pH 6.0 Last Edit by ALYSSA Oswald on 05/10/23 09:03 UA Blood 0 Russ/uL Last Edit by ALYSSA Oswald on 05/10/23 09:03 UA Specific [place] 1.010 Last Edit by ALYSSA Oswald on 05/10/23 09:03 UA Ketone Negative Last Edit by ALYSSA Oswald on 05/10/23 09:03 UA Bilirubin 0 mg/dL Last Edit by ALYSSA Oswald on 05/10/23 09:03 UA Glucose 0 mg/dL Last Edit by ALYSSA Oswald on 05/10/23 09:03 Results Reviewed Results Reviewed: Laboratory Last Values Urine pH (Auto) 6.0 05/10/23 08:59 Specific [place] (Auto) 1.010 05/10/23 08:59 Urine Protein (Auto) 0 mg/dL 05/10/23 08:59 Glucose (UA)(Auto) 0 mg/dL 05/10/23 08:59 Urine Ketones (Auto) Negative 05/10/23 08:59 Urine Blood (Auto) 0 Russ/uL 05/10/23 08:59 Urine Nitrite (Auto) Negative 05/10/23 08:59 Urine Bilirubin (Auto) 0 mg/dL 05/10/23 08:59 Urine Urobilinogen (Auto) 0.2 mg/dL 05/10/23 08:59 Leukocyte Esterase (Auto) 0 Buck/uL 05/10/23 08:59 Assessment & Plan Assessment & Plan (1) Urinary retention with incomplete bladder emptying: Code(s): R33.9 - Retention of urine, unspecified Plan Six month follow-up Orders: Orders AMB Post Void Residual by ultrasound Today N13.8 - Other obstructive and reflux uropathy, N40.1 - Benign prostatic hyperplasia with lower urinary tract symptoms AMB Urinalysis Automated Today N39.0 - Urinary tract infection, site not specified, Z13.9 - Encounter for screening, unspecified Patient Instructions: Imaging studies, laboratory and physical exam results were discussed and reviewed in detail. No major barriers to patient understanding were identified. An opportunity to ask questions regarding the treatment plan was provided. All questions were answered. The patient expressed understanding and agreement with the above treatment plan. The patient is aware they should contact our office by phone for worsening of their current condition or the appearance of new urologic symptoms. Compliance is encouraged with any medications and followup testing that is ordered. It is a privilege to participate in the urologic care of your patient. If you have any questions or concerns regarding treatment for the above conditions, or other urologic issues, please do not hesitate to contact me. The office telephone contact is [phone]. This note is constructed using voice recognition software. While every effort has been made to ensure accuracy nursery technician errors may have been included. Yours sincerely, Dr Jr Caldwell MD, [facility] - Urology Providers of Expert, Compassionate Care for the Genitourinary System Coding Level of Care Code Est Pt Level 3 (16963) Diagnoses Urinary retention with incomplete bladder emptying R33.9 CPT Codes Post Residual Void - PVR CPT Code: 49743-Qjck Void Residual by ultrasound ([id number])
== END 2023-05-10 09:14 | disposition home or self-care (01) ==
PROVIDERS: PCP Internal Medicine; Visit Provider Urology
DX: Z13.9 Encounter for screening, unspecified (principal); N39.0 Urinary tract infection, site not specified; R33.9 Retention of urine, unspecified
CPT/HCPCS: 99213

== ENCOUNTER → 2023-05-10 08:53 | Outpatient (BNVA) | payer MEDICARE, MEDICAID, SELFPAY | PROVIDERS: PCP Internal Medicine; Visit Provider Urology | DX: R33.9 Retention of urine, unspecified (principal) | CPT/HCPCS: 51798; 81003; 99212 ==

== ENCOUNTER 2023-10-02 10:59 | Day surgery (SDC) | payer MEDICARE, MEDICAID, SELFPAY ==
[2023-10-02 11:28] VITALS: BMI 30.4
[2023-10-02 11:43] VITALS: BP 146/77; PULSE 63; RESP 16; TEMP 36.4; O2SAT 100
[2023-10-02] MEDS: Lactated Ringers 1,000 ML 80 ML IVCONT (11:44)
--- NOTE | 2023-10-02 12:28 | HO.ANESPROP2 ---
FORMERLY [facility], LATER [facility] Active Problems Active Problems: All Active Problems Anxiety (Acute) Urinary retention with incomplete bladder emptying (Acute) Headache (Acute) History of benign bladder tumor (Acute) Recurrent UTI (Acute) BPH w urinary obs/LUTS (Acute) History of laparoscopic appendectomy (Acute 09/17/21) Failed cervical fusion (Acute) Claustrophobia (Acute) Thoracic radiculopathy due to degenerative joint disease of spine (Acute) Annual physical exam (Acute) Dyshidrotic eczema (Acute) Onychomycosis (Acute) Hyperglycemia (Acute) Myofascial pain syndrome (Acute) Postlaminectomy syndrome of lumbar region (Acute) History of lumbar fusion (Acute) Radiculopathy, lumbar region (Acute) Past Medical History Medical History History of benign bladder tumor Acute appendicitis Failed cervical fusion Anxiety Thoracic radiculopathy due to degenerative joint disease of spine Dyshidrotic eczema Onychomycosis Myofascial pain syndrome Postlaminectomy syndrome of lumbar region Radiculopathy, lumbar region Cervical vertebral fusion Functional capacity: independent ambulation Family History Family History Mother Liver disease Father Diabetes Sister Leukemia Surgical History Surgical History History of laparoscopic appendectomy (09/17/21) S/P laparoscopic appendectomy History of gastric bypass History of neck surgery History of bariatric surgery History of lumbar fusion History of lumbar laminectomy Social History Social History Household Members: Spouse Housing: Apartment Alcohol intake: current Alcohol intake frequency: does not drink Patient Tobacco Use Status: Never used Tobacco e-Cigarette/Vaping Use: Never Used Second Hand Smoke Exposure: No Use of substances other than those prescribed or required for medical reasons: No Are you DNR?: No Advance Directives: No Advance Directives Information Provided: Yes service: No Current occupational status: disabled Cognitive needs: No Hearing needs: No Vision needs: Yes Meds Allergies Allergy/AdvReac Type Severity Reaction Status Date / Time morphine [MORPHINE] Allergy Severe SHORTNESS Verified 10/02/23 11:32 OF BREATH, resp depression adhesive tape [ADHESIVE TAPE] Allergy Intermediate RASH Verified 10/02/23 11:32 metformin [METFORMIN] Allergy Intermediate RASH Verified 10/02/23 11:32 Active Medications: Current Medications Lactated Ringer's (Lr) 1,000 mls @ 80 mls/hr IVCONT .[id number] CLOVER Last Admin: 10/02/23 11:44 Dose: 80 mls/hr Exam Height,Weight and Vital Signs: Height 5 ft 8 in Weight 90.718 kg Last Vital Signs Temp 97.5 F 10/02/23 11:43 Pulse 63 10/02/23 11:43 Resp 16 10/02/23 11:43 BP 146/77 H 10/02/23 11:43 Pulse Ox 100 10/02/23 11:43 O2 Del Method Room Air 10/02/23 11:43 Airway Mallampati Class: III Neck ROM: Full Denture: Upper Heart: RRR Lungs: CTA Assessment and Plan Assessment Anesthesia Assessment: Anesthesia Plan Discussed Final Anesthetic Review ASA Class: II and III Final Preanesthetic Review: Meds/Allgs Chart Reviewed, Consent Obtained/Reviewed and Anes Risks/Benef Reviewed Procedure Risk: Low Anesthetic Plan Anesthetic Plan: MAC: Disposition: Standard PACU
--- NOTE | 2023-10-02 12:31 | PM.OP ---
Brief Operative Note Date of Service: 10/02/23 Pre-op diagnosis: Left upper quadrant pain, s/p sleeve gastrectomy Post-op diagnosis: same Procedure: PROCEDURE DATE: 10/02/2023 PREOPERATIVE DIAGNOSIS: left upper quadrant pain, s/p gastric bypass POSTOPERATIVE DIAGNOSIS: ?Same as above. 1) small diaphragmatic hernia, 2) mild inflammation at the GJ anastomosis PROCEDURE: Tephwfia-[id number] with biopsies Surgeon: ?Mikel Vázquez M.D.. Ph.D. Oil Pipeline Dispatcher: ?None ? Anesthesia: IV sedation Estimated blood loss: ?Minimal FINDINGS AND PROCEDURE: ? OPERATIVE INDICATIONS: ?The patient is a 58 year old male known to me who underwent a laparoscopic revision of gastric band to gastric bypass . The patient had excellent weight loss. Recently he has been complaining of left upper quadrant pain. The patient was started on a liquid high protein diet and the pain has improved.? Based on this information I recommended an upper endoscopy to evaluate the patient's symptoms.? Risks and complications of the surgery were discussed with the patient in advance particularly the possibility of perforation or bleeding that may require surgical intervention. The patient understood the risks and was in agreement with the plan. ? PROCEDURE: After informed consent was obtained by the patient, the patient was ?transferred to the Operating Room and was placed in the supine position.? After successful induction of IV sedation, a mouth block was placed and the patient was placed in the left lateral decubitus position. An upper endoscopy was performed next, the oropharynx and esophagus appeared within the normal limits. There was 1-2cm hiatal hernia.? The z-line was smooth. One biopsy was obtained from the GE junction. The small pouch was entered, appeared to be of normal size. There was no gastritis and the gastrojejunostomy was patent. A biopsy was obtained from the gastric pouch. No significant bleeding was noted from any of the biopsy sites. There was no anastomotic ulcer but there was mild inflammation at the mucosa of the Rudy limb neat the anastomosis.? At that point the scope was advanced into the proximal small intestine (proximal Rudy limb) which appeared to be normal as well. The Rudy limb and the pouch were decompressed and the scope was withdrawn from the patient's mouth. The patient was awaken and was transferred in stable condition to the Recovery Room for further care. I was present and performed all steps of the procedure. There were no residents to assist with this case. Mikel Vázquez M.D., Ph.D. Surgeon: Randolph Vázquez MD Anesthesia: MAC Was an Oil Pipeline Dispatcher used for this Procedure?: No Estimated blood loss (mL): 0 IV fluids (mL): 400 Urine output (mL): 0 (No dominique to record output) Pathology: other (1) gastric pouch, 2) GE junction x1) Condition: stable Disposition: PACU
[2023-10-02 12:56] VITALS: BP 142/95; PULSE 62; RESP 16; TEMP 36.6; O2SAT 96
[2023-10-02 13:21] VITALS: BP 148/98; PULSE 50; RESP 16; O2SAT 98
[2023-10-02 13:36] VITALS: BP 129/71; PULSE 50; RESP 16; O2SAT 100
[2023-10-02 13:51] VITALS: BP 145/65; PULSE 55; RESP 16; TEMP 36.6; O2SAT 100
--- NOTE | 2023-10-02 14:40 | HO.POSTANES ---
Post Anesthesia Evaluation Post Anesthesia Evaluation Date of Service: 10/02/23 Vital Signs: Vital Signs Temp Pulse Resp BP Pulse Ox O2 Del Method O2 Flow Rate 10/02/23 13:51 98 F 55 16 145/65 H 100 Room Air 10/02/23 13:36 50 16 129/71 100 Room Air 10/02/23 13:21 50 16 148/98 H 98 Room Air 10/02/23 12:56 98 F 62 16 142/95 H 96 Nasal Cannula 2 10/02/23 11:43 97.5 F 63 16 146/77 H 100 Room Air Anesthesia: Monitored Mental Status: Awake Pain Control: Satisfactory Nausea/Vomiting: None Hydration: Adequate Anesthesia-Related Issues: No Anes. Related Issues
== END 2023-10-02 15:11 | disposition home or self-care (01) ==
PROVIDERS: PCP Internal Medicine; Visit Provider Surgery
PROC: 0DJ08ZZ Inspection of Upper Intestinal Tract, Via Natural or Artificial Opening Endoscopic (ICD-10-PCS; CPT 43235; principal; 2023-10-02 13:10)
DX: K44.9 Diaphragmatic hernia without obstruction or gangrene (principal); K63.89 Other specified diseases of intestine; K28.9 Gastrojejunal ulcer, unspecified as acute or chronic, without hemorrhage or perforation; Z98.84 Bariatric surgery status
CPT/HCPCS: 43239; 88305; 88313; 88342; J2250; J2704

== ENCOUNTER → 2023-10-02 10:59 | Outpatient (BNV) | payer MEDICARE, MEDICAID, SELFPAY | PROVIDERS: PCP Internal Medicine; Visit Provider Surgery | DX: K44.9 Diaphragmatic hernia without obstruction or gangrene (principal); R10.12 Left upper quadrant pain | CPT/HCPCS: 43239 ==

== ENCOUNTER 2023-10-10 10:21 | Outpatient (AMB) | payer MEDICARE, MEDICAID, SELFPAY ==
--- NOTE | 2023-10-10 10:26 | MHC.PC.OV ---
Vital Signs 10/10/23 10:28 Height 5 ft 8 in Weight 204 lb 4 oz BMI 31.1 BP 120/74 Blood Pressure Location Lt brachial Position Sitting Pulse 55 Pulse Source Pulse Oximeter Pulse Oximetry (%) 98 Oxygen Delivery Method Room Air Intake Visit Reasons: Eckert 5/20 shingles Intake Note: Patient is here to follow-up after a visit the emergency department at [facility] on 09/23/23 Corporate Investigator: Not Required per policy Accompanied by: Self / Same As Patient Allergies morphine [MORPHINE] Allergy (Severe, Verified 10/11/23 13:15) SHORTNESS OF BREATH, resp depression adhesive tape [ADHESIVE TAPE] Allergy (Intermediate, Verified 10/11/23 13:15) RASH metformin [METFORMIN] Allergy (Intermediate, Verified 10/11/23 13:15) RASH Medication List - Last Reconciled 10/11/23 by Dominic Evans MD cyclobenzaprine 5 mg PO BEDTIME PRN fluticasone propionate 50 mcg/actuation (Flonase Allergy Relief) 1 spray intranasal DAILY pantoprazole 40 mg PO DAILY tadalafil 5 mg PO DAILY 90 days tamsulosin 0.4 mg PO BEDTIME 90 days Tobacco use date assessed: 10/10/23 Dental Screening Dental Screen Date: 10/10/23 Did you have a dental visit in the last 12 months?: Yes Did you have a dental problem in the last 6 months where you did not have access to dental care?: No Was dental information given to patient?: Patient has dentist HPI Eckert 5/20 shingles HPI Details 58-year-old male presents to the office to discuss his medical condition. Since last office visit, patient was diagnosed with herpes zoster infection and received 10 days of valacyclovir. The discomfort in the area is slowly subsiding but continues to have episodes of discomfort. He describes them as shooting pain. Able to function and do activities of daily living. Currently he has on no medications for them. Continuing his current medications. He is compliant with all of them. [facility] Medical History History of benign bladder tumor Acute appendicitis Failed cervical fusion Anxiety Thoracic radiculopathy due to degenerative joint disease of spine Dyshidrotic eczema Onychomycosis Myofascial pain syndrome Postlaminectomy syndrome of lumbar region Radiculopathy, lumbar region Cervical vertebral fusion Surgical History History of laparoscopic appendectomy (09/17/21) S/P laparoscopic appendectomy History of gastric bypass History of neck surgery History of bariatric surgery History of lumbar fusion History of lumbar laminectomy Family History Mother Liver disease Father Diabetes Sister Leukemia Social History Household Members: Spouse Housing: Apartment Alcohol intake: current Alcohol intake frequency: does not drink Patient Tobacco Use Status: Never used Tobacco e-Cigarette/Vaping Use: Never Used Second Hand Smoke Exposure: No service: No Current occupational status: disabled Cognitive needs: No Hearing needs: No Vision needs: Yes (Glasses) Questionnaire PHQ-9 Over the last 2 weeks, how often have you been bothered by any of the following problems? 1. Little interest or pleasure in doing things: not at all 2. Feeling down, depressed, or hopeless: not at all 3. Trouble falling or staying asleep, or sleeping too much: not at all 4. Feeling tired or having little energy: not at all 5. Poor appetite or overeating: not at all 6. Feeling bad about yourself - or that you are a failure or have let yourself or your family down: not at all 7. Trouble concentrating on things, such as reading the newspaper or watching television: not at all 8. Moving or speaking so slowly that other people could have noticed. Or the opposite - being so fidgety or restless that you have been moving around a lot more than usual: not at all 9. Thoughts that you would be better off or of hurting yourself in some way: not at all Total score: 0 Depression Screening Interpretation: Negative Depression Screening Done: Yes Source: Developed by Drs. Deon Subramanian, Criselda Rdz, Francisco J Farooq and colleagues, with an educational nasima from [employer]. Thrive Questionnaire Date Thrive assessed: 10/10/23 I am a: Patient What is your living situation today?: I have a steady place to live Within the past 12 months, did the food you bought not last and you didn't have the money to get more?: Never true Within the past 12 months, did you worry whether your food would run out before you got money to buy more?: Never true Do you have trouble paying for medicines?: No Do you have trouble getting transportation to medical appointments?: No Do you have trouble paying your heating and electricity bill?: No Do you have trouble taking care of your child, family member or friend?: No Do you have trouble with day-to-day activities such as bathing, preparing meals, shopping, managing finances, etc.?: No Are you currently unemployed and looking for a job?: No Are you interested in more education?: No Currently or been in a relationship where the following occur: no concerns reported THRIVE Score: 0 AUDIT C Alcohol Use Questionnaire (AUDIT-C) 1. How often do you have a drink containing alcohol?: Never Total Score: 0 DANK-7 AMB Questionnaire DANK-7 Date DANK - 7 assessed: 10/10/23 Feeling nervous, anxious, or on edge: 0 = Not at all Not being able to stop or control worryin = Not at all Worrying too much about different things: 0 = Not at all Trouble relaxin = Not at all Being so restless that it is hard to sit still: 0 = Not at all Becoming easily annoyed or irritable: 0 = Not at all Feeling afraid as if something awful might happen: 0 = Not at all Total DANK-7 score (0-4 normal; 5-9 mild; 10-14 moderate; 15-21 severe): 0 Source: Developed by Drs. Deon Subramanian, Criselda Rdz, Francisco J Farooq and colleagues, with an educational nasima from [employer]. Physical exam (Primary Care) Vital Signs: Last Vital Signs Pulse 55 10/10/23 10:28 BP 120/74 10/10/23 10:28 Pulse Ox 98 10/10/23 10:28 Oxygen Delivery Method Room Air 10/10/23 10:28 BMI result Body Mass Index 31.1 BMI Assessment/Plan discussion: High (1 lb per week weight loss suggested.) BMI High, discussed plan: lifestyle, weight reduction and dietary Tobacco/Smoking Status: Tobacco use Status Tobacco use date assessed 10/10/23 10/10/23 10:32 Patient Tobacco Use Status Never used Tobacco 10/10/23 10:32 e-Cigarette/Vaping Use Never Used 10/10/23 10:32 PHQ-9: PHQ-9 Score PHQ-9: Total score 0 10/10/23 10:32 Depression Screening Interpretation: Negative Thrive Assessment: Date of Thrive Assessment Date Thrive assessed 10/10/23 10/10/23 10:32 Currently or been in a relationship where the following occur: no concerns reported Const General: cooperative and healthy appearing Nutritional Appearance: well nourished Orientation/consciousness: patient oriented x3 Limitations: no limitations HENMT Head: Yes normal to inspection Eyes General: appearance normal, both eyes and all related structures Neck Neck: Yes normal visual inspection Chest Chest palpation & inspection: normal palpation of entire chest wall Resp Effort & Inspection: normal respiratory effort Skin Other: Chest: Fading, discrete, erythematous lesions. Vesicles are decreasing in size. Neuro General: patient oriented x3 Assessment and Plan Assessment & Plan (1) Ulcer at site of surgical anastomosis following bypass of stomach: Code(s): K28.9 - Gastrojejunal ulcer, unspecified as acute or chronic, without hemorrhage or perforation Plan: Patient has a scheduled endoscopy. This is after his weight loss reduction surgery. Encouraged the patient to keep the appointment. (2) Post herpetic neuralgia: Code(s): B02.29 - Other postherpetic nervous system involvement Plan: Patient was offered Neurontin. Currently he has on a liquid diet. He declines the medication. If his pain symptoms worsen, he will follow-up here. Coding Level of Care Code Est Pt Level 4 (81896) Complex EM visit Add On G2211 Diagnoses Ulcer at site of surgical anastomosis following bypass of stomach K28.9 Post herpetic neuralgia B02.29
[2023-10-10 10:28] VITALS: BP 120/74; PULSE 55; O2SAT 98; BMI 31.1
== END 2023-10-10 11:11 | disposition home or self-care (01) ==
PROVIDERS: PCP Internal Medicine; Visit Provider Internal Medicine
DX: K28.9 Gastrojejunal ulcer, unspecified as acute or chronic, without hemorrhage or perforation (principal); B02.29 Other postherpetic nervous system involvement
CPT/HCPCS: 99214; G2211

== ENCOUNTER 2024-01-22 10:04 | Outpatient (AMB) | payer MEDICARE, MEDICAID, SELFPAY ==
--- NOTE | 2024-01-22 10:14 | A.OFFPC_ITS ---
Vital Signs 01/22/24 10:16 Height 5 ft 8 in Weight 209 lb 8 oz BMI 31.9 BP 110/78 Blood Pressure Location Rt brachial Position Sitting Pulse 82 Pulse Source Pulse Oximeter Pulse Oximetry (%) 98 Oxygen Delivery Method Room Air Intake Visit Reasons: 3mof\u Intake Note: Patient is here to follow up on BPH, Radiculopathy lumbar region, Hyperglycemia. Credit Risk Management Director Required: No Websphere Message Broker Developer: Not Required per policy Accompanied by: Self / Same As Patient Allergies morphine [MORPHINE] Allergy (Severe, Verified 01/22/24 10:15) SHORTNESS OF BREATH, resp depression adhesive tape [ADHESIVE TAPE] Allergy (Intermediate, Verified 01/22/24 10:15) RASH metformin [METFORMIN] Allergy (Intermediate, Verified 01/22/24 10:15) RASH Tobacco use date assessed: 01/22/24 Dental Screening Dental Screen Date: 10/10/23 HPI 3mof\u HPI Details 58-year-old male presents to the discuss his chronic medical conditions. Since last office visit, patient had the endoscopy in the ulcer at the anastomosis site has healed. Continues to take the PPI. Also his post herpetic neuralgia symptoms have subsided and occasionally has headaches. Not taking the gabapentin anymore. Patient has been using xylometazoline nasal spray regularly as his nose gets blocked at night and is unable to breathe. He tried Flonase with minimal improvement. Compliant with all medications. Able to function and do all activities of daily living. [facility] Medical History (Updated 01/24/24 @ 07:00 by Domiinc Evans MD) Vasomotor rhinitis History of benign bladder tumor Acute appendicitis Failed cervical fusion Anxiety Thoracic radiculopathy due to degenerative joint disease of spine Dyshidrotic eczema Onychomycosis Myofascial pain syndrome Postlaminectomy syndrome of lumbar region Radiculopathy, lumbar region Cervical vertebral fusion Surgical History History of laparoscopic appendectomy (09/17/21) S/P laparoscopic appendectomy History of gastric bypass History of neck surgery History of bariatric surgery History of lumbar fusion History of lumbar laminectomy Family History Mother Liver disease Father Diabetes Sister Leukemia Social History (Reviewed 01/22/24 @ 10:14 by ISABELLE Rocha Household Members: Spouse Housing: Apartment Alcohol intake: current Alcohol intake frequency: does not drink Patient Tobacco Use Status: Never used Tobacco e-Cigarette/Vaping Use: Never Used Second Hand Smoke Exposure: No service: No Current occupational status: disabled Cognitive needs: No Hearing needs: No Vision needs: Yes (Glasses) Questionnaire Thrive Questionnaire Date Thrive assessed: 10/10/23 Are you currently unemployed and looking for a job?: No DANK-7 AMB Questionnaire DANK-7 Date DANK - 7 assessed: 10/10/23 Source: Developed by Drs. Deon Subramanian, Criselda Rdz, Francisco J Farooq and colleagues, with an educational nasima from [employer]. Physical exam (Primary Care) Vital Signs: Last Vital Signs Pulse 82 01/22/24 10:16 BP 110/78 01/22/24 10:16 Pulse Ox 98 01/22/24 10:16 Oxygen Delivery Method Room Air 01/22/24 10:16 Care Plan Goal for BP management: Blood pressure is stable. BMI result Body Mass Index 31.9 BMI Assessment/Plan discussion: High Tobacco/Smoking Status: Tobacco use Status Tobacco use date assessed 01/22/24 01/22/24 10:23 Patient Tobacco Use Status Never used Tobacco 01/22/24 10:23 e-Cigarette/Vaping Use Never Used 01/22/24 10:23 Thrive Assessment: Date of Thrive Assessment Date Thrive assessed 10/10/23 01/22/24 10:23 Const General: cooperative and healthy appearing Nutritional Appearance: well nourished Orientation/consciousness: patient oriented x3 Limitations: no limitations HENMT Head: Yes normal to inspection Eyes General: appearance normal, both eyes and all related structures Neck Neck: Yes normal visual inspection Chest Chest palpation & inspection: normal palpation of entire chest wall Resp Effort & Inspection: normal respiratory effort Neuro General: patient oriented x3 Assessment and Plan Assessment & Plan (1) Headache: Code(s): R51.9 - Headache, unspecified Plan: Mostly vascular in nature. [id number] nonsteroidals suggested. If symptoms persist to follow-up here. (2) Hyperglycemia: Code(s): R73.9 - Hyperglycemia, unspecified Plan: Blood work has been ordered. Will call with the results. (3) Vasomotor rhinitis: Code(s): J30.0 - Vasomotor rhinitis Plan: ENT appointment has been requested for an opinion on the deviated nasal septum. Patient was advised to discontinue the xylometazoline and try the Flonase. (4) Ulcer at site of surgical anastomosis following bypass of stomach: Code(s): K28.9 - Gastrojejunal ulcer, unspecified as acute or chronic, without hemorrhage or perforation (5) Anxiety: Code(s): F41.9 - Anxiety disorder, unspecified Orders: Orders Complete Blood Count no Diff 01/22/24 R51.9 - Headache, unspecified, R73.9 - Hyperglycemia, unspecified UA and rflx microscopic 01/22/24 R51.9 - Headache, unspecified, R73.9 - Hyperglycemia, unspecified Basic Metabolic Panel 01/22/24 R51.9 - Headache, unspecified, R73.9 - Hyperglycemia, unspecified Liver Panel 01/22/24 R51.9 - Headache, unspecified, R73.9 - Hyperglycemia, unspecified Lipid Panel 01/22/24 R51.9 - Headache, unspecified, R73.9 - Hyperglycemia, unspecified Thyroid Stimulating Hormone 01/22/24 R51.9 - Headache, unspecified, R73.9 - Hyperglycemia, unspecified Referrals Ear/Nose/Throat Referral J30.0 - Vasomotor rhinitis Coding Level of Care Code Est Pt Level 4 (00237) Complex EM visit Add On G2211 Diagnoses Headache R51.9 Hyperglycemia R73.9 Vasomotor rhinitis J30.0 Ulcer at site of surgical anastomosis following bypass of stomach K28.9 Anxiety F41.9
[2024-01-22 10:16] VITALS: BP 110/78; PULSE 82; O2SAT 98; BMI 31.9
== END 2024-01-22 11:00 | disposition home or self-care (01) ==
PROVIDERS: PCP Internal Medicine; Visit Provider Internal Medicine
DX: R51.9 Headache, unspecified (principal); R73.9 Hyperglycemia, unspecified; J30.0 Vasomotor rhinitis; K28.9 Gastrojejunal ulcer, unspecified as acute or chronic, without hemorrhage or perforation; F41.9 Anxiety disorder, unspecified

== ENCOUNTER → 2024-01-22 10:04 | Outpatient (BNVA) | payer MEDICARE, MEDICAID, SELFPAY | PROVIDERS: PCP Internal Medicine; Visit Provider Internal Medicine | DX: R51.9 Headache, unspecified (principal); R73.9 Hyperglycemia, unspecified; J30.0 Vasomotor rhinitis; K28.9 Gastrojejunal ulcer, unspecified as acute or chronic, without hemorrhage or perforation; F41.9 Anxiety disorder, unspecified | CPT/HCPCS: 99212 ==

== ENCOUNTER 2024-03-05 07:27 | Outpatient (REF) | payer MEDICARE, MEDICAID, SELFPAY ==
[2024-03-05 08:46] LABS: Hematocrit 45.2 % (42.0-52.0); Hemoglobin 14.6 g/dl (14.0-18.0); Mean Corpuscular HGB Conc 32.3 g/dl (31.0-36.0); Mean Corpuscular Hemoglobin 26.9 pg (27.0-33.0); Mean Corpuscular Volume 83.4 fL (80.0-98.0); Mean Platelet Volume 11.4 fL (9.4-12.4); Platelet Count 207 X10*3/uL (160-400); Red Blood Count 5.42 X10*6/uL (4.60-5.80); Red Cell Distribution Width 12.3 % (11.0-16.0); White Blood Count 5.4 X10*3/uL (4.8-10.8)
[2024-03-05 08:48] LABS: Appearance Urine Clear; Color Urine Dark Yellow; Glucose Urine UA Negative (Negative); Leukocyte Esterase Urine Small (1+) (Negative); Nitrite Urine Negative (Negative); PH 5.5 (5.0-9.0); Specific Gravity - Urine >= 1.030 (1.005-1.025); UMIC TRIGGER UA YES; Urine Blood Negative (Negative); Urine Ketones Trace mg/dL (Negative); Urine Protein Trace mg/dL (Neg-Trace)
[2024-03-05 08:53] LABS: Bacteria Urine None Seen (None Seen); Hyaline Casts Urine 0-2 /LPF (0-2); RBC Urine 0-2 /HPF (0-2)
[2024-03-05 09:41] LABS: Alanine Aminotransferase 23 U/L (0-40); Albumin Level 4.1 g/dL (3.5-5.0); Alkaline Phosphatase 57 U/L (39-117); Anion Gap 12 (12-20); Aspartate Amino Transferase 18 U/L (5-37); Bilirubin Direct 0.2 mg/dL (0.0-0.5); Bilirubin Total 0.6 mg/dL (0.0-1.0); Blood Urea Nitrogen 12 mg/dL (9-16); Calcium 9.7 mg/dL (8.4-10.2); Carbon Dioxide 27 mmol/L (22-29); Chloride 104 mmol/L (96-108); Cholesterol 155 mg/dL (<200); Estimated Glomerular Filt Rate > 60; Glucose Random 162 mg/dL (60-115); HDL Cholesterol 33 mg/dL (>40); LDL Cholesterol Calculated 97 mg/dL (<100); Potassium 4.5 mmol/L (3.3-5.1); Sodium 138 mmol/L (135-145); Thyroid Stimulating Hormone 1.17 uIU/mL (0.32-4.0); Total Protein 7.3 g/dL (6.5-8.0); Triglycerides 125 mg/dL (<150)
== END 2024-03-05 07:28 | disposition home or self-care (01) ==
LOC: HO.LAB 07:27
PROVIDERS: PCP Internal Medicine; Visit Provider Internal Medicine
DX: R51.9 Headache, unspecified (principal); R73.9 Hyperglycemia, unspecified
CPT/HCPCS: 36415; 80048; 80061; 80076; 81001; 84443; 85027

== ENCOUNTER 2024-03-16 08:24 | Outpatient (REF) | payer MEDICARE, MEDICAID, SELFPAY ==
[2024-03-16 11:03] LABS: Appearance Urine Clear; Color Urine Yellow; Glucose Urine UA Negative (Negative); Leukocyte Esterase Urine Negative (Negative); Nitrite Urine Negative (Negative); PH 6.5 (5.0-9.0); Urine Blood Negative (Negative); Urine Ketones Negative (Negative); Urine Protein Negative (Neg-Trace)
[2024-03-16 11:31] LABS: Erythrocyte Sedimentation Rate 6 MM/HR (0-15)
== END 2024-03-16 08:25 | disposition home or self-care (01) ==
LOC: HO.LAB 08:24
PROVIDERS: PCP Internal Medicine; Visit Provider Internal Medicine
DX: M54.50 Low back pain, unspecified (principal); J43.2 Centrilobular emphysema; E11.9 Type 2 diabetes mellitus without complications; R51.9 Headache, unspecified; Z23 Encounter for immunization
CPT/HCPCS: 36415; 81003; 85652; 90471; 90656; 99212

== ENCOUNTER 2024-03-16 08:24 | Outpatient (AMB) | payer MEDICARE, MEDICAID, SELFPAY ==
--- NOTE | 2024-03-16 08:28 | A.OFFPC_ITS ---
Vital Signs 03/16/24 08:29 Height 5 ft 8 in Weight 209 lb 6 oz BMI 31.8 BP 110/60 Blood Pressure Location Lt brachial Position Sitting Pulse 72 Pulse Source Pulse Oximeter Pulse Oximetry (%) 98 Oxygen Delivery Method Room Air Intake Visit Reasons: back pain Intake Note: Patient is here to follow up on Back pain which radiate down right leg. Complaint of left side of stomach pain Escalator Service Mechanic Required: No Denier Control Operator: Present Accompanied by: Spouse Allergies morphine [MORPHINE] Allergy (Severe, Verified 03/16/24 09:29) SHORTNESS OF BREATH, resp depression adhesive tape [ADHESIVE TAPE] Allergy (Intermediate, Verified 03/16/24 09:29) RASH metformin [METFORMIN] Allergy (Intermediate, Verified 03/16/24 09:29) RASH Medication List - Last Reconciled 03/16/24 by Dominic Evans MD cyclobenzaprine 5 mg PO BEDTIME PRN fluticasone propionate 50 mcg/actuation (Flonase Allergy Relief) 1 spray intranasal DAILY pantoprazole 40 mg PO DAILY tadalafil 5 mg PO DAILY 90 days tamsulosin 0.4 mg PO BEDTIME 90 days Tobacco use date assessed: 03/16/24 Dental Screening Dental Screen Date: 10/10/23 HPI HPI Comments History of Present Illness Details 58yoM with a PMHx of Chronic back pain w ith lumbar radiculopathy, Spondyloarthritis who presents for evaluation of acute on chronic lower back pain. He reports it has been worsening over the past 2 weeks radiating to his Right lower leg which is similar to his chronic back pain in the past. He walks with a cane. Patient also admits to left upper quadrant abdominal pain. Was recently treated for an infection in his abdomen for 3 months with antibiotics. He admits to a history of lactose intolerant. Reports a colonoscopy in the last 3 years that he believes. Denies any fevers, nausea, vomiting, hematuria, dysuria, black or bloody stools. His at bedside is currently dealing with dementia. He is taking care of his although she does have a GLASS CURVATURE GAUGER. Patient has ENT appointment 08/23/2024. Currently not utilizing any Flonase reports will need a prescription. Patient reports he has not taking any medications for diabetes. Since he lost weight over the past 2 years he has not had to take any medications for diabetes he reports He reports he recently had blood work. PFSH Medical History (Updated 03/16/24 @ 09:21 by Chantal Partida PA-C) Vasomotor rhinitis History of benign bladder tumor Acute appendicitis Failed cervical fusion Anxiety Thoracic radiculopathy due to degenerative joint disease of spine Dyshidrotic eczema Onychomycosis Myofascial pain syndrome Postlaminectomy syndrome of lumbar region Radiculopathy, lumbar region Cervical vertebral fusion Surgical History (Updated 03/16/24 @ 09:29 by Dominic Evans MD) H/O colonoscopy (~01/12/17) History of laparoscopic appendectomy (09/17/21) S/P laparoscopic appendectomy History of gastric bypass History of neck surgery History of bariatric surgery History of lumbar fusion History of lumbar laminectomy Family History Mother Liver disease Father Diabetes Sister Leukemia Social History Household Members: Spouse Housing: Apartment Alcohol intake: current Alcohol intake frequency: does not drink Patient Tobacco Use Status: Never used Tobacco e-Cigarette/Vaping Use: Never Used Second Hand Smoke Exposure: No service: No Current occupational status: disabled Cognitive needs: No Hearing needs: No Vision needs: Yes (Glasses) Questionnaire Thrive Questionnaire Date Thrive assessed: 10/10/23 Are you currently unemployed and looking for a job?: No DANK-7 AMB Questionnaire DANK-7 Date DANK - 7 assessed: 10/10/23 Source: Developed by Drs. Deon Subramanian, Criselda Rdz, Francisco J Farooq and colleagues, with an educational nasima from [employer]. Review of Systems Const All systems reviewed & are unremarkable except as noted in HPI and below Eyes Reports as per HPI and Reports no additional complaints Physical exam (Primary Care) Vital Signs: Last Vital Signs Pulse 72 03/16/24 08:29 BP 110/60 03/16/24 08:29 Pulse Ox 98 03/16/24 08:29 Oxygen Delivery Method Room Air 03/16/24 08:29 General: Patient alert and oriented x3. Not in any acute distress. Utilizing cane. HEENT: EOMI. MMM. Normal voice. Lungs: Breathing normally. Abdomen: Soft. Mild tenderness to left upper quadrant. No organomegaly. No CVA tenderness is noted. Back: Moving all extremities. No obvious joint swelling. No mid cervic al/thoracic/lumbar tenderness. No step-offs or deformities are noted. There are no rashes noted. No fluctuance or signs of infection. Patient has tenderness to right lower para-Musculature. Muscle spasm noted to the right lower back. Negative straight leg raise bilaterally. Neuro: Moving all extremities. No focal deficits. BMI result Body Mass Index 31.8 Tobacco/Smoking Status: Tobacco use Status Tobacco use date assessed 03/16/24 03/16/24 08:35 Patient Tobacco Use Status Never used Tobacco 03/16/24 08:35 e-Cigarette/Vaping Use Never Used 03/16/24 08:35 Thrive Assessment: Date of Thrive Assessment Date Thrive assessed 10/10/23 03/16/24 08:35 Office Procedures Flu Questionnaire Does the patient have a severe egg allergy?: No Does the patient have severe life threatening allergies?: No Does the patient have a fever or illness today?: No Has the patient ever had Guillain-[place] Syndrome?: No Has the patient ever had any past reaction to a flu shot?: No Immunizations Fluarix Triv [id number] (PF) 45 mcg (15 mcg x 3)/0.5 mL IM syringe Performing Provider: Dominic Evans MD [facility] Administered by: ALYSSA Sosa on 03/16/24 09:25 Dose Route Admin Location Dispensed Lot Number Expiration Date [facility] Music Producer 0.5 mL IM Left Deltoid 0.5 mL [id number] 11/02/24 [id number] [employer]angutrans VIS Given Date VIS Provided VIS Publication Date 03/16/24 Single Vaccine 20 Eligibility Eligibility Date Funding Source Not [facility] Eligible 03/16/24 Private Coding Level of Care Code Est Pt Level 4 (26930) Complex EM visit Add On G2211 Diagnoses Back pain M54.9 Nasal septal deviation J34.2 Type 2 diabetes mellitus without complication E11.9 Assessment & Plan Assessment & Plan (1) Back pain: Code(s): M54.9 - Dorsalgia, unspecified Category: Medical Plan: Patient will be referred to physical therapy. Patient will be prescribed meloxicam and Flexeril. Will obtain inflammatory marker ESR CRP. No imaging indicated at this time. Patient to return in 2 weeks for re-evaluation. (2) Nasal septal deviation: Code(s): J34.2 - Deviated nasal septum Category: Medical Plan: Patient to follow-up with ENT 08/23/2024 as scheduled. Patient will be prescribed Flonase to be used as needed. (3) Type 2 diabetes mellitus without complication: Code(s): E11.9 - Type 2 diabetes mellitus without complications Category: Medical Plan: A1c level above 8.0. Patient will be started on Trulicity. Patient educated understands and agrees with plan. Plan Patient will be given influenza vaccine at this time. Orders: Orders Influenza [id number] Immunization Today Z23 - Encounter for immunization Erythrocyte Sedimentation Rate Today M54.9 - Dorsalgia, unspecified PT Evaluation and Treatment Today M54.9 - Dorsalgia, unspecified Medications: New cyclobenzaprine 10 mg PO BEDTIME 14 tabs 0RF dulaglutide (Trulicity) 1.5 mg (0.5 mL) subcut QWEEK 2 mL 1RF meloxicam 15 mg PO DAILY 14 tabs 0RF lidocaine 5% (Lidoderm) leave on most painful area for up to 12 hrs 1 patch topical DAILY 30 ea 0RF Refilled fluticasone propionate 50 mcg/actuation (Flonase Allergy Relief) administer into each nostril 1 spray intranasal DAILY 9.9 mL 1RF
[2024-03-16 08:29] VITALS: BP 110/60; PULSE 72; O2SAT 98; BMI 31.8
== END 2024-03-16 09:31 | disposition home or self-care (01) ==
PROVIDERS: PCP Internal Medicine; Visit Provider Internal Medicine
DX: M54.9 Dorsalgia, unspecified (principal); J34.2 Deviated nasal septum; E11.9 Type 2 diabetes mellitus without complications

== ENCOUNTER 2024-03-17 10:10 | Emergency (ER) | payer MEDICARE, MEDICAID, SELFPAY ==
--- NOTE | ~2024-03-17 | CT_ITS ---
EXAMINATION: CT ABDOMEN AND PELVIS WITH CONTRAST CLINICAL INFORMATION: Left upper quadrant abdominal pain. COMPARISON: CT abdomen and pelvis 09/16/2021. TECHNIQUE: Multidetector volumetric images were obtained from the superior aspect of the liver through the pubic symphysis following administration 85 mL of Omnipaque 350 intravenous contrast. Sagittal and coronal reformatted images were obtained on the technologist's workstation. Oral contrast: Utilized This CT examination was performed using dose optimization techniques as appropriate, variously including the following: *Automated exposure control *Adjustment of mA and/or kV according to patient size (this includes techniques or standardized protocols for targeted exams where dose is matched to indication/reason for exam; i.e. extremities or head) *Use of iterative reconstruction technique DLP: 762 mGy-cm FINDINGS: LUNG BASES: The visualized lung bases are unremarkable. LIVER, GALLBLADDER, AND BILIARY TREE: Punctate benign calcification within the medial segment of the left lobe the liver or the liver is otherwise normal in appearance. The gallbladder is unremarkable with no evidence of radiopaque gallstones, gallbladder wall thickening, or obvious pericholecystic inflammatory changes. PANCREAS: Unremarkable. SPLEEN: Unremarkable. ADRENAL GLANDS: Unremarkable. KIDNEYS AND URETERS: Several rounded low-density foci noted within the kidneys including approximate 1.5 cm focus in the inferior pole of the left kidney. These findings likely represent benign, simple cyst more no additional imaging follow-up on the basis of this examination. BLADDER: Unremarkable. GASTROINTESTINAL TRACT: Suture material is present in the base of the cecum. The appendix is absent. Oral contrast agent is noted in the small bowel and ascending colon. A retrocolic Rudy-en-Y gastric bypass is noted. No intestinal dilatation or mural thickening visualized. No free intraperitoneal fluid or gas collections noted. Normal appearance of the visualized components of the superior mesenteric artery. No inflammatory changes identified within the small bowel mesentery or sigmoid mesentery. ABDOMINAL WALL: No significant hernia is appreciated. LYMPH NODES: Normal. VASCULAR: Unremarkable. PELVIC VISCERA: Normal appearance of the prostate and seminal vesicles. OSSEOUS STRUCTURES: No suspicious skeletal abnormalities noted. Partially visualized L5-S1 moderate posterior broad based disc-osteophyte complex. CT/CT abdomen pelvis w IV con IMPRESSION: 1. No acute abnormalities identified. 2. Status post Rudy-en-Y gastric bypass. No intestinal dilatation or mural thickening. No free intraperitoneal fluid or gas collections. 3. Status post appendectomy. 4. Partially visualized L5-S1 moderate posterior broad based disc-osteophyte complex. Electronically signed by: Itz Sargent MD 03/18/2024 02:39 AM [facility]
[2024-03-17 11:25] VITALS: BP 147/81; PULSE 60; RESP 16; TEMP 37; O2SAT 100; BMI 32.0
--- NOTE | 2024-03-17 11:27 | ED.GENADULT ---
HPI - General Adult General Chief complaint: Abdominal Pain Stated complaint: stomach pain Time Seen by Provider: 03/17/24 22:51 Source: patient Mode of arrival: ambulatory Limitations: no limitations History of Present Illness ED Provider: Yoly Narvaez NP HPI narrative: Patient is a 58-year-old male who presents emergency department for evaluation. He has been having pain to his left upper quadrant of his abdomen for at least 4 months a timeline is not exactly clear. He states that he was seen by his bariatric doctor, Dr. Vázquez (sleeve gastrectomy in 2016), states that he had an endoscopy done and patient reports that his stomach was ?swollen? he was given a medication for 90 days which he took as prescribed. He did report improvement in his symptoms, but he feels as though things are progressing again. He states the pain is typically worse about 45 minutes after eating and then lets up some. He has associated nausea but no vomiting. He has a decreased appetite. Last night he reports that he ate 2 plums, he had severe pain described as a sharp nature all night that kept him awake which prompted him coming to emergency department earlier today. He mentioned this at a primary care visit yesterday, was found to have an elevated hemoglobin A1c of 8.0, he was started on Trulicity, as he had not been taking medications for a couple of years after weight loss. He does admit to urinary frequency but denies dysuria, hematuria, urinary hesitancy or urgency. Denies associated fevers or chills, chest pain, shortness of breath, difficulty breathing, numbness or tingling of the extremities, constipation, diarrhea, hematochezia, melena. Related Data Previous Rx's ?Medication ?Instructions ?Recorded cyclobenzaprine 5 mg tablet 5 mg PO BEDTIME PRN muscle spasm 03/14/23 #60 tabs pantoprazole 40 mg tablet,delayed 40 mg PO DAILY #90 tabs 10/03/23 release tadalafil 5 mg tablet 5 mg PO DAILY sexual activity 01/27/24 days #90 tabs tamsulosin 0.4 mg capsule 0.4 mg PO BEDTIME 90 days #90 caps 01/27/24 cyclobenzaprine 10 mg tablet 10 mg PO BEDTIME #14 tabs 03/16/24 dulaglutide 1.5 mg/0.5 mL 1.5 mg (0.5 mL) subcut QWEEK #2 mL 03/16/24 subcutaneous pen injector (Trulicity) fluticasone propionate 50 1 spray intranasal DAILY #9.9 mL 03/16/24 mcg/actuation nasal spray,suspension (Flonase Allergy Relief) lidocaine 5 % topical patch 1 patch topical DAILY #30 ea 03/16/24 (Lidoderm) meloxicam 15 mg tablet 15 mg PO DAILY #14 tabs 03/16/24 docusate sodium 100 mg capsule 100 mg PO BID 30 days #60 caps 03/18/24 (Bah' Liqui-Gels) pantoprazole 40 mg tablet,delayed 40 mg PO DAILY #30 tabs 03/18/24 release (Protonix) Allergies Allergy/AdvReac Type Severity Reaction Status Date / Time morphine [MORPHINE] Allergy Severe SHORTNESS Verified 03/17/24 11:30 OF BREATH, resp depression adhesive tape [ADHESIVE TAPE] Allergy Intermediate RASH Verified 03/17/24 11:30 metformin [METFORMIN] Allergy Intermediate RASH Verified 03/17/24 11:30 Review of Systems Review of Systems: Yes all other systems are reviewed and are negative [facility] Past Medical History Attestation statement: The following information was validated with the patient. Source: old records reviewed Medical History Vasomotor rhinitis History of benign bladder tumor Acute appendicitis Failed cervical fusion Anxiety Thoracic radiculopathy due to degenerative joint disease of spine Dyshidrotic eczema Onychomycosis Myofascial pain syndrome Postlaminectomy syndrome of lumbar region Radiculopathy, lumbar region Cervical vertebral fusion Surgical History H/O colonoscopy (~01/12/17) History of laparoscopic appendectomy (09/17/21) S/P laparoscopic appendectomy History of gastric bypass History of neck surgery History of bariatric surgery History of lumbar fusion History of lumbar laminectomy Family History Family History Mother Liver disease Father Diabetes Sister Leukemia Social History Social History Household Members: Spouse Housing: Apartment Alcohol intake: current Alcohol intake frequency: does not drink Patient Tobacco Use Status: Never used Tobacco Smoked in Last 30 Days: No e-Cigarette/Vaping Use: Never Used Second Hand Smoke Exposure: No Use of substances other than those prescribed or required for medical reasons: No Advance Directives: No Advance Directives Information Provided: Yes service: No Current occupational status: disabled Cognitive needs: No Hearing needs: No Vision needs: Yes (Glasses) Physical Exam ED Vital Signs: Vital Signs - 24 hr 03/17/24 11:25 03/17/24 21:06 03/17/24 23:00 Temperature 98.6 F 97.8 F 97.8 F Pulse Rate 60 56 57 Respiratory Rate 16 18 16 Blood Pressure 147/81 H 143/86 H 136/83 Pulse Oximetry 100 97 97 Oxygen Delivery Method Room Air Room Air Room Air 03/18/24 01:45 Temperature 98.1 F Pulse Rate 60 Respiratory Rate 16 Blood Pressure 107/61 Pulse Oximetry 100 Oxygen Delivery Method Room Air BMI result Body Mass Index 32.0 Appearance: Alert.?Oriented to person, place and time. No acute distress.?Normal affect.?? Neck: Normal inspection.? Neck supple.?? CVS: Heart sounds normal. Normal heart rate and rhythm.? Pulses normal.?? Respiratory: No respiratory distress.? Lung sounds clear to auscultation bilaterally?? Abdomen: Soft with left upper quadrant tenderness upon palpation, mild discomfort over the epigastrium.. No rebound tenderness at McBurney's point. Negative psoas sign. Negative Rovsing sign. Negative Diallo sign. No CVAT. Normoactive bowel sounds. No pulsatile mass.?? Skin: Skin warm and dry.? Normal skin color.? Extremities: No lower extremity edema.? Neuro: Moves all extremities spontaneously. Sensation intact bilaterally. Ambulates with normal steady gait. Course Course Course Narrative: This is a rapid medical exam performed by Juan Antonio Moore NP: Additional HPI, ROS, PE not included below will be deferred to primary provider. Patient is a 58-year-old male with history of T2 DM, gastric bypass, lap appy, lumbar fusion presenting with worsening LUQ abdominal pain for past 2 months. Plan; Labs, will need CT with PO & IV contrast Reevaluation(s) Reevaluation #1: Patient signed out to my attending Dr. Marcus pending CT of the abdomen and pelvis and re-evaluation. Time: 02:09 Reevaluation #2: Dr. Vinny Marcus's note I assumed care of this patient from my colleague, nurse practitioner Yoly Narvaez at 02:00 hours pending the patient's CT scan of the abdomen pelvis with IV contrast. I did review the radiology result, there was no acute finding to explain the patient's pain. Patient states that he was feeling better but is still having left upper quadrant pain. At this time I suspect that it may be secondary to gastritis or constipation and I did discuss this with him. Patient was treated with Maalox 30 cc and viscous lidocaine 10 cc orally. Patient was started on Protonix 40 mg daily for 1 month and Colace 100 mg b.i.d.. Patient was concerned about his hemoglobin A1c and I told him that he should check his glucose in the morning and at night for 2 weeks and discuss these readings with his PCP. Patient was started on Trulicity recently for this elevated hemoglobin A1c. Time: 03:23 Medications Administered Discontinued Medications Generic Name Dose Route Start Last Admin Trade Name Randy PRN Reason Stop Dose Admin Acetaminophen 975 mg 03/17/24 21:10 03/17/24 21:14 Acetaminophen 325 Mg Tablet PO 03/17/24 21:11 975 mg ONCE ONE Administration Diatrizoate Meglum/Diatrizoate Sod 30 ml 03/18/24 01:32 03/18/24 01:33 Diatrizoate Meglumine, Sodium 30 Ml Solution PO 03/18/24 01:33 30 ml ONCE ONE Administration Sodium Chloride 1,000 mls @ 999 mls/hr 03/17/24 23:00 03/18/24 00:18 Ns IV 03/18/24 00:00 Infused .Q1H1M CLOVER Infusion Iohexol 85 ml 03/18/24 01:32 03/18/24 01:32 Iohexol 350 Mg/Ml 100 Ml Infus..Btl IV 03/18/24 01:33 85 ml ONCE ONE Administration Pantoprazole Sodium 40 mg 03/18/24 00:40 03/18/24 01:27 Pantoprazole Sodium 40 Mg/10 Ml Vial IVPUSH 03/18/24 00:41 40 mg ONCE ONE Administration Medical Decision Making Medical Decision Making MDM Narrative: Patient is a 58-year-old male with past medical history of T2 DM, sleeve gastrectomy and 2016, laparoscopic appendectomy, lumbar radiculopathy, spondyloarthritis, lumbar fusion presented to emergency department for evaluation of abdominal pain radiating to the flank progressively worsening over the past 4 months as per HPI. As noted in HPI, he did undergo an endoscopy 09/12/2023 which revealed a small diaphragmatic hernia, mild inflammation at the GJ anastomosis, did not appear to have any ulcers or active bleeding at that time, he was prescribed pantoprazole 40 mg daily. Today, he appears uncomfortable, Abdominal examination revealing left upper quadrant tenderness upon palpation, overall without signs of systemic toxicity found to be afebrile without tachycardia, no hypotension. Will obtain CBC to evaluate for leukocytosis/ anemia, CMP and lipase to evaluate for abnormal electrolytes /abnormal renal function/ abnormal hepatic/biliary function, CT of the abdomen and pelvis with oral and IV contrast and Urinalysis. Given his tenderness upon palpation over the left upper quadrant, concern for gastritis, postprandial pain concerning for PUD. Denies excessive alcohol consumption, however he does have a history of diabetes recently untreated, concern as well for acute pancreatitis. Differential Diagnosis Differential Diagnoses: The differential diagnosis associated with the presentation includes (See narrative above) No associated chest pain shortness of breath or URI symptoms to suggest pneumonia, no clinical evidence of DVT or personal history of VTE/malignancy to suggest pulmonary embolism. No high-risk past medical history to suggest myocardial infarction and is without chest pain, less likely AAA, aortic dissection. No RUQ abdominal tenderness upon palpation, negative Diallo sign, less likely acute cholecystitis, choledocholithiasis, no fever or jaundice to suggest acute cholangitis, may possibly be biliary colic secondary to cholelithiasis. No tenderness of the left lower quadrant nor associated nausea, vomiting, diarrhea patient, hematochezia or melena to suggest diverticulitis or GI bleed. No appreciable hernia to suggest strangulation/incarceration. Lower suspicion for bowel obstruction. No distention or rigidity to suggest GI perforation. Admission/Observation Consideration of admission/observation: Escalation of care including admission/observation considered (See narrative above ) Lab Data MDM Lab Attestation statement: I reviewed the patient's lab results. CBC is without leukocytosis anemia or thrombocytopenia. No electrolyte derangement. No RIOS. LFTs and lipase are within normal range. Urinalysis without evidence of infection or microscopic hematuria. 03/17/24 12:01 03/17/24 12:01 Labs: Lab Results 03/17/24 03/17/24 Range/Units 12: 21:12 WBC 6.2 (4.8-10.8) X10*3/uL RBC 5.50 (4.60-5.80) X10*6/uL Hgb 15.0 (14.0-18.0) g/dl Hct 45.8 (42.0-52.0) % MCV 83.3 (80.0-98.0) fL MCH 27.3 (27.0-33.0) pg MCHC 32.8 (31.0-36.0) g/dl RDW 12.1 (11.0-16.0) % Plt Count 209 (160-400) X10*3/uL MPV 10.6 (9.4-12.4) fL Immature Gran % (Auto) 0.2 (0.0-0.4) % Neut % (Auto) 61.4 (45-73) % Lymph % (Auto) 25.6 (20-40) % Finney % (Auto) 8.8 (2-11) % Eos % (Auto) 2.9 (0-4) % Baso % (Auto) 1.1 (0-2) % Lymph # (Auto) 1.6 (1.2-4.9) X10*3/uL Finney # (Auto) 0.6 (0.1-1.2) X10*3/uL Eos # (Auto) 0.2 (0.0-0.4) X10*3/uL Baso # (Auto) 0.1 (0.0-0.2) X10*3/uL Abs Immat Gran (auto) 0.01 (0.00-0.03) X10*3/uL Absolute Neuts (auto) 3.8 (2.0-8.3) x10*3/uL Absolute Nucleated RBC 0.000 (0.0-0.012) X10*3/uL Nucleated RBC % (auto) 0.0 (0.0-0.2) /100WBC PT 14.0 H (10.9-12.4) SEC INR 1.2 H (0.9-1.1) Sodium 138 (135-145) mmol/L Potassium 4.4 (3.3-5.1) mmol/L Chloride 105 (96-108) mmol/L Carbon Dioxide 29 (22-29) mmol/L Anion Gap 8 L (12-20) BUN 10 (9-16) mg/dL Creatinine 0.76 (0.5-1.4) mg/dL Estim Creat Clear Calc 120.2 Estimated GFR > 60 Random Glucose 129 H (60-115) mg/dL Calcium 9.2 (8.4-10.2) mg/dL Total Bilirubin 0.5 (0.0-1.0) mg/dL AST 21 (5-37) U/L ALT 21 (0-40) U/L Alkaline Phosphatase 63 (39-117) U/L Total Protein 7.4 (6.5-8.0) g/dL Albumin 4.3 (3.5-5.0) g/dL Amylase 66 (28-100) U/L Lipase 16 (8-78) U/L Urine Color Yellow Urine Appearance Clear Urine pH 6.0 (5.0-9.0) Ur Specific [place] 1.015 (1.005-1.025) Urine Protein Negative (Neg-Trace) mg/dL Urine Glucose (UA) Negative (Negative) mg/dL Urine Ketones Negative (Negative) mg/dL Urine Blood Negative (Negative) Urine Nitrite Negative (Negative) Ur Leukocyte Esterase Trace H (Negative) Urine RBC 0-2 (0-2) /HPF Urine WBC 0-5 (0-5) /HPF Ur Squamous Epith Cells 0-2 (0-2) /HPF Urine Bacteria None Seen (None Seen) Hyaline Casts 0-2 (0-2) /LPF Radiology Impression Discussion of test interpretation with radiology: I have reviewed the radiologist's reading. Radiologist Impression: CT abdomen pelvis w IV con IMPRESSION: 1. No acute abnormalities identified. 2. Status post Rudy-en-Y gastric bypass. No intestinal dilatation or mural thickening. No free intraperitoneal fluid or gas collections. 3. Status post appendectomy. 4. Partially visualized L5-S1 moderate posterior broad based disc-osteophyte complex. Electronically signed by: Itz Sargent MD 03/18/2024 02:39 AM [facility] Dictated By: Itz Sargent MD External Record Review External record reviewed: Outpatient record Chronic Conditions Patient?s care impacted by: Other (See narrative above) Discharge Plan Discharge Clinical Impression: Abdominal pain, Constipation, Gastritis Patient Disposition: Home, Self-Care Instructions: Gastritis (ED) Additional Instructions: Your blood work was unremarkable. Your glucose was only slightly elevated 129 (normal is 60-100). The CT scan of your abdomen pelvis with IV contrast did not reveal any findings to explain your pain. At this time I believe that your pain is due to inflammation of your stomach (gastritis). Take Protonix 40 mg pills, 1 pill daily for 1 month. I am also prescribing Colace 100 mg twice a day for 1 month-this is a stool softener. You were recently started on Trulicity for your elevated hemoglobin A1c. I want you to check your blood sugar at the clear in the morning and at night for 2 weeks. Write these readings down and then review them with your doctor in 2 weeks to determine if you need more medications to help with your diabetes. Take Tylenol 500 mg pills, 2 pills every 6 hours as needed for pain. Do not take any nonsteroidal anti-inflammatory medications (NSAIDs) such as ibuprofen, Motrin, Advil, Aleve, naproxen since this could make your gastritis worse and you should avoid these medicines since you had a gastric sleeve surgery. Continue all your other medications as prescribed by your providers Follow-up with your doctor in 2 days. Please return to the emergency department if your symptoms get worse or if you develop any symptoms that are concerning to you. Prescriptions: New pantoprazole [Protonix] 40 mg tablet,delayed release (DR/EC) 40 mg PO DAILY Qty: 30 0RF docusate sodium [Bah' Liqui-Gels] 100 mg capsule 100 mg PO BID 30 Days Qty: 60 0RF No Action pantoprazole 40 mg tablet,delayed release (DR/EC) 40 mg PO DAILY Qty: 90 0RF tadalafil 5 mg tablet 5 mg PO DAILY 90 Days Qty: 90 0RF tamsulosin 0.4 mg capsule 0.4 mg PO BEDTIME 90 Days Qty: 90 1RF cyclobenzaprine 5 mg tablet 5 mg PO BEDTIME PRN (Reason: muscle spasm) Qty: 60 0RF meloxicam 15 mg tablet 15 mg PO DAILY Qty: 14 0RF fluticasone propionate [Flonase Allergy Relief] 50 mcg/actuation spray,suspension 1 spray intranasal DAILY Qty: 9.9 1RF Rx Instructions: administer into each nostril cyclobenzaprine 10 mg tablet 10 mg PO BEDTIME Qty: 14 0RF lidocaine [Lidoderm] 5 % adhesive patch,medicated 1 patch topical DAILY Qty: 30 0RF Rx Instructions: leave on most painful area for up to 12 hrs Trulicity 1.5 mg/0.5 mL pen injector 1.5 mg subcut QWEEK Qty: 2 1RF Print Language: Latvian
[2024-03-17 12:06] LABS: MANUAL DIFF FLAG NO
[2024-03-17 12:08] LABS: Basophils Absolute Auto 0.1 X10*3/uL (0.0-0.2); Basophils Percent Auto 1.1 % (0-2); Eosinophils Absolute Auto 0.2 X10*3/uL (0.0-0.4); Eosinophils Percent Auto 2.9 % (0-4); Hematocrit 45.8 % (42.0-52.0); Imm Gran Abs Auto 0.01 X10*3/uL (0.00-0.03); Imm Gran Pct Auto 0.2 % (0.0-0.4); Lymphocytes Absolute Auto 1.6 X10*3/uL (1.2-4.9); Lymphocytes Percent Auto 25.6 % (20-40); Mean Corpuscular HGB Conc 32.8 g/dl (31.0-36.0); Mean Corpuscular Hemoglobin 27.3 pg (27.0-33.0); Mean Corpuscular Volume 83.3 fL (80.0-98.0); Mean Platelet Volume 10.6 fL (9.4-12.4); Monocytes Absolute Auto 0.6 X10*3/uL (0.1-1.2); Monocytes Percent Auto 8.8 % (2-11); Neutrophils Absolute Auto 3.8 x10*3/uL (2.0-8.3); Neutrophils Percent Auto 61.4 % (45-73); Platelet Count 209 X10*3/uL (160-400); Red Cell Distribution Width 12.1 % (11.0-16.0); White Blood Count 6.2 X10*3/uL (4.8-10.8)
[2024-03-17 12:25] LABS: Alanine Aminotransferase 21 U/L (0-40); Albumin Level 4.3 g/dL (3.5-5.0); Alkaline Phosphatase 63 U/L (39-117); Amylase 66 U/L (28-100); Anion Gap 8 (12-20); Aspartate Amino Transferase 21 U/L (5-37); Bilirubin Total 0.5 mg/dL (0.0-1.0); Blood Urea Nitrogen 10 mg/dL (9-16); Calcium 9.2 mg/dL (8.4-10.2); Carbon Dioxide 29 mmol/L (22-29); Chloride 105 mmol/L (96-108); Creatinine Clr Calc Pharmacy 120.2; Estimated Glomerular Filt Rate > 60; Glucose Random 129 mg/dL (60-115); Lipase 16 U/L (8-78); Potassium 4.4 mmol/L (3.3-5.1); Sodium 138 mmol/L (135-145); Total Protein 7.4 g/dL (6.5-8.0)
[2024-03-17 15:02] LABS: INTERNATIONAL NORM RATIO 1.2 (0.9-1.1)
[2024-03-17 21:06] VITALS: BP 143/86; PULSE 56; RESP 18; TEMP 36.6; O2SAT 97
[2024-03-17] MEDS: Acetaminophen 325 MG TABLET 975 MG PO (21:14)
[2024-03-17 21:26] LABS: Appearance Urine Clear; Color Urine Yellow; Glucose Urine UA Negative (Negative); Leukocyte Esterase Urine Trace (Negative); Nitrite Urine Negative (Negative); Specific Gravity - Urine 1.015 (1.005-1.025); UMIC TRIGGER UACC YES; Urine Blood Negative (Negative); Urine Ketones Negative (Negative); Urine Protein Negative (Neg-Trace)
[2024-03-17 21:35] LABS: Bacteria Urine None Seen (None Seen); Hyaline Casts Urine 0-2 /LPF (0-2); RBC Urine 0-2 /HPF (0-2); Squamous Epithelial Cell Urine 0-2 /HPF (0-2); WBC Urine 0-5 /HPF (0-5)
[2024-03-17 23:00] VITALS: BP 136/83; PULSE 57; RESP 16; TEMP 36.6; O2SAT 97
[2024-03-17] MEDS: 0.9 % Sodium Chloride 1,000 ML 999 ML IV (23:13)
[2024-03-18] MEDS: Pantoprazole Sodium 40 MG/10 ML VIAL IVPUSH (01:27)
[2024-03-18] MEDS: iohexoL 350 MG/ML 100 ML INFUS..BTL 85 ML IV (01:32)
[2024-03-18] MEDS: Diatrizoate Meglumine, Sodium 30 ML SOLUTION PO (01:33)
[2024-03-18 01:45] VITALS: BP 107/61; PULSE 60; RESP 16; TEMP 36.7; O2SAT 100
[2024-03-18] MEDS: Lidocaine HCl Viscous 2 % 15 ML SOLUTION 10 ML PO (03:46)
[2024-03-18] MEDS: Magnesium Hydrox/Alum Hydrox 30 ML ORAL.SUSP PO (03:46)
[2024-03-18 04:09] VITALS: BP 114/62; PULSE 60; RESP 16; TEMP 36.5; O2SAT 99
[2024-03-18 04:18] VITALS: BP 114/62; PULSE 60; RESP 16; TEMP 36.5; O2SAT 99
== END 2024-03-18 04:19 | disposition home or self-care (01) ==
PROVIDERS: Registered Nurse Emergency; Emergency Provider Emergency Medicine Emergency Medical Services; PCP Internal Medicine
DX: K59.00 Constipation, unspecified (principal); R10.9 Unspecified abdominal pain; K29.70 Gastritis, unspecified, without bleeding; R10.12 Left upper quadrant pain; R11.0 Nausea
CPT/HCPCS: 36415; 74177; 80053; 81001; 82150; 83690; 85025; 85610; 96361; 96374; 99284; J2470; Q9967

== ENCOUNTER 2024-03-20 13:12 | Outpatient (AMB) | payer MEDICARE, MEDICAID, SELFPAY ==
--- NOTE | 2024-03-20 13:15 | MHC.OFFVIS ---
Intake Visit Reasons: 6m/PVR Intake Note: Patient is present for PVR Follow up Urology Med: Tamsulosin, Tadalafil Antibiotic Allergy: None Blood Thinner: None Last PSA: 2022- 0.61 Last PVR:40ml Todays PVR: 48ml Patient reports no issues with urination states he does not need any refills Experimental Electronics Developer Required: No Accompanied by: Self / Same As Patient Allergies morphine [MORPHINE] Allergy (Severe, Verified 03/20/24 13:22) SHORTNESS OF BREATH, resp depression adhesive tape [ADHESIVE TAPE] Allergy (Intermediate, Verified 03/20/24 13:22) RASH metformin [METFORMIN] Allergy (Intermediate, Verified 03/20/24 13:22) RASH HPI Comments Details: Mac is a very pleasant male. He is a patient of . He is seen for the following urologic conditions - recurrent UTI - lower urinary tract symptoms in setting of diabetes Yearly review PVR stable Combination therapy tamsulosin and tadalafil Would continue Lower urinary tract symptoms Prior recurrent UTI Back surgery 2008. Previously weighed 320 lb. Confined to wheelchair for 2 years PSA 01/26 0.6 PVR initial assessment 400 cc Combination tamsulosin and tadalafil for bladder emptying PFS Medical History Vasomotor rhinitis History of benign bladder tumor Acute appendicitis Failed cervical fusion Anxiety Thoracic radiculopathy due to degenerative joint disease of spine Dyshidrotic eczema Onychomycosis Myofascial pain syndrome Postlaminectomy syndrome of lumbar region Radiculopathy, lumbar region Cervical vertebral fusion Surgical History H/O colonoscopy (~01/12/17) History of laparoscopic appendectomy (09/17/21) S/P laparoscopic appendectomy History of gastric bypass History of neck surgery History of bariatric surgery History of lumbar fusion History of lumbar laminectomy Family History Mother Liver disease Father Diabetes Sister Leukemia Social History Household Members: Spouse Housing: Apartment Alcohol intake: current Alcohol intake frequency: does not drink Patient Tobacco Use Status: Never used Tobacco e-Cigarette/Vaping Use: Never Used Second Hand Smoke Exposure: No service: No Current occupational status: disabled Cognitive needs: No Hearing needs: No Vision needs: Yes (Glasses) Review of Systems Const Denies chills and Denies fever(s) Card Reports no additional complaints and Denies syncope Resp Denies cough GI Denies abdominal pain and Denies heartburn Reports as per HPI and Denies change in libido Neuro Denies syncope Psych Denies change in libido Endo Denies change in libido Physical Exam Const General: cooperative, healthy appearing, comfortable and no acute distress Orientation/consciousness: patient oriented x3 HEENT Face and sinus: Yes normal facial exam Mouth: moist mucous membranes Neck Neck: Yes normal visual inspection, Yes full ROM and Yes trachea midline Chest Chest palpation & inspection: normal inspection of the chest Resp Effort & Inspection: normal respiratory effort, able to speak in complete sentences and no respiratory distress GI Inspection: Yes normal to inspection Back/Spine/Pelvis Cervical Spine: normal cervical lordosis Thoracic/Lumbar Spine: thoracic and lumbar spine normal to inspection Skin General skin exam: no rashes or lesions noted Neuro General: patient oriented x3, gait normal, tone normal and moves all extremities Extrem General: Yes normal to inspection and Yes capillary refill normal Office Procedures Post Void Residual Post Residual Void Post Void Residual (PVR): 48 [id number] Void Residual by ultrasound Assessment & Plan Assessment & Plan (1) BPH w urinary obs/LUTS: Code(s): N40.1 - Benign prostatic hyperplasia with lower urinary tract symptoms; N13.8 - Other obstructive and reflux uropathy Category: Medical (2) Recurrent UTI: Code(s): N39.0 - Urinary tract infection, site not specified Category: Medical (3) Urinary retention with incomplete bladder emptying: Code(s): R33.9 - Retention of urine, unspecified Category: Medical Plan Twelve month follow-up Orders: Orders AMB Post Void Residual by ultrasound Today R33.9 - Retention of urine, unspecified Patient Instructions: Imaging studies, laboratory and physical exam results were discussed and reviewed in detail. No major barriers to patient understanding were identified. An opportunity to ask questions regarding the treatment plan was provided. All questions were answered. The patient expressed understanding and agreement with the above treatment plan. The patient is aware they should contact our office by phone for worsening of their current condition or the appearance of new urologic symptoms. Compliance is encouraged with any medications and followup testing that is ordered. It is a privilege to participate in the urologic care of your patient. If you have any questions or concerns regarding treatment for the above conditions, or other urologic issues, please do not hesitate to contact me. The office telephone contact is [phone]. This note is constructed using voice recognition software. While every effort has been made to ensure accuracy a r collections rep errors may have been included. Yours sincerely, Dr Jr Caldwell MD, KAREN [facility] - Urology Providers of Expert, Compassionate Care for the Genitourinary System Coding Level of Care Code Est Pt Level 4 (66952) Diagnoses BPH w urinary obs/LUTS N40.1; N13.8 Recurrent UTI N39.0 Urinary retention with incomplete bladder emptying R33.9 CPT Codes Post Residual Void - PVR CPT Code: 18576-[id number] Void Residual by ultrasound ([id number])
== END 2024-03-20 13:34 | disposition home or self-care (01) ==
PROVIDERS: PCP Internal Medicine; Visit Provider Urology
DX: N40.1 Benign prostatic hyperplasia with lower urinary tract symptoms (principal); N13.8 Other obstructive and reflux uropathy; N39.0 Urinary tract infection, site not specified; R33.9 Retention of urine, unspecified
CPT/HCPCS: 99214

== ENCOUNTER → 2024-03-20 13:12 | Outpatient (BNVA) | payer MEDICARE, MEDICAID, SELFPAY | PROVIDERS: PCP Internal Medicine; Visit Provider Urology | DX: N40.1 Benign prostatic hyperplasia with lower urinary tract symptoms (principal); N13.8 Other obstructive and reflux uropathy; N39.0 Urinary tract infection, site not specified; R33.9 Retention of urine, unspecified | CPT/HCPCS: 51798; 99212 ==

== ENCOUNTER 2024-05-04 09:18 | Outpatient (AMB) | payer MEDICARE, MEDICAID, SELFPAY ==
--- NOTE | 2024-05-04 09:30 | MHC.PC.OV ---
Vital Signs 05/04/24 09:32 Height 5 ft 8 in Weight 206 lb 2 oz BMI 31.3 BP 130/68 Blood Pressure Location Lt brachial Position Sitting Pulse 88 Pulse Source Pulse Oximeter Pulse Oximetry (%) 98 Oxygen Delivery Method Room Air Intake Visit Reasons: Lower back side pain Intake Note: Patient is here to follow up on sharp stomach pain on the left side, constant pain on going for a month. Pt requesting for a referral to GI. Machine Shop Specialist Required: No Community Resource Officer: Present Accompanied by: Spouse Allergies morphine [MORPHINE] Allergy (Severe, Verified 05/04/24 14:55) SHORTNESS OF BREATH, resp depression adhesive tape [ADHESIVE TAPE] Allergy (Intermediate, Verified 05/04/24 14:55) RASH flurandrenolide Allergy (Intermediate, Verified 05/04/24 14:55) Rash metformin [METFORMIN] Allergy (Intermediate, Verified 05/04/24 14:55) RASH Medication List - Last Reconciled 05/04/24 by Dominic Evans MD cyclobenzaprine 10 mg PO BEDTIME docusate sodium (Bah' Liqui-Gels) 100 mg PO BID 30 days dulaglutide (Trulicity) 1.5 mg (0.5 mL) subcut QWEEK fluticasone propionate 50 mcg/actuation (Flonase Allergy Relief) 1 spray intranasal DAILY lidocaine 5% (Lidoderm) 1 patch topical DAILY pantoprazole (Protonix) 40 mg PO DAILY tadalafil 5 mg PO DAILY 90 days tamsulosin 0.4 mg PO BEDTIME 90 days Tobacco use date assessed: 05/04/24 Dental Screening Dental Screen Date: 10/10/23 COUNTS INCLUDE 234 BEDS AT THE [facility] Medical History Vasomotor rhinitis History of benign bladder tumor Acute appendicitis Failed cervical fusion Anxiety Thoracic radiculopathy due to degenerative joint disease of spine Dyshidrotic eczema Onychomycosis Myofascial pain syndrome Postlaminectomy syndrome of lumbar region Radiculopathy, lumbar region Cervical vertebral fusion Surgical History H/O colonoscopy (~01/12/17) History of laparoscopic appendectomy (09/17/21) S/P laparoscopic appendectomy History of gastric bypass History of neck surgery History of bariatric surgery History of lumbar fusion History of lumbar laminectomy Family History Mother Liver disease Father Diabetes Sister Leukemia Social History Household Members: Spouse Housing: Apartment Alcohol intake: current Alcohol intake frequency: does not drink Patient Tobacco Use Status: Never used Tobacco e-Cigarette/Vaping Use: Never Used Second Hand Smoke Exposure: No service: No Current occupational status: disabled Cognitive needs: No Hearing needs: No Vision needs: Yes (Glasses) Questionnaire Thrive Questionnaire Date Thrive assessed: 10/10/23 Are you currently unemployed and looking for a job?: No DANK-7 AMB Questionnaire DANK-7 Date DANK - 7 assessed: 10/10/23 Source: Developed by Drs. Deon Subramanian, Criselda Rdz, Francisco J Farooq and colleagues, with an educational nasima from [employer]. Physical exam (Primary Care) Vital Signs: Last Vital Signs Pulse 88 05/04/24 09:32 BP 130/68 05/04/24 09:32 Pulse Ox 98 05/04/24 09:32 Oxygen Delivery Method Room Air 05/04/24 09:32 BMI result Body Mass Index 31.3 Tobacco/Smoking Status: Tobacco use Status Tobacco use date assessed 05/04/24 05/04/24 09:40 Patient Tobacco Use Status Never used Tobacco 05/04/24 09:40 e-Cigarette/Vaping Use Never Used 05/04/24 09:40 Thrive Assessment: Date of Thrive Assessment Date Thrive assessed 10/10/23 05/04/24 09:40 Results AMB Hemoglobin A1c AMB Hemoglobin A1c 7.4 % Last Edit by ALYSSA Rocha on 05/04/24 09:42 Results Reviewed Results Reviewed: Laboratory Last Values Hgb A1c (Clinic) 7.4 % (4.0-6.0) H 05/04/24 09:29 Coding Level of Care Code Est Pt Level 4 (88177) Complex EM visit Add On G2211 Diagnoses Abdominal pain R10.9 Assessment & Plan Assessment & Plan (1) Abdominal pain: Code(s): R10.9 - Unspecified abdominal pain Plan: CT done in March reviewed. Patient had an endoscopy in September 2023. Inflammation around the anastomotic site noted. Stop the Meloxicam and cyclobenzaprine. PPI has been restarted. Repeat visit in one month. Plan History of Present Illness The patient is a 58-year-old male presenting with chronic abdominal pain. The pain has persisted for an extended period and is described as worsening postprandial. The patient reports alleviation of symptoms upon bowel movements. The patient experiences daily and constant pain, exacerbated by food intake. He denies any related gastrointestinal symptoms such as belching, burping, or emesis. Not taking any medications for it. His medical history is significant for a negative colonoscopy performed in 2015. Following an injection of Trulicity, the patient experienced dizziness and sweating, leading to suspicion of adverse drug reactions. The patient is known to be allergic to metformin, therefore Trulicity remains as the sole medication for management. Social History - The patient mentioned staying at home during holidays, suggesting a potentially low level of physical activity or social engagement. Review of Systems - Dermatologic: Reports postherpetic neuralgia. - Gastrointestinal: Reports daily abdominal pain that worsens with eating and improves with bowel movements. Reports taking lactate for lactose intolerance. - Genitourinary: Denies difficulty with urination. Physical Exam General: Cooperative and healthy appearing Nutritional Appearance: Well nourished Orientation/consciousness: Patient oriented x3 Limitations: No limitations Head: Normal to inspection General: Appearance normal, both eyes and all related structures Neck: Normal visual inspection Chest: Normal palpation of entire chest wall Respiratory: Normal respiratory effort Neurology: Patient oriented x3 Results - Colonoscopy performed in 2016 was negative for abnormalities. Plan - Evaluate potential causes of the persistent abdominal pain, including gastrointestinal disorders or complications from prior herpes zoster. - Continue current regimen of Trulicity, monitor for any further adverse effects. - Consider pain management strategies for postherpetic neuralgia if symptoms persist. - Re-assess the need for gastrointestinal evaluation if symptomatology changes or intensifies. Patient was informed and verbally consented to the use of an ambient scribe for clinic note documentation during this visit. Discussion Notes I discussed with the patient the nature of chronic abdominal pain and potential associations with previous herpes zoster as postherpetic neuralgia. We reviewed the adverse reactions experienced after Trulicity injections and considered the possibility of drug-related side effects. The patient described his pain improvement post-defecation and worsening postprandially, guiding us to plan dietary considerations and potential further gastrointestinal evaluations. I advised monitoring for any new symptoms or changes, and discussed current management strategies including pain alleviation. Patient Instructions - Monitor any changes in abdominal pain or new symptoms. - Continue taking Trulicity as directed and report any adverse reactions. - Follow dietary guidelines to assess any improvement or aggravation of pain. - Consider [id number] supplements such as lactase if lactose intolerant, as needed. - Return for reevaluation if symptoms persist or worsen. Orders: Orders AMB Hemoglobin A1c Today E11.9 - Type 2 diabetes mellitus without complications Medications: Discontinued cyclobenzaprine Discontinued Reason: Doctor's Order 5 mg PO BEDTIME PRN 60 tabs 0RF muscle spasm R51.9 - Headache, unspecified pantoprazole Discontinued Reason: Doctor's Order 40 mg PO DAILY 90 tabs 0RF K28.9 - Gastrojejunal ulcer, unspecified as acute or chronic, without hemorrhage or perforation meloxicam Discontinued Reason: Doctor's Order 15 mg PO DAILY 14 tabs 0RF
[2024-05-04 09:32] VITALS: BP 130/68; PULSE 88; O2SAT 98; BMI 31.3
== END 2024-05-04 10:18 | disposition home or self-care (01) ==
PROVIDERS: PCP Internal Medicine; Visit Provider Internal Medicine
DX: E11.9 Type 2 diabetes mellitus without complications (principal); R10.9 Unspecified abdominal pain

== ENCOUNTER → 2024-05-04 09:18 | Outpatient (BNVA) | payer MEDICARE, MEDICAID, SELFPAY | PROVIDERS: PCP Internal Medicine; Visit Provider Internal Medicine | DX: R10.9 Unspecified abdominal pain (principal); K25.9 Gastric ulcer, unspecified as acute or chronic, without hemorrhage or perforation; E11.9 Type 2 diabetes mellitus without complications | CPT/HCPCS: 83036; 99212 ==

== ENCOUNTER 2024-05-08 13:58 | Outpatient (RCR) | payer MEDICARE, MEDICAID, SELFPAY ==
--- NOTE | 2024-05-08 16:09 | MHC.PT.EP ---
[facility] [place] Office [place] Office [place] Office [address] Colleen Dyer [address] [phone] F: [phone] F: [phone] F: [phone] F: [phone] Physical Therapy Plan of Care Date of Evaluation: 05/08/24 Date of Surgery: Diagnosis: back pain (MD Dx) lumbar radiculopathy R LE with hx of lumbar laminectomy L5-S1 2006 (PT Dx) RS Assessment: Patient is a pleasant 58 y.o. male who is referred to PT by Dr. Dominic Evans MD, with Dx of dorsalgia, back pain. Pt with history of lumbar laminectomy L5-S1 in 2006. Of note is cervical fusion C3-C4 in 2010 and bariatric surgery 2015 with 100+ lbs of weight loss. PT diagnosis is lumbar radiculopathy R LE. Patient impairments include low and mid back pain, R LE radicular sxs, limited lumbar AROM, weakness in R hip, knee and ankle. Patient current functional limitations are difficulty with transfers; labored sit to stand, labored transfers in bed rolling and supine to sit, difficulty with prolonged walking with occasional AD use, difficulty with bend/squat, prolonged standing, difficulty with reciprocal stair use, needs help with lower body dressing and cleaning. Patient will benefit from skilled PT to address aforementioned impairments and functional limitations to meet established goals. Frequency and Duration: The patient will be seen 2x/week for 4 weeks Short Term Goals: 2 weeks Patient demonstrates consistency and independence with HEP to self manage symptoms. Glass Bulb Silverer Goals: 4 weeks Patient presents with increased lumbar flexion AROM 70 degrees to restore mobility to make transfers in bed less labored. Patient presents with increased R hip flexion strength 4+/5 to be able to perform reciprocal stairs at home. Treatment Plan: Modalities to reduce pain, spasms and effusion. Manual therapy to restore motion and function. Therapeutic exercise to improve strength and flexibility. Neuromuscular re-education for posture and balance. Therapeutic activities to return to functional activities of daily living. Electronically signed by: Madi Ramos, PT, DPT Please sign and return to therapist. Thank you for your referral.
--- NOTE | 2024-06-16 13:49 | MHC.PT.DC ---
[facility] [place] Office [place] Office [place] Office [address] Colleen Dyer [address] [phone] F: [phone] F: [phone] F: [phone] F: [phone] Physical Therapy Discharge Report Diagnosis: back pain (MD Dx) lumbar radiculopathy R LE with hx of lumbar laminectomy L5-S1 2007 (PT Dx) RS Date of Surgery: Date of Evaluation: 05/08/24 Date of Discharge: 06/16/24 Treatments to Date: 1 Cancellations to Date: 2 No Shows to Date: 4 Discharge Status: Visit Non-compliance Discharge Summary: Mac only attended initial evaluation and he did not show for any follow-up appointment. Unable to determine effectiveness of PT interventions on patient condition due to visit non-compliance. He is discharged at this time. Electronically signed by: Madi Ramos, PT, DPT Please sign and return to therapist. Thank you for your referral.
== END 2024-06-16 13:50 | disposition home or self-care (01) ==
LOC: HO.PT 13:58
PROVIDERS: PCP Internal Medicine; Visit Provider Internal Medicine
DX: M54.9 Dorsalgia, unspecified (principal)
CPT/HCPCS: 97110; 97162; 97535

== ENCOUNTER 2024-05-27 09:27 | Outpatient (AMB) | payer MEDICARE, MEDICAID, SELFPAY ==
--- NOTE | 2024-05-27 09:28 | A.OFFVIS_ITS ---
VS Expanded 05/27/24 09:35 BP 147/87 H Blood Pressure Location Rt brachial Blood Pressure Position Sitting Pulse 74 Pulse Source Pulse Oximeter Temp 98.4 F Temperature Source Temporal Artery Scan Pulse Oximetry 100 Oxygen Delivery Method Room Air Height 5 ft 8 in Weight 197 lb 12.8 oz BMI 30.1 Body Fat % 26.2 Body Fat Mass 51.8 Fat Free Mass 146.0 Visceral Fat Rating 14.0 Body Water % 52.2 Body Water Mass 103.2 Muscle Mass/Score 138.6 Basal Metabolic Rate/Score 1,930 Intake Visit Reasons: (OV) LUQ pain per Dr. Aguilar Public Health Technician Required: No Allergies morphine [MORPHINE] Allergy (Severe, Verified 05/27/24 09:36) SHORTNESS OF BREATH, resp depression adhesive tape [ADHESIVE TAPE] Allergy (Intermediate, Verified 05/27/24 09:36) RASH flurandrenolide Allergy (Intermediate, Verified 05/27/24 09:36) Rash metformin [METFORMIN] Allergy (Intermediate, Verified 05/27/24 09:36) RASH Medication List - Last Reconciled 05/27/24 by MARÍA ELENA Lockhart dulaglutide (Trulicity) 1.5 mg (0.5 mL) subcut QWEEK fluticasone propionate 50 mcg/actuation (Flonase Allergy Relief) 1 spray intranasal DAILY pantoprazole 40 mg PO DAILY tadalafil 5 mg PO DAILY 90 days tamsulosin 0.4 mg PO BEDTIME 90 days HPI Comments Details: 59-year-old male with a history of gastric banding, transition to gastric bypass and back in 2016. Known to our service for left upper quadrant pain in 09/23/2023 culminating in upper endoscopy revealing mild gastritis. At that time, he had not been following any meal plan. Once he was placed on a high- protein liquid diet and given a three-month course of PPI, he did well and pain resolved. This has since recurred. He additionally states he has discomfort in the left upper quadrant approximately 20 minutes after eating. He also reports fullness in the left upper quadrant that improves with bowel movements. He recently had exacerbation of back pain necessitating antispasmodics and NSAID use. He was seen in the emergency department in mid March necessitating a CT scan that was negative for any significant abnormality. Weight today is 197.8 lb with a BMI of 30.1. He recently started pantoprazole again approximately 10 days ago and noticed a significant improvement in his abdominal pain. Additionally, he was taking stool softeners but this completed approximately 2 weeks ago and has noted a hardening of his stools since stopping this medication. Meal plan: 1 egg apple, banana, canaloupe, berries boiled plantains and root veg, red meat, chicken, (palm sized) oatmeal, cereal/lactaid milk Exercise plan: Treadmill at home. 30 min daily, 2.5-3 mi, speed 5 , incline 3. PFSH Medical History Vasomotor rhinitis History of benign bladder tumor Acute appendicitis Failed cervical fusion Anxiety Thoracic radiculopathy due to degenerative joint disease of spine Dyshidrotic eczema Onychomycosis Myofascial pain syndrome Postlaminectomy syndrome of lumbar region Radiculopathy, lumbar region Cervical vertebral fusion Surgical History H/O colonoscopy (~01/12/17) History of laparoscopic appendectomy (09/17/21) S/P laparoscopic appendectomy History of gastric bypass History of neck surgery History of bariatric surgery History of lumbar fusion History of lumbar laminectomy Family History Mother Liver disease Father Diabetes Sister Leukemia Social History Household Members: Spouse Housing: Apartment Alcohol intake: current Alcohol intake frequency: does not drink Patient Tobacco Use Status: Never used Tobacco e-Cigarette/Vaping Use: Never Used Second Hand Smoke Exposure: No service: No Current occupational status: disabled Cognitive needs: No Hearing needs: No Vision needs: Yes (Glasses) Physical Exam Const General: healthy appearing and no acute distress Resp Effort & Inspection: normal respiratory effort Auscultation: clear to auscultation bilaterally Cardio Rate: regular rate Rhythm: regular rhythm GI Auscultation: normal bowel sounds Extrem General: Yes normal to inspection Assessment & Plan Assessment & Plan (1) LUQ abdominal pain: Code(s): R10.12 - Left upper quadrant pain Category: Medical Plan: This in the setting of known history of gastritis, improved with just 10 days of restarting PPI. He will continue as such. Additionally, change meal plan: Celebrate rebuild, 1 scoop with 8 oz of Lactaid milk over 2 hours Celebrate protein bar over 2 hours, x2 Meal with 6 forks protein and 4 forks vegetables Exercise: Using his treadmill at home, speed 4.5, incline 2-8 with a goal of burning 300 calories daily. Return to clinic 1 month. Given information regarding right BMI shubham (2) Constipation: Code(s): K59.00 - Constipation, unspecified Category: Medical Plan: Add senna, 2 at HS. Medications: New sennosides (senna) 17.2 mg (2 x 8.6 mg) PO BEDTIME PRN 180 tabs 3RF constipation
[2024-05-27 09:35] VITALS: BP 147/87; PULSE 74; TEMP 36.9; O2SAT 100; BMI 30.1
== END 2024-05-27 10:14 | disposition home or self-care (01) ==
PROVIDERS: PCP Internal Medicine; Visit Provider Physician Assistant Surgical
DX: R10.12 Left upper quadrant pain (principal); K59.00 Constipation, unspecified
CPT/HCPCS: 99214; G2211

== ENCOUNTER → 2024-05-27 09:27 | Outpatient (BNVA) | payer MEDICARE, MEDICAID, SELFPAY | PROVIDERS: PCP Internal Medicine; Visit Provider Physician Assistant Surgical | DX: R10.12 Left upper quadrant pain (principal); K59.00 Constipation, unspecified | CPT/HCPCS: 99212 ==

== ENCOUNTER 2024-07-01 10:01 | Outpatient (AMB) | payer MEDICARE, MEDICAID, SELFPAY ==
[2024-07-01 10:04] VITALS: BP 129/86; PULSE 71; BMI 29.6
--- NOTE | 2024-07-01 10:04 | MHC.OFFVIS ---
Vital Signs 07/01/24 10:04 Height 5 ft 8 in Weight 194 lb 8 oz BMI 29.6 BP 129/86 Blood Pressure Location Lt brachial Position Sitting Pulse 71 Intake Visit Reasons: (OV) LUQ pain per Dr. Aguilar Intake Note: Follow-up feeling good Roaster Supervisor Required: No Allergies morphine [MORPHINE] Allergy (Severe, Verified 05/27/24 09:36) SHORTNESS OF BREATH, resp depression adhesive tape [ADHESIVE TAPE] Allergy (Intermediate, Verified 05/27/24 09:36) RASH flurandrenolide Allergy (Intermediate, Verified 05/27/24 09:36) Rash metformin [METFORMIN] Allergy (Intermediate, Verified 05/27/24 09:36) RASH Medication List - Last Reconciled 07/01/24 by MARÍA ELENA Lockhart dulaglutide (Trulicity) 1.5 mg (0.5 mL) subcut QWEEK fluticasone propionate 50 mcg/actuation (Flonase Allergy Relief) 1 spray intranasal DAILY pantoprazole 40 mg PO DAILY sennosides (senna) 17.2 mg (2 x 8.6 mg) PO BEDTIME PRN tadalafil 5 mg PO DAILY 90 days tamsulosin 0.4 mg PO BEDTIME 90 days HPI Comments Details: 59-year-old male with a history of gastric banding, transition to gastric bypass back in 2017. Known to our service for left upper quadrant pain in 09/23/2023 culminating in upper endoscopy revealing mild gastritis. At that time, he had not been following any meal plan. Once he was placed on a high-protein liquid diet and given a three-month course of PPI, he did well and pain resolved. He is doing well. No further abdominal pain. Continues on pantoprazole. Weight today is 194.8 lb with a BMI of 29.6. He was given information re [employer] bmi shubham at his last visit Meal plan: 2 eggs orgain protein powder 1 scoop another shake pure protein bar meal 4 oz protein and 4 oz veg Exercise: Using his treadmill at home, speed 4.5, incline 2-8 30 min daily [facility] Medical History (Updated 05/27/24 @ 10:12 by MARÍA ELENA Lockhart) Vasomotor rhinitis History of benign bladder tumor Acute appendicitis Failed cervical fusion Anxiety Thoracic radiculopathy due to degenerative joint disease of spine Dyshidrotic eczema Onychomycosis Myofascial pain syndrome Postlaminectomy syndrome of lumbar region Radiculopathy, lumbar region Cervical vertebral fusion Surgical History (Updated 07/01/24 @ 10:51 by MARÍA ELENA Lockhart) H/O colonoscopy (~01/12/17) History of laparoscopic appendectomy (09/17/21) S/P laparoscopic appendectomy History of gastric bypass History of neck surgery History of bariatric surgery History of lumbar fusion History of lumbar laminectomy Family History Mother Liver disease Father Diabetes Sister Leukemia Social History Household Members: Spouse Housing: Apartment Alcohol intake: current Alcohol intake frequency: does not drink Patient Tobacco Use Status: Never used Tobacco e-Cigarette/Vaping Use: Never Used Second Hand Smoke Exposure: No service: No Current occupational status: disabled Cognitive needs: No Hearing needs: No Vision needs: Yes (Glasses) Physical Exam Vital Signs: Last Vital Signs Pulse 71 07/01/24 10:04 BP 129/86 07/01/24 10:04 BMI result Body Mass Index 29.6 Const General: healthy appearing and no acute distress Resp Effort & Inspection: normal respiratory effort Auscultation: clear to auscultation bilaterally Cardio Rate: regular rate Rhythm: regular rhythm GI Auscultation: normal bowel sounds Extrem General: Yes normal to inspection Assessment & Plan Assessment & Plan (1) History of gastric bypass: Code(s): Z98.84 - Bariatric surgery status Category: Surgical Plan: Overall, patient is doing well. Satisfied and no longer having any abdominal pain. He remains on PPI and multivitamin. He was encouraged to follow the right BMI shubham. encouraged to track his calories while exercising on the treadmill with a goal of burning 400 per day. We will have him return to the office as scheduled. Coding Level of Care Code Est Pt Level 3 (41535) Complex EM visit Add On G2211 Diagnoses History of gastric bypass Z98.84
== END 2024-07-01 10:56 | disposition home or self-care (01) ==
PROVIDERS: PCP Internal Medicine; Visit Provider Physician Assistant Surgical
DX: R10.12 Left upper quadrant pain (principal); Z98.84 Bariatric surgery status
CPT/HCPCS: 99213; G2211

== ENCOUNTER → 2024-07-01 10:01 | Outpatient (BNVA) | payer MEDICARE, MEDICAID, SELFPAY | PROVIDERS: PCP Internal Medicine; Visit Provider Physician Assistant Surgical | DX: Z98.84 Bariatric surgery status (principal) | CPT/HCPCS: 99212 ==

== ENCOUNTER 2024-11-19 08:43 | Outpatient (AMB) | payer MEDICARE, MEDICAID, SELFPAY ==
--- NOTE | 2024-11-19 08:47 | MHC.PC.OV ---
Vital Signs 11/19/24 08:48 Height 5 ft 8 in Weight 196 lb BMI 29.8 BP 120/80 Blood Pressure Location Lt brachial Position Sitting Pulse 54 Pulse Source Pulse Oximeter Temp 97.1 F Temp Source Temporal Artery Scan Pulse Oximetry (%) 99 Oxygen Delivery Method Room Air Intake Visit Reasons: 3mth f/u/chronic pain omar from 07/23 Intake Note: Patient is here to follow up on Chronic pain, DM. Duck Farmer Required: No Other Sports Coach Or Instructor: Present Accompanied by: Spouse Allergies morphine (MORPHINE) Allergy (Severe, Verified 11/19/24 08:48) SHORTNESS OF BREATH, resp depression adhesive tape (ADHESIVE TAPE) Allergy (Intermediate, Verified 11/19/24 08:48) RASH flurandrenolide Allergy (Intermediate, Verified 11/19/24 08:48) Rash metformin (METFORMIN) Allergy (Intermediate, Verified 11/19/24 08:48) RASH Tobacco use date assessed: 11/19/24 Dental Screening Dental Screen Date: 11/19/24 Did you have a dental visit in the last 12 months?: Yes Did you have a dental problem in the last 6 months where you did not have access to dental care?: No Was dental information given to patient?: Patient has dentist [facility] Medical History (Updated 11/19/24 @ 09:25 by Dominic Evans MD) Vasomotor rhinitis History of benign bladder tumor Acute appendicitis Failed cervical fusion Anxiety Thoracic radiculopathy due to degenerative joint disease of spine Dyshidrotic eczema Onychomycosis Myofascial pain syndrome Postlaminectomy syndrome of lumbar region Radiculopathy, lumbar region Cervical vertebral fusion Surgical History H/O colonoscopy (~01/12/17) History of laparoscopic appendectomy (09/17/21) S/P laparoscopic appendectomy History of gastric bypass History of neck surgery History of bariatric surgery History of lumbar fusion History of lumbar laminectomy Family History Mother Liver disease Father Diabetes Sister Leukemia Social History Household Members: Spouse Housing: Apartment Alcohol intake: current Alcohol intake frequency: does not drink Patient Tobacco Use Status: Never used Tobacco e-Cigarette/Vaping Use: Never Used Second Hand Smoke Exposure: No service: No Current occupational status: disabled Cognitive needs: Yes (Cane) Hearing needs: No Vision needs: Yes (Glasses) Questionnaire PHQ-9 Over the last 2 weeks, how often have you been bothered by any of the following problems? 1. Little interest or pleasure in doing things: not at all 2. Feeling down, depressed, or hopeless: not at all 3. Trouble falling or staying asleep, or sleeping too much: not at all 4. Feeling tired or having little energy: not at all 5. Poor appetite or overeating: not at all 6. Feeling bad about yourself - or that you are a failure or have let yourself or your family down: not at all 7. Trouble concentrating on things, such as reading the newspaper or watching television: not at all 8. Moving or speaking so slowly that other people could have noticed. Or the opposite - being so fidgety or restless that you have been moving around a lot more than usual: not at all 9. Thoughts that you would be better off or of hurting yourself in some way: not at all Total score: 0 Depression Screening Interpretation: Negative Depression Screening Done: Yes Source: Developed by Drs. Deon Subramanian, Criselda Rdz, Francisco J Farooq and colleagues, with an educational nasima from [employer]. Thrive Questionnaire Date Thrive assessed: 11/19/24 I am a: Patient What is your living situation today?: I have a steady place to live Within the past 12 months, did the food you bought not last and you didn't have the money to get more?: Often true Within the past 12 months, did you worry whether your food would run out before you got money to buy more?: Often true Do you have trouble paying for medicines?: I choose not to answer this question Do you have trouble getting transportation to medical appointments?: I choose not to answer this question Do you have trouble paying your heating and electricity bill?: I choose not to answer this question Do you have trouble taking care of your child, family member or friend?: No Do you have trouble with day-to-day activities such as bathing, preparing meals, shopping, managing finances, etc.?: Yes Are you currently unemployed and looking for a job?: No Are you interested in more education?: No Please select the resources that you would like help with: None Currently or been in a relationship where the following occur: I choose not to answer THRIVE Score: 2 AUDIT C Alcohol Use Questionnaire (AUDIT-C) 1. How often do you have a drink containing alcohol?: Never Total Score: 0 DANK-7 AMB Questionnaire DANK-7 Date DANK - 7 assessed: 11/19/24 Feeling nervous, anxious, or on edge: 0 = Not at all Not being able to stop or control worryin = Not at all Worrying too much about different things: 0 = Not at all Trouble relaxin = Not at all Being so restless that it is hard to sit still: 0 = Not at all Becoming easily annoyed or irritable: 0 = Not at all Feeling afraid as if something awful might happen: 0 = Not at all Total DANK-7 score (0-4 normal; 5-9 mild; 10-14 moderate; 15-21 severe): 0 Source: Developed by Drs. Deon Subramanian, Criselda Rdz, Francisco J Farooq and colleagues, with an educational nasima from [employer]. Physical exam (Primary Care) Vital Signs: Last Vital Signs Temp 97.1 F 11/19/24 08:48 Pulse 54 11/19/24 08:48 BP 120/80 11/19/24 08:48 Pulse Ox 99 11/19/24 08:48 Oxygen Delivery Method Room Air 11/19/24 08:48 BMI result Body Mass Index 29.8 Tobacco/Smoking Status: Tobacco use Status Tobacco use date assessed 11/19/24 11/19/24 08:58 Patient Tobacco Use Status Never used Tobacco 11/19/24 08:58 e-Cigarette/Vaping Use Never Used 11/19/24 08:58 PHQ-9: PHQ-9 Score PHQ-9: Total score 0 11/19/24 08:58 Depression Screening Interpretation: Negative Thrive Assessment: Date of Thrive Assessment Date Thrive assessed 11/19/24 11/19/24 08:58 Currently or been in a relationship where the following occur: I choose not to answer Results AMB Hemoglobin A1c AMB Hemoglobin A1c 6.1 % Last Edit by ALYSSA Rocha on 11/19/24 09:04 Results Reviewed Results Reviewed: Laboratory Last Values Hgb A1c (Clinic) 6.1 % (4.0-6.0) H 11/19/24 08:47 Coding Level of Care Code Est Pt Level 4 (32040) Complex EM visit Add On G2211 Diagnoses Type 2 diabetes mellitus without complication E11.9 Radiculopathy, lumbar region M54.16 Assessment & Plan Assessment & Plan (1) Type 2 diabetes mellitus without complication: Code(s): E11.9 - Type 2 diabetes mellitus without complications Category: Medical Plan: A1c in range. Continue current medications (2) Radiculopathy, lumbar region: Code(s): M54.16 - Radiculopathy, lumbar region Category: Medical Plan: History of Present Illness - The patient is a 59-year-old male presenting with arthritis and numbness in shoulders. - Arthritis: The patient reports having arthritis, particularly affecting the spine, which causes pain radiating to the legs. - Numbness in shoulders: The patient has experienced numbness in both shoulders for almost two months, with the sensation extending down the arms. - Functional status: The patient uses a cane for ambulation and sometimes requires assistance with activities of daily living, such as showering. - Driving and shopping: The patient is able to drive during the day and goes grocery shopping, although he relies on a internal medicine physician assistant (WEB OPERATIONS ADMINISTRATOR) to carry groceries into the house. Social History - Functional status: The patient uses a cane for ambulation and sometimes requires assistance with activities of daily living, such as showering. - Driving and shopping: The patient is able to drive during the day and goes grocery shopping, although he relies on a internal medicine physician assistant (WEB OPERATIONS ADMINISTRATOR) to carry groceries into the house. Review of Systems - Musculoskeletal: Reports numbness in both shoulders for almost two months, pain radiating to legs due to arthritis. - Neurological: Denies driving at night. Physical Exam General: Cooperative and healthy appearing Nutritional Appearance: Well nourished Orientation/consciousness: Patient oriented x3 Limitations: No limitations Head: Normal to inspection General: Appearance normal, both eyes and all related structures Neck: Normal visual inspection Chest: Normal palpation of entire chest wall Respiratory: N ormal respiratory effort Neurology: Patient oriented x3, reports numbness in both shoulders extending down, difficulty sitting up without assistance. Back: No spinal tenderness, SLR is negative. Results - Labs: Blood work shows good sugar levels. Plan 1. Arthritis - Plan includes exercise, physical therapy, and use of a heating pad. - Consideration of prescribing a muscle relaxant. 2. Numbness In Shoulders - No specific plan discussed for numbness in shoulders. Discussion Notes I discussed with the patient the presence of arthritis and the associated symptoms. We talked about the importance of exercise and physical therapy as part of the management plan. I also mentioned the potential use of a heating pad and the possibility of prescribing a muscle relaxant to help alleviate symptoms. We agreed to continue monitoring the condition and to follow up as needed. Patient Instructions - Continue taking prescribed medications as directed. - Engage in regular exercise and attend physical therapy sessions. - Use a heating pad to help manage arthritis symptoms. - Follow up with the doctor if symptoms worsen or do not improve. Orders: Orders Basic Metabolic Panel Today E11.9 - Type 2 diabetes mellitus without complications, M54.16 - Radiculopathy, lumbar region Thyroid Stimulating Hormone Today E11.9 - Type 2 diabetes mellitus without complications, M54.16 - Radiculopathy, lumbar region UA and rflx microscopic Today E11.9 - Type 2 diabetes mellitus without complications, M54.16 - Radiculopathy, lumbar region AMB Hemoglobin A1c Today E11.9 - Type 2 diabetes mellitus without complications Complete Blood Count no Diff Today E11.9 - Type 2 diabetes mellitus without complications, M54.16 - Radiculopathy, lumbar region Lipid Panel Today E11.9 - Type 2 diabetes mellitus without complications, M54.16 - Radiculopathy, lumbar region Liver Panel Today E11.9 - Type 2 diabetes mellitus without complications, M54.16 - Radiculopathy, lumbar region Microalbumin, Random (w Creat) Today E11.9 - Type 2 diabetes mellitus without complications, M54.16 - Radiculopathy, lumbar region
[2024-11-19 08:48] VITALS: BP 120/80; PULSE 54; TEMP 36.2; O2SAT 99; BMI 29.8
--- OUTSIDE RECORDS SUMMARY | 2024-11-19 08:53 | XMS_ITS | Data Portability ---
Author Organization ID - [facility], Allergy Address [address] [address] Care Team Providers Care Catalogue Illustrator Name Role Phone DEBBY, KARTIK Primary Care Provider Assessment Encounter Date Assessment Date Assessment LastModified by Organization Details LastModified Time 10/02/2024 10/02/2024 59yo male presents with for evaluation of chronic nasal congestion x2 years. He has been using daily fluticasone with minimal relief. Nasal examination demonstrates inferior turbinate hypertrophy, left septal spur, and mucoid rhinorrhea. Nasal endoscopy without purulence, polyps, or mass. Recommend allergy testing and oxymetazoline cessation. Will obtain CT sinus. Patient will return for follow up after testing for reevaluation. Patient agrees with the plan and all questions were answered. [email or web address] Not available 10/02/2024 14:34:30 Plan of Treatment Reminders Order Date Submit Date Provider Last Modified By Organization Details Last Modified Time Details Appointments Test Results 15 2024 10:15A M PAPITO MONTE PA-C Not available Not available Not available Lab None recorded. Referral None recorded. Procedures allergy testing, skin prick (PROC) 2024 025 [email or web address] Not available 10/19/2024 11:49:02 intraderm al allergy skin testing (PROC) 2024 025 [email or web address] Not available 10/19/2024 11:49:09 pulmonary function test procedure (PROC) 2024 025 [email or web address] Not available 10/19/2024 11:49:16 pulse oximetry (PROC) 2024 025 [email or web address] Not available 10/19/2024 11:49:25 Surgeries None recorded. Imaging CT, sinuses, w/o contrast 2024 025 [email or web address] [facility] [place], [address], [address], [place], [address], 10/13/2024 08:16:26 Medication Orders None recorded. Patient TargetsNo targets recorded. Patient Instructions Encounter Date Encounter Id Patient Instructions Last Modified By Organization Details Last Modified Time 10/19/2024 [id number] Nursing Documentation for Allergy Testing: Ordering Provider Dr. Macias Weight:lbs: kg: PFT Yes With Bronchodilator no approval needed to proceed with allergy testing? ok'd testing History of Asthma:No Asthma Meds: Last used: Asthma exacerbated by: Chance that : N/A Fear of needles: No Regular medications reviewed in Computer: No Medication allergies: Reviewed Antihistamine use: No Medications used: Food Allergies: n/a Any foods make your mouth feeling itchy: No If yes: History of severe reaction where had to go to ER? No If yes details: Type of heat in home: Baseboard Pets: No If yes: Smoker: Never If former smoker-how much / day for how long When quit years ago Smoking now-how much /day for how long Occupation/Social History: disable Symptoms having: Other If other: stuffy blocked nose Frequency Year Round Spirometry Contraindications: Heart attack in the last 3 months: No Major surgery in last 3 months: No Detached retina(serious eye issues) in last 2 months: No Hospitilization in last month: No Proceed with PFT Yes approval needed: No Nursing Notes: Pt tolerated test well Yes Benadryl cream to test sites Yes Patient became syncopal-placed in supine position No Large reactions to MQT, reschedule IDT for a different date No Other: Written by: Tierra Shanks Not available 10/19/2024 11:53:01 Reason for Referral None Reported. Results Created Date Observation Date Name Description Value Unit Range Abnormal Flag Note LastModifiedBy Organization Detail LastModifiedTime 10/14/1910/09/2024 CT, sinus es, w/o contr ast No observ ation record ed. [email or web address] [facility] [place] [address] [facility] [address], [place], [id number], 10/14/2024 11:01:02 10/20/19 25 denies metry testi ng* No observ ation record ed. [email or web address] Not Available 2024 09:26:40 Result Notes None recorded. Problems Name Problem SNOMED Code Status Onset Date Resolution Date Notes Provider Name and Address Organization Details Recorded Time Nasal congestion 84000981 Active 2024 PAPITO MONTE PA-C [address], [place], [id number], [facility] - [facility] 14:33:45 Allergic rhinitis 40340252 Active 2024 PAPITO MONTE PA-C [address], [place], [id number], [facility] [place] 14:33:51 Non-allergi c rhinitis 412366009340 Active 2024 PAPITO MONTE PA-C [address], [place], [phone], [facility] - [facility] [place] 14:33:51 Seasonal allergic rhinitis 899669881 Active 2024 PAPITO MONTE PA-C [address], [place], [id number], [facility] [place] 14:33:51 Chronic sinusitis 78567149 Active 2024 PAPITO MONTE PA-C [address], [place], [id number], [facility] [place] 14:34:03 Perennial allergic rhinitis 148024282 Active 2024 ALYSSA DOTSON [address], [place], [id number], [facility] [place] 09:23:51 Allergic rhinitis caused by pollen 63777451 Active [address] [facility], [place], [address], [facility] 09:41:24 Problem Notes None recorded. Procedures Surgical History Date Name Laterality Status Provider Name and Address Organization Details Recorded Time Allergy Testing-Full completed ALYSSA DOTSON [address] [facility],[place] [place] [address], [place], [address], [facility] 10/19/2024 11:51:10 NasalEndosco py_DP completed PAPITO MONTE PA-C [address] [facility],[place] [address], [place], [address], [facility] 10/02/2024 14:35:19 Imaging Results None recorded. Procedure Notes None recorded. Medical Equipment None Reported. Medications Name Sig Start Date Stop Date Status Note LastModified by Organization Details LastModified Time cyclobenzapr ine 10 mg tablet TAKE 1 TABLET BY MOUTH AT BEDTIME active Not Available Not Available No t Available senna 8.6 mg tablet TAKE 2 TABLETS BY MOUTH EVERY NIGHT AT BEDTIME NEEDED FOR CONSTIPATIO N active Not Available Not Available No t Available meloxicam 15 mg tablet TAKE 1 TABLET BY MOUTH DAILY active Not Available Not Available Not Available tamsulosin 0.4 mg capsule TAKE 1 CAPSULE BY MOUTH AT BEDTIME active Not Available Not Available No t Available pantoprazole 40 mg tablet,delay ed release TAKE 1 TABLET BY MOUTH DAILY active Not Available Not Available Not Available docusate sodium 100 mg capsule TAKE 1 CAPSULE BY MOUTH TWICE DAILY active Not Available Not Available No t Available fluticasone propionate 50 mcg/actuatio n nasal spray,suspen alivia SHAKE LIQUID AND USE 1 SPRAY IN EACH NOSTRIL DAILY active Not Available Not Available No t Available tadalafil 5 mg tablet TAKE ONE TABLET BY MOUTH EVERY DAY FOR SEXUAL ACTIVITY active Not Available Not Available No t Available Trulicity 1.5 mg/0.5 mL subcutaneous pen injector ADMINISTER 1.5 MG UNDER THE SKIN EVERY WEEK active Not Available Not Available No t Available Vitals Date Recorded Body height Body mass index (BMI) Body weight Provider Name and Address Organization Details Last Updated DateTime 10/02/2024 172.72 cm 29.2 kg/m2 58117.74 g Tahira Tracee [facility] - [facility] 10/02/2024 14:05:13 Date Recorded Body height Body mass index (BMI) Body weight Oxygen saturation Oxygen saturation in Arterial blood by Pulse oximetry Heart rate Systolic And Diastolic Provider Name and Address Organization Details Last Updated DateTime 5 172.72 cm 29.2 kg/m2 90864.7 4 g 99 % 99 % 64 /min 106/72 mm[Hg] ALYSSA DOTSON [address], [address], [place] - [facility] 09:19:52 Social History None recorded. Functional Status None recorded. Mental Status None recorded. Family History Nothing Reported. Medical History Condition Response Diabetes Y Arthritis Y Past Encounters Encounter ID Performer Location Encounter Start Date Encounter Closed Date Diagnosis/Indication Diagnosis SNOMED-CT Code Diagnosis ICD10 Code Diagnosis Note [id number] PAPITO MONTE PA-C [facility] [address] [address] 10/02/2024 14:00:55 10/02/2024 14:31:23 Nasal congestion 25624781 R09.81 [id number] ALYSSA DOTSON [facility] [address] [place] [address] 10/19/2024 09:02:30 10/19/2024 11:54:22 Allergic rhinitis caused by pollen 21629493 J30.1 Health Concerns Section Related Observation LastModified by Organization Detai ls LastModified Time None Recorded Concern Status LastModified by Organization Details LastModified Time None Recorded Advance Directives Directive None Recorded Payers Insurance Date Sequence Insurance Name Policy Number Policy Aleman Covered Member ID Aleman Member ID Guarantor Name 10/15/2024 1 [place] [employer] Mac Baires [id number] Mac Baires 11/12/2024 2 [place] [facility] Mac Nguyen [id number] Mac Baires Notes Date Note Type Note Provider Name and Address Organization Details Recorded Time 10/02/2024 text/html 59-year-old male presents for evaluation of chronic nasal congestion for two years. This is constant but worse at night. Denies runny nose, anosmia, or facial pain. Reduced sense of smell, but can smell food and cigarette smoke. Intermittent left-sided ear pressure. He used to sneeze frequently in his last apartment. Uses fluticasone daily, Afrin nightly. No antibiotic recently, but did notice improvement in nasal congestion after non-related post-surgical antibiotic. No known history of environmental allergies. No sinus history. No smoking history. He has a history of bariatric surgery, and is on daily PPI prescribed to gastroenterology. History of herpetic neuralgia and occasional headache. PAPITO MONTE PA-C [address] [place] [address], [place], [address], [facility] - [facility] 10/02/2024 14:48:55
== END 2024-11-19 09:18 | disposition home or self-care (01) ==
LOC: HO.HMCH 08:43
PROVIDERS: PCP Internal Medicine; Visit Provider Internal Medicine
DX: E11.9 Type 2 diabetes mellitus without complications (principal); M54.16 Radiculopathy, lumbar region

== ENCOUNTER → 2024-11-19 08:43 | Outpatient (BNVA) | payer MEDICARE, MEDICAID, SELFPAY | PROVIDERS: PCP Internal Medicine; Visit Provider Internal Medicine | DX: E11.9 Type 2 diabetes mellitus without complications (principal); M54.16 Radiculopathy, lumbar region | CPT/HCPCS: 83036; 99212 ==

== ENCOUNTER 2024-12-23 09:00 | Outpatient (AMB) | payer MEDICARE, MEDICAID, SELFPAY ==
--- NOTE | 2024-12-23 09:15 | MHC.OFFVISWM ---
VS Expanded 12/23/24 09:16 Height 5 ft 8 in Weight 186 lb BMI 28.3 Intake Visit Reasons: TV) LUQ pain per Dr. Aguilar Allergies morphine (MORPHINE) Allergy (Severe, Verified 11/19/24 08:48) SHORTNESS OF BREATH, resp depression adhesive tape (ADHESIVE TAPE) Allergy (Intermediate, Verified 11/19/24 08:48) RASH flurandrenolide Allergy (Intermediate, Verified 11/19/24 08:48) Rash metformin (METFORMIN) Allergy (Intermediate, Verified 11/19/24 08:48) RASH HPI Comments Details: 59-year-old male with a history of gastric banding, transition to gastric bypass back in 2017. Known to our service for left upper quadrant pain in 09/23/2023 culminating in upper endoscopy revealing mild gastritis. At that time, he had not been following any meal plan. Once he was placed on a high-protein liquid diet and given a three-month course of PPI, he did well and pain resolved. He is doing well. No further abdominal pain. Continues on pantoprazole. Weight today is 186 lb with a BMI of 28.3. Constipation resolved w prn senna. He was given information re [employer] bmi shubham at his last visit Meal plan: 1 eggs w 1 egg white chicken or tuna at lunch pure protein bar meal 4 oz protein and 4 oz veg drinking 50 oz daily Exercise: Using his treadmill at home, speed 4.5, incline 2-8 30 min twice daily, can't track calories [facility] Medical History (Updated 11/19/24 @ 09:25 by Dominic Evans MD) Vasomotor rhinitis History of benign bladder tumor Acute appendicitis Failed cervical fusion Anxiety Thoracic radiculopathy due to degenerative joint disease of spine Dyshidrotic eczema Onychomycosis Myofascial pain syndrome Postlaminectomy syndrome of lumbar region Radiculopathy, lumbar region Cervical vertebral fusion Surgical History H/O colonoscopy (~01/12/17) History of laparoscopic appendectomy (09/17/21) S/P laparoscopic appendectomy History of gastric bypass History of neck surgery History of bariatric surgery History of lumbar fusion History of lumbar laminectomy Family History Mother Liver disease Father Diabetes Sister Leukemia Social History Household Members: Spouse Housing: Apartment Alcohol intake: current Alcohol intake frequency: does not drink Patient Tobacco Use Status: Never used Tobacco e-Cigarette/Vaping Use: Never Used Second Hand Smoke Exposure: No service: No Current occupational status: disabled Cognitive needs: Yes (Cane) Hearing needs: No Vision needs: Yes (Glasses) Telehealth Telehealth Telehealth Platform: Telephone Location of provider rendering services: practice address Location of patient: address on file Patient Identification confirmed using: Name, : Yes Telehealth method: voice only Patient verbally consented to treatment: Yes Patient verbally consented to billing insurance company: Yes Patient informed of any privacy concerns related to visit: Yes Minutes spent on Phone/Video with Pt.: 15 Assessment & Plan Assessment & Plan (1) History of gastric bypass: Code(s): Z98.84 - Bariatric surgery status Category: Medical Plan: Patient is doing very well. Exercising regularly as he is able. He is without any abdominal pain, nausea, vomiting, constipation. He has been dealing with his who has been very sick requiring inpatient rehab. He will call the office when he is able to follow-up. Medications: Refilled sennosides (senna) 17.2 mg (2 x 8.6 mg) PO BEDTIME PRN 180 tabs 3RF constipation
[2024-12-23 09:16] VITALS: BMI 28.3
--- OUTSIDE RECORDS SUMMARY | 2024-12-23 10:10 | XMS_ITS | Encounter Summary ---
Author Organization [facility] Address [address] [address] [facility] [address] [place] [address] Phone Care Team Providers Care Neonatal Intensive Care Nurse Name Role Phone Carlos Hernandez Primary Care Provider [phone] Dominic Evans MD Primary Care Provid er Encounter Details Date Type Department Care Team (Late st Contact Info) Description 02/06/2022 Procedure Pass [facility], Ct Scan - [facility] [address] [place] [address] Social History Tobacco Use Types Packs/Day Years Used Date Smoking Tobacco: Never Smokeless Tobacco: Never Alcohol Use Standard Drinks/Week Comments Never 0 (1 standard drink = 0.6 oz pur e alcohol) Sex and Gender Information Value Date Recorded Sex Assigned at Male 06/03/2019 10:19 AM EST Legal Sex Male 9:39 PM EDT Gender Identity Male 06/03/2019 10:19 AM EST Sexual Orientation Not on file documented as of this encounter Functional Status * Calculated C-SSRS Risk Score (Lifetime/Recent) Answer Date of Assessment Author No Risk Indicated 02/06/2022 8:19 PM EDT Orlando Salcedo RN * [place] Suicide Severity Rating Scale (Screener/Recent Self-Report) Question Answer Date of Assessment Author 1. Wish to be (Past 1 Month) No 022 8:19 PM EDT Orlando Salcedo RN 2. Non-Specific Active Suici ora Thoughts (Past 1 Month) No 02/06/2022 8:19 PM EDT Orlando Salcedo RN 6. Suicidal Behavior (Lifetime) No 8:19 PM EDT Orlando Salcedo RN documented as of this encounter Plan of Treatment Not on file documented as of this encounter Visit Diagnoses Not on filedocumented in this encounter Additional Health Concerns Infection Onset Date Last Indicated Resolved Time CoV-Risk 09/28/2023 09/28/2023 10/09/2023 1:21 AM EDT documented as of this encounter Care Teams Neonatal Intensive Care Nurse Relationship Specialty Start Date End Date Carlos Hernandez DO [address] [place] [id number] PCP - General Family Medicine 06/03/19 05/08/22 Dominic Evans MD [address] [place] [address] PCP - General Internal Medicine 05/09/22 documented as of this encounter Additional Source Comments The information contained in this document represents components of the legal health record. It is not the complete legal health record.[facility]
== END 2024-12-23 09:36 | disposition home or self-care (01) ==
LOC: HO.HBS 09:26
PROVIDERS: PCP Internal Medicine; Visit Provider Physician Assistant Surgical
DX: E66.3 Overweight (principal); Z68.28 Body mass index [BMI] 28.0-28.9, adult; Z98.84 Bariatric surgery status
CPT/HCPCS: 99213

== ENCOUNTER 2025-02-10 14:10 | Outpatient (AMB) | payer MEDICARE, MEDICAID, SELFPAY ==
[2025-02-10 14:23] VITALS: BP 130/90; PULSE 66; RESP 18; TEMP 36.3; O2SAT 99; BMI 29.9
--- NOTE | 2025-02-10 14:23 | MHC.PC.OV ---
Vital Signs 02/10/25 14:23 Height 5 ft 8 in Weight 196 lb 6 oz BMI 29.9 BP 130/90 H Blood Pressure Location Lt brachial Position Sitting Respiration 18 Pulse 66 Pulse Source Pulse Oximeter Temp 97.3 F Temp Source Temporal Artery Scan Pulse Oximetry (%) 99 Oxygen Delivery Method Room Air Intake Visit Reasons: b/l arm numbness and severe back pain Property Maintenance Technician Required: No Accompanied by: Self / Same As Patient Allergies morphine (MORPHINE) Allergy (Severe, Verified 02/10/25 14:24) SHORTNESS OF BREATH, resp depression adhesive tape (ADHESIVE TAPE) Allergy (Intermediate, Verified 02/10/25 14:24) RASH flurandrenolide Allergy (Intermediate, Verified 02/10/25 14:24) Rash metformin (METFORMIN) Allergy (Intermediate, Verified 02/10/25 14:24) RASH Tobacco use date assessed: 02/10/25 Dental Screening Dental Screen Date: 02/10/25 Did you have a dental visit in the last 12 months?: No Did you have a dental problem in the last 6 months where you did not have access to dental care?: No Was dental information given to patient?: No HPI HPI Comments History of Present Illness Details The patient is a 59-year-old male presenting with persistent headache, cervical and lumbar radiculopathy, and post-surgical pain management. The headache has been present for one month, occurring daily and persisting throughout the day. The patient reports the headache started suddenly and is associated with stress due to his 's recent stroke and dementia diagnosis. Cervical radiculopathy symptoms include numbness and pain radiating from the neck to the shoulders and left side of the body. The patient underwent neck surgery in 2010, which initially resolved the numbness, but symptoms have recently worsened. Lumbar radiculopathy is characterized by severe pain radiating from the lower back to the right leg, exacerbated by prolonged sitting or standing. The patient has a history of back surgery and reports a bump on the back causing discomfort. The patient experiences stress-related symptoms, likely exacerbated by his 's health issues, contributing to his overall discomfort. [facility] Medical History Vasomotor rhinitis History of benign bladder tumor Acute appendicitis Failed cervical fusion Anxiety Thoracic radiculopathy due to degenerative joint disease of spine Dyshidrotic eczema Onychomycosis Myofascial pain syndrome Postlaminectomy syndrome of lumbar region Radiculopathy, lumbar region Cervical vertebral fusion Surgical History H/O colonoscopy (~01/12/17) History of laparoscopic appendectomy (09/17/21) S/P laparoscopic appendectomy History of gastric bypass History of neck surgery History of bariatric surgery History of lumbar fusion History of lumbar laminectomy Family History Mother Liver disease Father Diabetes Sister Leukemia Social History Household Members: Spouse Housing: Apartment Alcohol intake: current Alcohol intake frequency: does not drink Patient Tobacco Use Status: Never used Tobacco e-Cigarette/Vaping Use: Never Used Second Hand Smoke Exposure: No service: No Current occupational status: disabled Cognitive needs: Yes (Cane) Hearing needs: No Vision needs: Yes (Glasses) Questionnaire Thrive Questionnaire Date Thrive assessed: 11/19/24 I am a: Patient What is your living situation today?: I have a steady place to live Within the past 12 months, did the food you bought not last and you didn't have the money to get more?: Often true Within the past 12 months, did you worry whether your food would run out before you got money to buy more?: Often true Do you have trouble paying for medicines?: I choose not to answer this question Do you have trouble getting transportation to medical appointments?: I choose not to answer this question Do you have trouble paying your heating and electricity bill?: I choose not to answer this question Do you have trouble taking care of your child, family member or friend?: No Do you have trouble with day-to-day activities such as bathing, preparing meals, shopping, managing finances, etc.?: Yes Are you currently unemployed and looking for a job?: No Are you interested in more education?: No Please select the resources that you would like help with: None Currently or been in a relationship where the following occur: I choose not to answer THRIVE Score: 2 AUDIT C Alcohol Use Questionnaire (AUDIT-C) 3. How often do you have six or more drinks on one occasion?: Never Total Score: 0 DANK-7 AMB Questionnaire DANK-7 Date DANK - 7 assessed: 11/19/24 Source: Developed by Drs. Deon Subramanian, Criselda Rdz, Francisco J Farooq and colleagues, with an educational nasima from [employer]. Review of Systems Const Details: Positives besides what was mentioned in HPI are in BOLD Constitutional: No Weight Change, No Fever, No Chills, No Night Sweats, No Fatigue, No Malaise ENT/Mouth: No Hearing Changes, No Ear Pain, No Nasal Congestion, No Sinus Pain, No Hoarseness, No sore throat, No Rhinorrhea, No Swallowing Difficulty Eyes: No Eye Pain, No Swelling, No Redness, No Foreign Body, No Discharge, No Vision Changes Cardiovascular: No Chest Pain, No SOB, No PND, No Dyspnea on Exertion, No Orthopnea, No Claudication, No Edema, No Palpitations Respiratory: No Cough, No Sputum, No Wheezing, No Smoke Exposure, No Dyspnea Gastrointestinal: No Nausea, No Vomiting, No Diarrhea, No Constipation, No Pain, No Heartburn, No Anorexia, No Dysphagia, No Hematochezia, No Melena, No Flatulence, No Jaundice Genitourinary: No Dysmenorrhea, No DUB, No Dyspareunia, No Dysuria, No Urinary Frequency, No Hematuria, No Urinary Incontinence, No Urgency, No Flank Pain, No Urinary Flow Changes, No Hesitancy Musculoskeletal: No Arthralgias, No Myalgias, No Joint Swelling, No Joint Stiffness, No Back Pain, No Neck Pain, No Injury History Skin: No Skin Lesions, No Pruritis, No Hair Changes, No Breast/Skin Changes, No Nipple Discharge Neuro: No Weakness, No Numbness, No Paresthesias, No Loss of Consciousness, No Syncope, No Dizziness, No Headache, No Coordination Changes, No Recent Falls Psych: No Anxiety/Panic, No Depression, No Insomnia, No Personality Changes, No Delusions, No Rumination, No SI/HI/AH/VH, No Social Issues, No Memory Changes, No Violence/Abuse Hx., No Eating Concerns Heme/Lymph: No Bruising, No Bleeding, No Transfusions History, No Lymphadenopathy Endocrine: No Polyuria, No Polydipsia, No Temperature Intolerance Physical exam (Primary Care) Vital Signs: Last Vital Signs Temp 97.3 F 02/10/25 14:23 Pulse 66 02/10/25 14:23 Resp 18 02/10/25 14:23 BP 130/90 H 02/10/25 14:23 Pulse Ox 99 02/10/25 14:23 Oxygen Delivery Method Room Air 02/10/25 14:23 BMI result Body Mass Index 29.9 Tobacco/Smoking Status: Tobacco use Status Tobacco use date assessed 02/10/25 02/10/25 14:25 Patient Tobacco Use Status Never used Tobacco 02/10/25 14:25 e-Cigarette/Vaping Use Never Used 02/10/25 14:25 Thrive Assessment: Date of Thrive Assessment Date Thrive assessed 11/19/24 02/10/25 14:25 Currently or been in a relationship where the following occur: I choose not to answer Const Other: Pertinent findings are in BOLD GENERAL APPEARANCE NAD, activity normal for age, well developed/ well nourished, no cyanosis, pallor, or diaphoresis. EYES lids/conjunctiva normal. EARS/NOSE/THROAT Mucous membranes moist, nares normal, lips/teeth normal uvula midline without oral pharyngeal erythema, exudate or swelling TMs normal bilaterally. No lymphangitis/lymphedema. HEAD/NECK normocephalic atraumatic, no facial trauma, neck is supple. RESPIRATORY respiratory effort normal, speaks in full sentences, no tripod position, no accessory muscle use. Lungs clear to auscultation without rhonchi, wheezes, rales CARDIAC Regular rate and rhythm, no edema. ABDOMINAL Soft, ND/NT. No evidence of fluid wave. No pulsatile masses on exam, rebound tenderness, Diallo sign or pain over Mcburney's point. MUSCLES/EXTREMITIES No abnormal range of motion, no swelling. SKIN Warm, pink and dry. No rashes, dermatoses, petechiae or lesions. NEUROLOGICAL Speech is clear and appropriate. Normal level of consciousness. Gait and coordination are normal. 5/5 strength in all extremities. PSYCH Normal mood and affect. Judgement/competence is appropriate Coding Level of Care Code Est Pt Level 4 (37566) Diagnoses Neck pain M54.2 Sciatica M54.30 Time Spent (min) 30 Assessment & Plan Assessment & Plan (1) Neck pain: Code(s): M54.2 - Cervicalgia Category: Medical Plan: - Ordered neck x-ray to assess current condition. - Prescribed Tylenol and Voltaren gel for pain management. - advised patient on stopping ibuprofen due to his ed en y surgery and to stick to tylenol and local Voltaren gel. (2) Sciatica: Code(s): M54.30 - Sciatica, unspecified side Category: Medical Plan: - Ordered CT scan of the lower back to evaluate pain source. - Referred to pain management for further evaluation and possible intervention. Plan I discussed with the patient the management of his headache, emphasizing the use of Tylenol instead of ibuprofen due to his history of bypass surgery. We also talked about obtaining imaging studies, including a neck x-ray and a CT scan of the lower back, to further evaluate his cervical and lumbar radiculopathy. I recommended referral to pain management for additional evaluation and treatment options. Orders: Orders CT lumbar spine wo IV con Today M54.30 - Sciatica, unspecified side XR cervical spine 2V Today M54.2 - Cervicalgia Referrals Pain Management Referral M54.30 - Sciatica, unspecified side Medications: New acetaminophen ER (Tylenol 8 Hour) 650 mg PO Q8H PRN 90 tabs 3RF pain diclofenac sodium 1% (Voltaren Arthritis Pain) apply to single knee, ankle, foot; for foot includes sole/toes/top of foot 4 grams topical QID 100 grams 3RF Refilled cyclobenzaprine 10 mg PO BEDTIME 30 tabs 0RF sennosides (senna) 17.2 mg (2 x 8.6 mg) PO BEDTIME PRN 180 tabs 3RF constipation pantoprazole 40 mg PO DAILY 90 tabs 1RF dulaglutide (Trulicity) 1.5 mg (0.5 mL) subcut QWEEK 2 mL 1RF tamsulosin 0.4 mg PO BEDTIME 90 caps 1RF 90 days N13.8 - Other obstructive and reflux uropathy, N40.1 - Benign prostatic hyperplasia with lower urinary tract symptoms tadalafil 5 mg PO DAILY 90 tabs 1RF sexual activity 90 days R33.9 - Retention of urine, unspecified
== END 2025-02-10 14:59 | disposition home or self-care (01) ==
LOC: HO.HMCH 14:11
PROVIDERS: PCP Internal Medicine; Visit Provider Internal Medicine
DX: M54.2 Cervicalgia (principal); M54.30 Sciatica, unspecified side

== ENCOUNTER → 2025-02-10 14:10 | Outpatient (BNVA) | payer MEDICARE, MEDICAID, SELFPAY | PROVIDERS: PCP Internal Medicine; Visit Provider Internal Medicine | DX: M54.12 Radiculopathy, cervical region (principal); M54.16 Radiculopathy, lumbar region; M54.30 Sciatica, unspecified side; N40.1 Benign prostatic hyperplasia with lower urinary tract symptoms; N13.8 Other obstructive and reflux uropathy; R33.8 Other retention of urine | CPT/HCPCS: 99212 ==

== ENCOUNTER 2025-03-09 10:30 | Outpatient (REF) | payer MEDICARE, MEDICAID, SELFPAY ==
--- NOTE | ~2025-03-09 | XR_ITS ---
EXAMINATION: X-ray lumbar spine CLINICAL INFORMATION: Postlaminectomy syndrome COMPARISON: X-ray 03/05/2014 TECHNIQUE: 5 views lumbar spine FINDINGS: 5 lumbar type vertebral bodies. Vertebral body heights are maintained. No evidence of acute fracture. No suspicious bony lesions. Severe L5-S1 disc space narrowing, with possible osseous bridging in the intervertebral disc space. Multilevel disc degenerative changes otherwise present. Moderate disc degeneration at T12-L1. Multilevel facet degeneration. SI joints are symmetric. Surgical clips in the abdomen. XR/XR lumbar spine 4V min IMPRESSION: Lumbar spondylosis. Severe L5-S1 disc degeneration. Electronically signed by: Nick Currie MD 03/10/2025 11:19 AM EST
--- NOTE | ~2025-03-09 | XR_ITS ---
EXAMINATION: XR CERVICAL SPINE CLINICAL INFORMATION: M54.2 - Cervicalgia COMPARISON: X-ray 03/05/2014 TECHNIQUE: 5 views cervical spine FINDINGS: Slight straightening of the cervical curvature. Vertebral body heights are maintained. No evidence of acute fracture, spondylolisthesis or aggressive bony process. Redemonstrated are postsurgical changes with implant at C5-6. There is apparent sclerosis/osseous bridging in the intervertebral space, new from previous. There is mild C4 endplate spurring. No prevertebral soft tissue swelling. Predens space is maintained. Apparent multilevel bilateral neural foramen narrowing. Lung apices are clear. XR/XR cervical spine 4V IMPRESSION: 1. Postsurgical changes at C5-6, with sclerosis/ankylosis in the intervertebral space, new from previous. 2. Mild C4 endplate spurring. 3. Apparent multilevel bilateral neural foramen narrowing. Electronically signed by: Nick Curire MD 03/09/2025 03:37 PM [facility]
== END 2025-03-09 10:31 | disposition home or self-care (01) ==
LOC: HO.XRAY 10:30
PROVIDERS: PCP Internal Medicine; Visit Provider Nurse Practitioner Family
DX: M96.1 Postlaminectomy syndrome, not elsewhere classified (principal); M54.2 Cervicalgia; G89.29 Other chronic pain; M54.50 Low back pain, unspecified; M54.6 Pain in thoracic spine; R51.9 Headache, unspecified
CPT/HCPCS: 72050; 72110; 99202

== ENCOUNTER 2025-03-09 10:30 | Outpatient (AMB) | payer MEDICARE, MEDICAID, SELFPAY ==
--- NOTE | 2025-03-09 10:55 | A.OFFVIS_ITS ---
Vital Signs 03/09/25 10:59 Height 5 ft 8 in Weight 198 lb BMI 30.1 BP 132/85 Blood Pressure Location Lt brachial Position Sitting Pulse 68 Pulse Source Pulse Oximeter Pulse Oximetry (%) 99 Oxygen Delivery Method Room Air Intake Visit Reasons: Sciatica, unspecified side Intake Note: Pain today 11/12 Hand Hose Cutter Required: No Accompanied by: Self / Same As Patient Allergies morphine (MORPHINE) Allergy (Severe, Verified 03/09/25 10:58) SHORTNESS OF BREATH, resp depression adhesive tape (ADHESIVE TAPE) Allergy (Intermediate, Verified 03/09/25 10:58) RASH flurandrenolide Allergy (Intermediate, Verified 03/09/25 10:58) Rash metformin (METFORMIN) Allergy (Intermediate, Verified 03/09/25 10:58) RASH HPI Comments Details: The patient is a 59-year-old male presenting with chronic neck and back pain. The patient has a history of lumbar fusion performed in 2006 and cervical fusion in 2010, which provided partial relief. He reports constant neck pain that radiates to the right side, with associated numbness in both arms, worse on the left side. Denies any recent trauma, injury, or falls. The patient has been experiencing these symptoms since , with headaches occurring frequently. He has previously undergone trigger point injections in the thoracic spine, which provided partial relief. The patient has a history of diabetes mellitus, with an A1c of 6.1 as of November this year, and has undergone bariatric surgery. She denies any recent physical therapy, chiropractic adjustments, acupuncture therapy or TENS unit. Patient also reports lower back pain which is not as significant as ongoing neck symptoms. He chronically suffers from cervical and lumbar postlaminectomy syndromes and was previously discussed neuromodulation with spinal cord stimulation in this office but was hesitant towards implantable procedures. He is willing to start formal physical therapy for his current symptoms prior to interventional treatments. He has been on various pain management medications, including Suboxone, which he could not tolerate due to adverse effects such as vomiting. The patient was previously on our opioid pain management program but was suspended due to a discrepancy in medication count, which he attributes to his son's use post- surgery. - Onset: Neck and back pain has been present since . - Quality: Constant neck pain, radiating to the right side, with numbness in both arms, worse on the left. Back pain radiates to right leg. Constant numbness, tingling, burning, aching, throbbing, shooting, and tightness - Exacerbating factors: Pain worsens with neck movement, especially looking up and to the right. Back pain increases with walking or climbing stairs. - Relieving factors: Previous trigger point injections provided partial relief. Minimal relief with diclofenac gel, Flexeril, Tylenol - Affect: Pain impacts daily activities and mood, with frequent headaches reported. - Analgesia: Currently using Tylenol, which is ineffective; previously used Suboxone, which caused vomiting. - Adverse Effects: Vomiting from Suboxone. - Activities of Daily Living: Pain limits neck movement and daily functioning. - Aberrant Drug Related Behaviors: Medication discrepancy due to son's use post- surgery. Oswestry Neck Pain Disability Index Score=39 PRIOR 04/2021: Patient is a pleasant 55 years old male who has been previously seen by Dr. Hernandez and Dr. Byrd for medical management of chronic pain syndrome due to failed cervical fusion, post laminectomy syndrome and thoracic radiculopathy. Today, he is here for a pill count. Patient is supposed to have 56 pills, in his possession has 59 pills. This demonstrates a responsible attitude in regards to the medication regimen. Patient continues to report reasonable pain relief on his regimen of oxycodone 30 mg/day.? He reports mild to moderate decrease in pain, with no noted side effects. Denies any constipation, nausea, sedation, dizziness, or urinary retention. He states they have an increased ability to perform activities of daily living, interact socially and be more functional. Patient has upcoming appointment with Dr. Palmer regarding thoracic MRI findings which showed moderate spondylarthropathy and stenosis and have been causing him intermittent lateral left upper extremity numbness and tingling. PRIOR: LUMBAR FUSION 2006 & CERVICAL FUSION [address] PALMER AT [facility] [place] - PARTIAL RELIEF TRIGGER INJECTIONS THORACIC - BY DR BYRD - 2011 AT [facility] - REFERRED BACK TO DR PALMER 04/2021 LUMBAR MRI01/2021 - MODERATE STENOSIS & SPONDLOARTHROPATHY REPORTED UNPLEASANT SIDE EFFECT WITH SUBOXONE, BUTRANS & BELBUCA.? BERNESE METHOD HAS NOT BEEN TRIED. Mac reports mild- moderate relief on his present dose of Percocet. Has upcoming repeat visit with Dr Palmer 04/2021 PRIOR: Lumbar fusion surgery in 2006 and cervical fusion in [address] Palmer they were both at [facility] [place] and both gave Mac partial relief by Dr Palmer/[facility] [place] Trigger point injections - Dr Trevon Byrd . He also underwent trigger point injection recently by Dr Byrd. Mac underwent an MRI ordered by Dr Byrd which was done 01/16/2021. It does mention moderate spondyloarthropathy and stenosis, however, I need Dr Byrd to go over it with additional details Mac has been tried more than once on Belbuca, Butrans and Suboxone w/o adequate analgesia and is being maintained on Percocet 30 mg/day which is within state guidelines. The only thing that has not yet been tried is Suboxone via Bernese method. Mac did undergo a thoracic MRI requested by Dr Byrd which showed moderate spondylarthropathy and stenosis. Mac forgot to bring in his pills for a count and the visit will be concluded when his brings in the medication and Mac says she left but it will take perhaps 10-20 minutes. ? REPLACED BY [facility] Medical History Vasomotor rhinitis History of benign bladder tumor Acute appendicitis Failed cervical fusion Anxiety Thoracic radiculopathy due to degenerative joint disease of spine Dyshidrotic eczema Onychomycosis Myofascial pain syndrome Postlaminectomy syndrome of lumbar region Radiculopathy, lumbar region Cervical vertebral fusion Surgical History H/O colonoscopy (~01/12/17) History of laparoscopic appendectomy (09/17/21) S/P laparoscopic appendectomy History of gastric bypass History of neck surgery History of bariatric surgery History of lumbar fusion History of lumbar laminectomy Family History Mother Liver disease Father Diabetes Sister Leukemia Social History Household Members: Spouse Housing: Apartment Alcohol intake: current Alcohol intake frequency: does not drink Patient Tobacco Use Status: Never used Tobacco e-Cigarette/Vaping Use: Never Used Second Hand Smoke Exposure: No service: No Current occupational status: disabled Cognitive needs: Yes (Cane) Hearing needs: No Vision needs: Yes (Glasses) Review of Systems Const Details: - Musculoskeletal: Reports chronic neck and back pain, numbness in bilateral arms and right leg. - Neurological: Reports headaches, denies headaches from neck pain. Denies bladder or bowel dysfunction or saddle anesthesia. - Endocrine: Reports history of diabetes mellitus, A1c 6.1 as of November. All systems reviewed & are unremarkable except as noted in HPI and below Physical Exam Vital Signs: Last Vital Signs Pulse 68 03/09/25 10:59 BP 132/85 03/09/25 10:59 Pulse Ox 99 03/09/25 10:59 Oxygen Delivery Method Room Air 03/09/25 10:59 BMI result Body Mass Index 30.1 General: Appears afebrile. Alert and oriented. Mood and affect appropriate. Follows and participates in conversation appropriately. Respiratory effort is unlabored. No cough. Able to transition from sit to stand unassisted. Uses cane with ambulation. Mild difficulty getting up from sitting to standing position. Ambulates with antalgic gait, mild limping on the right. Reports right leg pain and weakness with walking. Eyes Pupils: Equal, round and reactive pupils present Neck Other: Patient with decreased cervical ROM in all planes/especially with right lateral rotation. Reports increased pain with cervical extension/flexion. Spurling compression test equivocal. Elvey's tension test positive bilaterally, with radiation of pain from neck to wrist, left>right. Neck: Yes normal visual inspection, Yes no lymphadenopathy, Yes supple, No anterior neck swelling, No torticollis, Yes no JVD, No prominent supraclavicular fat pad and Yes prominent dorsocervical fat pad General: Yes no CVA tenderness Back/Spine/Pelvis Back: no CVA tenderness Cervical Spine: No collar present, No Lhermitte's sign positive, loss of normal cervical lordosis, cervical muscular tenderness, pain with cervical ROM, Cervical spine scars present, No Cervical spine tenderness and No step off deformity Thoracic/Lumbar Spine: thoracic and lumbar spine normal to inspection, Thoracic/lumbar spine scar(s), pain with thoraco-lumbar ROM, paraspinal muscle tenderness on the right greater than left, thoraco-lumbar ROM limited, No thoracic spinal tenderness and lumbar spinal tenderness at L4 and at L5 Sacroiliac joints: bilaterally tender to palpation Neuro General: moves all extremities, Normal light touch and pain sensation and CN's II-XI intact bilaterally Cranial nerves: Yes Equal, round and reactive pupils present, Yes Bilaterally intact EOM present and Yes Ability to bilaterally elevate shoulders present Cognition (Neuro): normal cognition Gait exam (Neuro): Antalgic gait present and Assistive device used Motor exam (neuro): 5/5 motor strength present throughout (4/5 LUE, 4/5 RLE) Extrem General: Yes capillary refill normal, Yes no clubbing, cyanosis or edema and Yes no calf tenderness Results Reviewed Results Reviewed: CT abdomen pelvis w IV con 03/18/24 OSSEOUS STRUCTURES: No suspicious skeletal abnormalities noted. Partially visualized L5-S1 moderate posterior broad based disc-osteophyte complex. IMPRESSION: 1. No acute abnormalities identified. 2. Status post Rudy-en-Y gastric bypass. No intestinal dilatation or mural thickening. No free intraperitoneal fluid or gas collections. 3. Status post appendectomy. 4. Partially visualized L5-S1 moderate posterior broad based disc-osteophyte complex. MR THORACIC SPINE WITHOUT CONTRAST 01/16/21 CLINICAL INFORMATION: Spondylosis with radiculopathy. COMPARISON: Chest radiograph from 02/19/2017. TECHNIQUE: MRI of the thoracic spine was obtained using routine sequences without contrast. FINDINGS: Normal anatomic alignment. Lipid rich hemangioma within the T7 vertebral body. Mild to moderate degenerative disc disease from T1 to T12 with partial loss of disc height and desiccation. Associated Modic type II discogenic endplate change at T11-T12. No suspicious marrow edema. The vertebral body heights are largely maintained. No demonstrated spinal cord signal abnormalities. No significant abnormalities of the paraspinal musculature. There is a 0.9 cm T2 hyperintense nodule in the posterior right thyroid lobe (no follow-up imaging recommended). Limited evaluation of the intrathoracic structures without significant abnormalities. The descending thoracic aorta is of normal contour and caliber. AXIAL SPINAL LEVELS: Moderate disc-osteophyte complex measuring at C6-C7. Moderate posterior disc herniations at T1-T2, T5-T6, T6-T7, T7-T8, T8-T9, and T11-T12. Mild posterior disc herniations at all additional thoracic levels. There is mild flattening of the ventral cord at the level of T6-T7 without overt spinal canal stenosis. There is moderate multilevel facet joint arthropathy, most notably in the lower thoracic spine. There are moderate to severe neural foraminal stenoses at T1-T2 and from T7-T12 (worst at T9-T10 and T10-T11). 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 Most notably, there are moderate to severe neural foraminal stenoses at T1-T2 and from T7-T12 (worst at T9-T10 and T10-T11. Multilevel posterior disc herniations throughout the thoracic spine. Mild flattening the ventral cord at the level of T6-T7 without overt spinal canal stenosis. Assessment & Plan Assessment & Plan (1) Postlaminectomy syndrome of lumbar region: Code(s): M96.1 - Postlaminectomy syndrome, not elsewhere classified Category: Medical (2) Failed cervical fusion: Code(s): M96.0 - Pseudarthrosis after fusion or arthrodesis Category: Medical (3) Headache: Code(s): R51.9 - Headache, unspecified Category: Medical (4) Neck pain: Code(s): M54.2 - Cervicalgia Category: Medical (5) Chronic neck and back pain: Code(s): M54.2 - Cervicalgia; M54.9 - Dorsalgia, unspecified; G89.29 - Other chronic pain Category: Medical Plan The plan includes initiating physical therapy for both neck and back pain. X- rays of the neck and back will be conducted to rule out any acute changes, fusion status and if physical therapy does not yield improvement, an MRI will be considered to follow up on ongoing radicular symptoms of cervical spine. The patient is advised to follow up after completing physical therapy to assess progress and determine further management steps. All questions and concerns have been answered and patient agreed with the treatment plan. Follow up after PT and sooner as needed. Patient was informed and verbally consented to the use of an ambient scribe for clinic note documentation during this visit. Orders: Orders PT Evaluation and Treatment Today G89.29 - Other chronic pain, M54.2 - Cervicalgia, M54.9 - Dorsalgia, unspecified, M96.0 - Pseudarthrosis after fusion or arthrodesis, M96.1 - Postlaminectomy syndrome, not elsewhere classified, R51.9 - Headache, unspecified XR lumbar spine 4V min Today G89.29 - Other chronic pain, M54.2 - Cervicalgia, M54.9 - Dorsalgia, unspecified, M96.0 - Pseudarthrosis after fusion or arthrodesis, M96.1 - Postlaminectomy syndrome, not elsewhere classified XR cervical spine 4V Today G89.29 - Other chronic pain, M54.2 - Cervicalgia, M54.9 - Dorsalgia, unspecified, M96.0 - Pseudarthrosis after fusion or arthrodesis, M96.1 - Postlaminectomy syndrome, not elsewhere classified Coding Level of Care Code New Pt Level 4 ([id number]) Diagnoses Postlaminectomy syndrome of lumbar region M96.1 Failed cervical fusion M96.0 Headache R51.9 Neck pain M54.2 Chronic neck and back pain M54.2; M54.9; G89.29
[2025-03-09 10:59] VITALS: BP 132/85; PULSE 68; O2SAT 99; BMI 30.1
--- OUTSIDE RECORDS SUMMARY | 2025-03-09 12:18 | XMS_ITS | Data Portability ---
Author Organization [place] - [facility], Allergy Address [address] [address] Care Team Providers Care Education Finance Processor Name Role Phone SOFY GUARDADOK Primary Care Provider Assessment Encounter Date Assessment [...] were answered. [email or web address] Not available 10/02/2024 14:34:30 12/03/2024 12/03/2024 59-year-old male with non-allergic rhinitis presents for reevaluation. Skin allergy testing was unremarkable. CT sinus 10/09/2024 was benign. He discontinued oxymetazoline use. No improvement with daily intranasal fluticasone for 6 weeks. Low suspicion for vasomotor rhinitis. Anterior rhinoscopy demonstrates 2+ inferior turbinate hypertrophy. Septum is essentially normal. Nasal patency is adequate. Recommend trial of intranasal budesonide for 4-6 weeks and follow up with MD. [email or web address] Not available 12/03/2024 10:50:13 01/20/2025 01/20/2025 The patient demonstrates a high nasal symptom score of 90, indicating significant nasal congestion. Examination reveals a small anterior septal spur with significant turbinate hypertrophy, donavon bullosa and septal swell body I will prescribe ipratropium bromide nasal spray to address nonallergic nasal congestion. The patient will be monitored for symptom improvement with this treatment and follow-up in 2 months. If symptoms persist, surgical intervention to correct the deviated septum, inferior turbinate hypertrophy, donavon bullosa and septal swell body may be considered in the future. [email or web address] Not available 01/20/2025 16:39:39 Plan of Treatment Reminders Order Date Submit Date Provider Last Modified By Organization Details Last Modified Time Details Appointments Establish ed 30 2024 03:30P M BELLA LOVING MD Not available Not available Not available Lab None recorded. Referral None recorded. Procedures allergy testing, skin prick (PROC) 2024 025 [email or web address] Not available 10/19/2024 11:49:02 intraderm al allergy skin testing (PROC) 2024 025 Not available 10/19/2024 11:49:09 pulmonary function test procedure (PROC) 2024 025 Not available 10/19/2024 11:49:16 pulse oximetry (PROC) 2024 025 [email or web address] Not available 10/19/2024 11:49:25 Surgeries None recorded. Imaging CT, sinuses, w/o contrast 2024 025 [facility], [address] [facility], [facility] [address], [place], [address], 10/13/2024 08:16:26 Medication Orders ipratropi um bromide 21 mcg (0.03 %) nasal spray 2024 025 [id number], [address] [place], [place], [phone], 01/20/2025 16:40:52 budesonid e 32 mcg/actua tion nasal spray 2024 025 [id number], [address] [place], [place], [phone], 12/03/2024 10:49:48 Patient TargetsNo targets recorded. Patient Instructions Encounter Date Encounter Id Patient Instructions Last Modified By Organization Details Last Modified Time 10/19/2024 [id number] Nursing Documentation for Allergy Testing: Ordering Provider [...] date No Other: Written by: Tierra Shanks [email or web address] Not available 10/19/2024 11:53:01 01/20/2025 [id number] Use the prescrib ed ipratropium bromide nasal spray as directed. Monitor symptoms and report any changes or lack of improvement. [email or web address] Not available 01/20/2025 16:26:04 Please note: Par ts of this encounter note have been generated by AI based on audio conversation. Patient consent was required prior to utilizing this technology. Content review was required prior to finalizing the note. [email or web address] Not available 01/20/2025 16:26:04 Reason for Referral None Reported. Results Created Date Observation Date Name Description Value Unit Range Abnormal Flag Note LastModifiedBy Organization Detail LastModifiedTime 10/14/1910/0910/09/2024 CT, sinus es, w/o contr ast No observ ation record ed. [email or web address] [facility] [address] [address], [place], [address], 01/22/2025 08:40:30 10/20/19 25 denise metry testi ng* No observ ation record ed. [email or web address] Not Available 2024 09:26:40 Result Notes None recorded. Problems Name Problem SNOMED Code Status Onset Date Resolution Date Notes Provider Name and Address Organization Details Recorded Time Non-allergi c rhinitis 953470814222 Active 2024 PAPITO MONTE PA-C [address] [place] [address], [place], [address], [facility] - [facility] [place] 14:33:51 Chronic sinusitis 08660056 Active 2024 PAPITO MONTE PA-C [address] [place] [address], [place], [address], [facility] - [facility] [place] 14:34:03 Chronic rhinitis 49502898 Active 2024 BELLA LOVING MD [address] [place] [address], [place], [address], [facility] - [facility] [place] 16:24:56 Deviated nasal septum 495691044 Active 2024 BELLA LOVING MD [address] [place] [address], [place], [address], [facility] - [facility] [place] 16:24:58 Hypertrophy of nasal turbinates 19664239 Active 2024 BELLA LOVING MD [address] [place] [address], [place], [address], [facility] - [facility] [place] 16:40:36 Problem Notes None recorded. Procedures Surgical History Date Name Laterality Status Provider Name and Address Organization Details Recorded Time JMSNasal/Sinus Endoscopy completed BELLA QUIROS MD [address] [place] [address] [place],[facility] [address], [place], [address], [facility] - [facility] 01/20/2025 16:38:53 5 Allergy Testing-Full completed ALYSSA DOTSON [address] [facility] [place],[facility] [address], [place], [address], [facility] - [facility] 10/19/2024 11:51:10 5 NasalEndoscopy _DP completed PAPITO MONTE PA-C [address] [facility] [place],[facility] [address], [place], [address], [facility] - [facility] 10/02/2024 14:35:19 Imaging Results None recorded. Procedure Notes None recorded. Medical Equipment None Reported. Allergies No known drug allergies Medications Name Sig Start Date Stop Date Status Note LastModified by Organization Details LastModified Time cyclobenzap rine 10 mg tablet TAKE 1 TABLET BY MOUTH AT BEDTIME active Not Available Not Available No t Available budesonide 32 mcg/actuati on nasal spray SHAKE LIQUID AND USE 2 SPRAYS IN EACH NOSTRIL EVERY DAY FOR 42 DAYS DIRECTED FOR NASAL CONGESTIO N active Not Available Not Available No t Available senna 8.6 mg tablet TAKE 2 TABLETS BY MOUTH EVERY NIGHT AT BEDTIME NEEDED FOR CONSTIPAT ION active Not Available Not Available No t Available meloxicam 15 mg tablet TAKE 1 TABLET BY MOUTH DAILY 01/20 completed Not Available Not Available Not Available tamsulosin 0.4 mg capsule TAKE 1 CAPSULE BY MOUTH AT BEDTIME active Not Available Not Available No t Available pantoprazol e 40 mg tablet,pedro yed release TAKE 1 TABLET BY MOUTH DAILY active Not Available Not Available No t Available docusate sodium 100 mg capsule TAKE 1 CAPSULE BY MOUTH TWICE DAILY 01/20 completed Not Available Not Available Not Available fluticasone propionate 50 mcg/actuati on nasal spray,suspe nsion SHAKE LIQUID AND USE 1 SPRAY IN EACH NOSTRIL DAILY active Not Available Not Available No t Available ipratropium bromide 21 mcg (0.03 %) nasal spray USE 2 SPRAYS IN EACH NOSTRIL THREE TIMES DAILY active Not Available Not Available No t Available tadalafil 5 mg tablet TAKE ONE TABLET BY MOUTH EVERY DAY FOR SEXUAL ACTIVITY active Not Available Not Available No t Available Trulicity 1.5 mg/0.5 mL subcutaneou s pen injector ADMINISTE R 1.5 MG UNDER THE SKIN EVERY WEEK active Not Available Not Available No t Available Vitals Date Recorded Body height Body mass index (BMI) Body weight Provider Name and Address Organization Details Last Updated DateTime 10/02/2024 172.72 cm 29.2 kg/m2 92822.74 g Tahira Carpenterraven [facility] 10/02/2024 14:05:13 Date Recorded Body height Body mass index (BMI) Body weight Oxygen saturation Oxygen saturation in Arterial blood by Pulse oximetry Heart rate Systolic And Diastolic Provider Name and Address Organization Details Last Updated DateTime 172.72 cm 29.2 kg/m2 86277.7 4 g 99 % 99 % 64 /min 106/72 mm[Hg] ALYSSA DOTSON [address] [place] [address], [address] [place] [address] [facility] 09:19:52 Date Recorded Body height Body mass index (BMI) Body weight Provider Name and Address Organization Details Last Updated DateTime 12/03/2024 172.72 cm 29.2 kg/m2 50266.74 g Ava Arevalo [facility] 12/03/2024 10:17:41 Social History None recorded. Functional Status None recorded. Mental Status None recorded. Family History Nothing Reported. Medical History Condition Response Diabetes Y Arthritis Y Past Encounters Encounter ID Performer Location Encounter Start Date Encounter Closed Date Diagnosis/Indication Diagnosis SNOMED-CT Code Diagnosis ICD10 Code Diagnosis IMO Codes Diagnosis Note [id number] PAPITO MONTE PA-C [facility] [address] [address] 10/02/2024 14:00:55 10/02/2024 14:31:23 Nasal congestion 26892536 R09.81 [id number] ALYSSA DOTSON [facility] [address] [place] [address] 10/19/2024 09:02:30 10/19/2024 11:54:22 Allergic rhinitis caused by pollen 50010894 J30.1 [id number] PAPITO MONTE PA-C [facility] [address] [place] [address] 12/03/2024 10:14:02 12/03/2024 10:40:15 Non-allergic rhinitis 2574755906 01 J31.0 [id number] BELLA ROSAS MD [facility] [address] [address] 01/20/2025 15:47:19 01/20/2025 16:30:38 Chronic rhinitis 84370972 J31.0 2545 Deviated nasal septum 12 0866946 J34.2 52783 Hypertroph y of nasal turbinates 80411647 J34.3 [id number] Health Concerns Section Related Observation LastModified by Organization Detai ls LastModified Time None Recorded Concern Status LastModified by Organization Details LastModified Time None Recorded Advance Directives Directive None Recorded Payers Insurance Date Sequence Insurance Name Policy Number Policy Aleman Covered Member ID Aleman Member ID Guarantor Name 01/17/2025 1 [place] [employer] Mac Blankbron [id number] Mac Stevenssarina Baires 01/17/2025 2 [place] [facility] Mac Nguyen [id number] Mac Stevensta Baires Notes Date Note Type Note Provider Name and Address Organization Details Recorded Time 10/02/2024 text/html ROS as noted in the HPI 59-year-old male presents for evaluation of chronic [...] neuralgia and occasional headache. PAPITO MONTE PA-C [address] [place] [address] [place], [address], [facility] 10/02/2024 14:48:55 12/03/2024 text/html ROS as noted in the HPI 59-year-old male with nonallergic rhinitis presents for reevaluation of nasal congestion. Skin allergy testing was unremarkable. CT sinus 10/09/2024 demonstrated small right maxillary sinus retention cyst, and clear paranasal sinuses otherwise. He discontinued oxymetazoline use. No improvement with daily intranasal fluticasone for 6 weeks. The nasal congestion started approximately years ago after frequently wearing facial masks. The congestion alternates sides. Infrequent sneezing and clear nasal drainage. No correlation with eating food, temperature changes, or laying flat. His sense of smell is reduced. BELLA QUIROS MD [address] [facility],[address], [address], [facility] 12/03/2024 10:51:25 01/20/2025 text/html Mac Baires is a 59-year-old male who presents for nasal congestion. He reports experiencing persistent nasal blockage on both sides for approximately two years, with symptoms worsening at night, causing him to wake up around 01:00 AM. He denies frequent illness during the pandemic and states he did not experience COVID-19 symptoms. Previous allergy testing and a CAT scan were unremarkable. He has used a steroid nasal spray, which provided minimal relief, and has discontinued the use of tihy-prl-mmhxaie decongestant sprays. [id number] 9/10 out of 125 BELLA QUIROS MD [address] [facility],[address] [address], [place], [address], [facility] 01/20/2025 16:40:46
--- OUTSIDE RECORDS SUMMARY | 2025-03-09 12:18 | XMS_ITS | Encounter Summary ---
Author Organization [facility] Address [address] [facility] [address] [place] [address] Phone Care Team Providers Care Electrical Technician Instructor Name Role Phone Carlos Hernandez Primary Care Provider [phone] Dominic Evans MD Primary Care Provid er Encounter Details Date Type Department Care Team (Late st Contact Info) Description 02/06/2022 Procedure [facility], Ct Scan - [facility] [address] [place] [address] Social History Tobacco Use Types Packs/Day Years [...] 8:19 PM EDT Orlando Salcedo RN * [place] Suicide Severity Rating Scale (Screener/Recent Self-Report) Question [...] documented as of this encounter Care Teams Electrical Technician Instructor Relationship Specialty Start Date End Date Carlos Hernandez DO [address] [place] [address] PCP - General Family Medicine 06/03/19 05/08/22 Dominic Evans MD [address] [place] [address] PCP - General Internal Medicine 05/09/22 documented as of this encounter Additional Source Comments The information contained in this document represents components of the legal health record. It is not the complete legal health record.[facility]
--- OUTSIDE RECORDS SUMMARY | 2025-03-09 12:19 | XMS_ITS | Clinical Summary ---
Author Organization [facility] Address [address] [place] [address] Phone Care Team Providers Care Electric Lineman Name Role Phone Dominic Evans MD Primary Care Provid er Allergies Active Allergy Reactions Criticality Noted Date Comments Metformin Rash Low 02/06/2022 Morphine 02/06/2022 Medications gabapentin (NEURONTIN) 100 MG capsule Take 1 capsule (100 mg total) by mouth 3 (three) times a day as needed (neuropathic pain). 21 capsule 3 Active methylPREDNISol one (MEDROL DOSEPACK) 4 mg tablet follow package directions 21 tablet 3 Active aluminum-magnes ium hydroxide-simet hicone (MAALOX) 200-200-20 mg/5 mL Susp Take 30 mL by mouth every 6 (six) hours as needed. 354 mL 4 Active tadalafiL (CIALIS) 5 MG tablet Take 5 mg by mouth. 4 Active tamsulosin (FLOMAX) 0.4 mg Cap Take 0.4 mg by mouth nightly at bedtime. 4 Active Active Problems Problem Noted Date Diagnosed Date Class 1 obesity 02/07/2022 Diabetic neuropathy 02/07/2022 Herniation of intervertebral disc of cervical re gion 02/07/2022 Lumbar radiculopathy 02/07/2022 Epididymitis 02/07/2022 Assessment & Plan (02/07/2022 4:28 AM EDT): Was originally seen at [facility] where he was diagnosed with E. coli UTI . He was discharged on Macrobid and was then started on Flomax by urology. Ultrasound done on presentation here today is consistent with epididymitis. No history of trauma to the region to suspect traumatic etiology. Low suspicion for Neisseria or chlamydia as causative etiology. Given his recent admission with E. coli , it is possible the causative agent is E. Coli. Plan: - Started on ceftriaxone - We will check Neisseria and chlamydia - Follow-up urine culture, blood cultures - As needed pain meds with Toradol -Hold Flomax for now Leukocytosis 02/07/2022 Assessment & Plan (02/07/2022 4:41 AM EDT): Likely in setting of epididymitis. Not clinically septic Plan: - Repeat WBC in morning - Treat epididymitis as above Type 2 diabetes mellitus 02/07/2022 Assessment & Plan (02/07/2022 4:41 AM EDT): Not currently on any oral medications for it. Was hyperglycemic on presentation Plan: - Sliding scale lispro and - POC ACH S - A1c in morning Immunizations Immunization Administration Dates Next Due Influenza Quadrivalent Preservative Free IM 10/2021 Family History Medical History Relation Comments Lung cancer Maternal Uncle Cirrhosis Mother Diabetes mellitus Mother Relation Status Comments Maternal Uncle Mother Social History Tobacco Use Types Packs/Day Years Used Date Smoking Tobacco: Never Smokeless Tobacco: Never Alcohol Use Standard Drinks/Week Comments Never 0 (1 standard drink = 0.6 oz pur e alcohol) Education Answer Date Recorded Are you interested in more education? Not on won e 08/31/2022 Are you concerned about learning? Not on file 08/31/2022 No 08/31/2022 No 08/31/2022 Digital Access Answer Date Recorded No 09/29/2022 No 09/29/2022 Reliable internet access at home? Not on file 09/29/2022 Device with a working camera? Not on file Intimate Partner Violence Answer Date R ecorded Are you denied basic needs s uch as food, clothing, or medical care? No 09/27/2023 In the past 12 months have y ou been in a relationship with a person who hurts, threatens, or tries to control you? No 09/27/2023 Are you denied basic needs s uch as food, clothing, or medical care? No 09/27/2023 In the past 12 months have y ou been in a relationship with a person who hurts, threatens, or tries to control you? No 09/27/2023 Sex and Gender Information Value Date Recorded Sex Assigned at Male 06/03/2019 10:19 AM EST Legal Sex Male 9:39 PM EDT Gender Identity Male 06/03/2019 10:19 AM EST Sexual Orientation Not on file Last Filed Vital Signs Vital Sign Reading Time Taken Comments Blood Pressure 100/49 09/28/2023 5:33 AM EDT Pulse 65 09/28/2023 5:33 AM EDT Temperature 36.7 C (98.1 F) 09/28/2023 5:33 AM EDT Respiratory Rate 16 09/28/2023 5:33 AM EDT Oxygen Saturation 100% 09/28/2023 5:33 AM EDT Inhaled Oxygen Concentration - - Weight 95.3 kg (210 lb) 09/27/2023 11:17 PM EDT Height 172.7 cm (5' 8 ) 09/27/2023 11:17 PM EDT Body Mass Index 31.93 09/27/2023 11:17 PM EDT Plan of Treatment Health Maintenance Due Date Last Done Comments BLOOD PRESSURE 1966 DEPRESSION SCREENING 1978 HEPATITIS C SCREENING 1984 HIV ONE-TIME SCREENING (18-6 5 YEARS) 1984 LIPID PANEL 1984 COLOGUARD 2011 COLONOSCOPY 2011 COLORECTAL CANCER SCREENING 2011 FIT TEST 2011 FOBT 2011 SIGMOIDOSCOPY 2011 VIRTUAL COLONOSCOPY 2011 PNEUMOCOCCAL VACCINES (50+ years) (2 of 2 - PCV) 01/27/2016 01/26/2015 RSV VACCINE (1 - Risk 50-74 years 1-dose series) 2016 ZOSTER VACCINES (1 of 2) 2016 DIABETIC EYE EXAM 02/07/2022 URINE MICROALBUMIN/CREATININ E RATIO 02/07/2022 HEMOGLOBIN A1C 08/08/2022 02/07/2022 Adult Td,Tdap Booster 11/16/2024 11/16/2014 INFLUENZA VACCINE (#1) 2024 2, 02/14/2016 COVID-19 VACCINE (2 2024-2 6 season) 2025 08/14/2020 SMOKING STATUS SCREENING (On ce After 26 Yrs) Completed 02/06/2022 HEPATITIS A VACCINES Aged Out No long er eligible based on patient's age to complete this topic HIB VACCINES Aged Out No longer eligi ble based on patient's age to complete this topic MENINGOCOCCAL VACCINES (ACWY) Aged Out No longer eligible based on patient's age to complete this topic MENINGOCOCCAL VACCINES (B) Aged Out N o longer eligible based on patient's age to complete this topic Medical Devices Not on file Procedures Procedure Name Priority Date/Time Associated Diagnosis Comments HEMOGLOBIN A1C STAT 02/07/2022 5:22 AM EDT from Last 3 Months or Most Recently Relevant to Health Maintenance Results * (ABNORMAL) Hemoglobin A1c (02/07/2022 5:22 AM EDT) HEMOGLOBIN A1C 6.8(H) 4.3 - 5.8 % [facility] Blood 02/07/2022 5:22 AM EDT 02/07/2022 5:56 AM EDT us Jayce Soria [employer] CLERK LAB BLOOD BKR ORDERABLES Final R esult [address] [address] from Last 3 Months or Most Recently Relevant to Health Maintenance Insurance [place] MEDICARE PART A & B [place] & [place] & B [facility] MEDICARE PART A & [place] & B [facility] MEDICARE PART A & B Advance Directives For more information, please contact: [phone] (9AM - 5PM [facility], Saturday-Saturday) * Full Code Except DNI (Latest Code Status on File) Date Activated Date Inactivated Comments 02/07/2022 4:43 AM Question Answer Comments Code Status Confirmed With: Patient Care Teams Electric Lineman Relationship Specialty Start Date End Date Dominic Evans MD [address] [place] [address] PCP - General Internal Medicine 05/09/22 Additional Source Comments The information contained in this document represents components of the legal health record. It is not the complete legal health record.[facility]
== END 2025-03-09 11:16 | disposition home or self-care (01) ==
LOC: HO.PMC 10:30
PROVIDERS: PCP Internal Medicine; Visit Provider Nurse Practitioner Family
DX: M96.1 Postlaminectomy syndrome, not elsewhere classified (principal); M96.0 Pseudarthrosis after fusion or arthrodesis; R51.9 Headache, unspecified; M54.2 Cervicalgia; M54.9 Dorsalgia, unspecified; G89.29 Other chronic pain
CPT/HCPCS: 99204

== ENCOUNTER → 2025-03-09 11:28 | Outpatient (BNV) | payer MEDICARE, MEDICAID, SELFPAY | PROVIDERS: PCP Internal Medicine; Visit Provider Radiology Diagnostic Ultrasound | DX: M51.379 Other intervertebral disc degeneration, lumbosacral region without mention of lumbar back pain or lower extremity pain (principal); M47.816 Spondylosis without myelopathy or radiculopathy, lumbar region | CPT/HCPCS: 72050; 72110 ==

== ENCOUNTER 2025-03-19 13:25 | Outpatient (AMB) | payer MEDICARE, MEDICAID, SELFPAY ==
--- NOTE | 2025-03-19 13:37 | MHC.OFFVIS ---
Intake Visit Reasons: 1Y PVR/UA Intake Note: Patient is present for PVR/UA Urology Med: Tadalafil, Tamsulosin Antibiotic Allergy: None Blood Thinner: None Last PVR:48ML PVR: 0ml HA1C- 6.1 11/19/2024 Last PSA- 0.61 01/14/2023 Helicopter Specialist Required: No Customer Advocacy Manager: Customer Advocacy Manager Present Accompanied by: Mother Allergies morphine (MORPHINE) Allergy (Severe, Verified 03/19/25 13:45) SHORTNESS OF BREATH, resp depression adhesive tape (ADHESIVE TAPE) Allergy (Intermediate, Verified 03/19/25 13:45) RASH flurandrenolide Allergy (Intermediate, Verified 03/19/25 13:45) Rash metformin (METFORMIN) Allergy (Intermediate, Verified 03/19/25 13:45) RASH HPI Comments Details: Mac is a very pleasant male. He is a patient of . He is seen for the following urologic conditions - recurrent UTI - lower urinary tract symptoms in setting of diabetes - erectile dysfunction in setting of diabetes Yearly review PVR less than 50 cc Remains on combination therapy tamsulosin and tadalafil Would continue Lower urinary tract symptoms Prior recurrent UTI Back surgery 2008. Previously weighed 320 lb. Confined to wheelchair for 2 years PSA 01/26 0.6 PVR initial assessment 400 cc Combination tamsulosin and tadalafil for bladder emptying PFSH Medical History Vasomotor rhinitis History of benign bladder tumor Acute appendicitis Failed cervical fusion Anxiety Thoracic radiculopathy due to degenerative joint disease of spine Dyshidrotic eczema Onychomycosis Myofascial pain syndrome Postlaminectomy syndrome of lumbar region Radiculopathy, lumbar region Cervical vertebral fusion Surgical History H/O colonoscopy (~01/12/17) History of laparoscopic appendectomy (09/17/21) S/P laparoscopic appendectomy History of gastric bypass History of neck surgery History of bariatric surgery History of lumbar fusion History of lumbar laminectomy Family History Mother Liver disease Father Diabetes Sister Leukemia Social History Household Members: Spouse Housing: Apartment Alcohol intake: current Alcohol intake frequency: does not drink Patient Tobacco Use Status: Never used Tobacco e-Cigarette/Vaping Use: Never Used Second Hand Smoke Exposure: No service: No Current occupational status: disabled Cognitive needs: Yes (Cane) Hearing needs: No Vision needs: Yes (Glasses) Review of Systems Const Denies chills and Denies fever(s) Card Reports no additional complaints and Denies syncope Resp Denies cough GI Denies abdominal pain and Denies heartburn Reports as per HPI and Denies change in libido Neuro Denies syncope Psych Denies change in libido Endo Denies change in libido Physical Exam Const General: cooperative, healthy appearing, comfortable and no acute distress Orientation/consciousness: patient oriented x3 HEENT Face and sinus: Yes normal facial exam Mouth: moist mucous membranes Neck Neck: Yes normal visual inspection, Yes full ROM and Yes trachea midline Chest Chest palpation & inspection: normal inspection of the chest Resp Effort & Inspection: normal respiratory effort, able to speak in complete sentences and no respiratory distress GI Inspection: Yes normal to inspection Back/Spine/Pelvis Cervical Spine: normal cervical lordosis Thoracic/Lumbar Spine: thoracic and lumbar spine normal to inspection Skin General skin exam: no rashes or lesions noted Neuro General: patient oriented x3, gait normal, tone normal and moves all extremities Extrem General: Yes normal to inspection and Yes capillary refill normal Office Procedures Post Void Residual Post Residual Void Post Void Residual (PVR): 0 58361-Lpmg Void Residual by ultrasound Results AMB Urinalysis, Automated UA Leukoctes 0 Buck/uL Last Edit by ALYSSA Oswald on 03/19/25 13:52 UA Nitrite Negative Last Edit by ALYSSA Oswald on 03/19/25 13:52 UA Urobilinogen 0.2 mg/dL Last Edit by ALYSSA Oswald on 03/19/25 13:52 UA Protein 15 mg/dL Last Edit by ALYSSA Oswald on 03/19/25 13:52 UA pH 6.0 Last Edit by ALYSSA Oswald on 03/19/25 13:52 UA Blood 0 Russ/uL Last Edit by ALYSSA Oswald on 03/19/25 13:52 UA Specific [place] 1.015 Last Edit by ALYSSA Oswald on 03/19/25 13:52 UA Ketone Negative Last Edit by PAYTON OswaldA on 03/19/25 13:52 UA Bilirubin 0 mg/dL Last Edit by Annetta Engle RMA on 03/19/25 13:52 UA Glucose 0 mg/dL Last Edit by PAYTON OswaldA on 03/19/25 13:52 Results Reviewed Results Reviewed: Laboratory Last Values Urine pH (Auto) 6.0 03/19/25 13:51 Specific Hampton (Auto) 1.015 03/19/25 13:51 Urine Protein (Auto) 15 mg/dL 03/19/25 13:51 Glucose (UA)(Auto) 0 mg/dL 03/19/25 13:51 Urine Ketones (Auto) Negative 03/19/25 13:51 Urine Blood (Auto) 0 Russ/uL 03/19/25 13:51 Urine Nitrite (Auto) Negative 03/19/25 13:51 Urine Bilirubin (Auto) 0 mg/dL 03/19/25 13:51 Urine Urobilinogen (Auto) 0.2 mg/dL 03/19/25 13:51 Leukocyte Esterase (Auto) 0 Buck/uL 03/19/25 13:51 Assessment & Plan Assessment & Plan (1) Erectile dysfunction associated with type 2 diabetes mellitus: Code(s): E11.69 - Type 2 diabetes mellitus with other specified complication; N52.1 - Erectile dysfunction due to diseases classified elsewhere Category: Medical (2) BPH w urinary obs/LUTS: Code(s): N40.1 - Benign prostatic hyperplasia with lower urinary tract symptoms; N13.8 - Other obstructive and reflux uropathy Category: Medical Plan Twelve month follow-up PSA office Orders: Orders Prostate Specific Antigen 12 Months R33.9 - Retention of urine, unspecified AMB Post Void Residual by ultrasound Today R33.9 - Retention of urine, unspecified AMB Urinalysis Automated Today Z13.9 - Encounter for screening, unspecified Medications: Refilled tadalafil 5 mg PO DAILY 90 tabs 3RF Bladder stability 90 days R33.9 - Retention of urine, unspecified tamsulosin 0.4 mg PO BEDTIME 90 caps 3RF 90 days N13.8 - Other obstructive and reflux uropathy, N40.1 - Benign prostatic hyperplasia with lower urinary tract symptoms Patient Instructions: This note is constructed using voice recognition software. While every effort has been made to ensure accuracy plating machine operator errors may have been included. Imaging studies, laboratory and physical exam results were discussed and reviewed in detail. No major barriers to patient understanding were identified. An opportunity to ask questions regarding the treatment plan was provided. All questions were answered. The patient expressed understanding and agreement with the above treatment plan. The patient is aware they should contact our office by phone for worsening of their current condition or the appearance of new urologic symptoms. Compliance is encouraged with any medications and followup testing that is ordered. It is a privilege to participate in the urologic care of your patient. If you have any questions or concerns regarding treatment for the above conditions, or other urologic issues, please do not hesitate to contact me. The office telephone contact is [phone]. Sincerely, Dr Jr Caldwell MD, K[facility] - Urology Compassionate Specialist Care for the Genitourinary System Coding Level of Care Code Est Pt Level 4 (28627) Diagnoses Erectile dysfunction associated with type 2 diabetes mellitus E11.69; N52.1 BPH w urinary obs/LUTS N40.1; N13.8 CPT Codes Post Residual Void - PVR CPT Code: 58162-Dial Void Residual by ultrasound ([id number])
--- OUTSIDE RECORDS SUMMARY | 2025-03-19 19:47 | XMS_ITS | Continuity of Care Document ---
Author Organization [place] - [facility], [facility] Address [address] [place] [address] Care Team Providers Care Humidifier Maintenance Worker Name Role Phone DEBBY, KARTIK Primary Care Provider Assessment Encounter Date Assessment Date Assessment LastModified by Organization Details LastModified Time 01/20/2025 01/20/2025 The patient demonstrates a high [...] body may be considered in the future. [email or web address] Not available 01/20/2025 16:39:39 Plan of Treatment Reminders Order Date Submit Date Provider Last Modified By Organization Details Last Modified Time Details Appointments Establish ed 30 2024 03:30P M BELLA LOVING MD Not available Not available Not available Lab None recorded. Referral None recorded. Procedures None recorded. Surgeries None recorded. Imaging None recorded. Medication Orders ipratropi um bromide 21 mcg (0.03 %) nasal spray 2024 025 [id number], [address], [place], [id number], 01/20/2025 16:40:52 Patient TargetsNo targets recorded. Patient Instructions Encounter Date Encounter Id Patient Instructions Last Modified By Organization Details Last Modified Time 01/20/2025 [id number] Use the prescribed ipratropium bromide nasal spray as directed. Monitor symptoms and report any changes or lack of improvement. rj Not available 01/20/2025 16:26:04 Please note: Parts of this encounter note have been generated by AI based on audio conversation. Patient consent was required prior to utilizing this technology. Content review was required prior to finalizing the note. [email or web address] Not available 01/20/2025 16:26:04 Reason for Referral None Reported. Problems Name Problem SNOMED Code Status Onset Date Resolution Date Notes Provider Name and Address Organization Details Recorded Time Non-allergi c rhinitis 957513036142 Active 2024 PAPITO MONTE PA-C [address] [place] [address], [address], [facility] - [facility] [place] 14:33:51 Chronic sinusitis 49273425 Active 2024 PAPITO MONTE PA-C [address] [place] [address], [address], [facility] - [facility] [place] 14:34:03 Chronic rhinitis 86109120 Active 2024 BELLA LOVING MD [address] [place] [address], [address], [facility] - [facility] [place] 16:24:56 Deviated nasal septum 897029331 Active 2024 BELLA LOVING MD [address] [place] [address], [address], [facility] - [facility] [place] 16:24:58 Hypertrophy of nasal turbinates 69588900 Active 2024 BELLA LOVING MD [address] [place] [address], [address], [facility] - [facility] [place] 16:40:36 Problem Notes None recorded. Procedures Surgical History Date Name Laterality Status Provider Name and Address Organization Details Recorded Time 09/17/202 5 JMSNasal/Sinus Endoscopy completed BELLA QUIROS MD [address], [place], [address], [facility] - [facility] 01/20/2025 16:38:53 5 Allergy Testing-Full completed ALYSSA DOTSON [address], [place], [address], [facility] - [facility] 10/19/2024 11:51:10 5 NasalEndoscopy _DP completed PAPITO MONTE PA-C [address], [place], [address], [facility] - [facility] 10/02/2024 14:35:19 Imaging Results None recorded. Procedure [...] Available Not Available No t Available Vitals None Recorded Social History None recorded. Functional Status None recorded. Mental Status None recorded. Family History Nothing Reported. Medical History Condition Response Diabetes Y Arthritis Y Past Encounters Encounter ID Performer Location Encounter Start Date Encounter Closed Date Diagnosis/Indication Diagnosis SNOMED-CT Code Diagnosis ICD10 Code Diagnosis IMO Codes Diagnosis Note [id number] BELLA ROSAS MD [facility] [address] [address] 01/20/2025 15:47:19 01/20/2025 16:30:38 Chronic rhinitis 63267728 J31.0 2545 Deviated nasal septum 12 8093814 J34.2 24241 Hypertroph y of nasal turbinates 54898044 J34.3 [id number] Health Concerns Section Related Observation LastModified by Organization Detai ls LastModified Time None Recorded Concern Status LastModified by Organization Details LastModified Time None Recorded Payers Encounter Date Sequence Insurance Name Policy Number Policy Aleman Covered Member ID Aleman Member ID Guarantor Name 01/20/2025 1 [place] [facility] Mac Baires [id number] Mac Baires 01/20/2025 2 [place] [facility] Mac Nguyen [id number] Mac Baires Notes Date Note Type Note Provider Name and Address Organization Details Recorded Time 01/20/2025 text/html Mac Baires is a 59-year-old [...] relief, and has discontinued the use of yvfe-yav-veretto decongestant sprays. NOSE=90TNSS 9/10 out of 125 BELLA QUIROS MD [address] [place] [address], [place], [address], [place] - [facility] 01/20/2025 16:40:46
--- OUTSIDE RECORDS SUMMARY | 2025-03-19 19:47 | XMS_ITS | Clinical Summary ---
Author Organization [facility] Address [address] [place] [address] Phone Care Team Providers Care Film Vault Supervisor Name Role Phone Dominic Evans MD Primary [...] 4:28 AM EDT): Was originally seen at [facility] where he was diagnosed with E. [...] VACCINE (#1) 2024 2, 02/14/2016 COVID-19 VACCINE (2024-2 6 season) 2025 08/14/2020 SMOKING STATUS SCREENING (On ce After 26 Yrs) Completed 02/06/2022 HEPATITIS A VACCINES Aged Out No long er eligible based on patient's age to complete this topic HIB VACCINES Aged Out No longer eligi ble based on patient's age to complete this topic IPV VACCINES Aged Out No longer eligi ble [...] HEMOGLOBIN A1C 6.8(H) 4.3 - 5.8 % [facility] Blood 02/07/2022 5:22 AM EDT 02/07/2022 5:56 AM EDT us Jayce Soria NP LAB BLOOD BKR ORDERABLES Final R esult [facility] [address] [place] [address] from Last 3 Months or Most Recently Relevant to Health Maintenance Insurance [employer] MEDICARE PART A & B [place] B Member Subscriber Plan / Payer ( fective 2009-Present) Name:Mac Nguyen Member ID:[id number] Relation to Subscriber:Self Name:Mac Nguyen Subscriber ID:[id number] Payer ID:[id number] Group ID:Not on file Type:Medicare Address: [employer] [address] [place] [address] [facility] MEDICARE PART A & B Member Subscriber Plan / Payer ( fective 2009-Present) Name:Mac Nguyen Member ID:[id number] Relation to Subscriber:Self Name:Mac Nguyen Subscriber ID:[id number] Payer ID:[id number] Group ID:Not on file Type:Medicare Address: [employer] [address] [place] [address] [place] & B [facility] MEDICARE PART A & B Advance Directives For more information, please contact: [phone] (9AM - 5PM [facility], Saturday-Saturday) * Full Code Except DNI (Latest Code Status on File) Date Activated Date Inactivated Comments 02/07/2022 4:43 AM Question Answer Comments Code Status Confirmed With: Patient Care Teams Film Vault Supervisor Relationship Specialty Start Date End Date Dominic Evans MD [address] [place] [address] PCP - General Internal Medicine 05/09/22 Additional Source Comments The information contained in this document represents components of the legal health record. It is not the complete legal health record.[facility]
--- OUTSIDE RECORDS SUMMARY | 2025-03-19 19:47 | XMS_ITS | Data Portability ---
Author Organization [place] - [facility], Allergy Address [address] [address] Care Team Providers Care Retail Coordinator Name Role Phone SOFY GUARDADOK Primary Care [...] allergy testing, skin prick (PROC) 2024 025 [email or web address] Not available 10/19/2024 11:49:02 intraderm al allergy skin testing (PROC) 2024 025 [email or web address] Not available 10/19/2024 11:49:09 pulmonary function test procedure (PROC) 2024 025 [email or web address] Not available 10/19/2024 11:49:16 pulse oximetry (PROC) 2024 025 Not available 10/19/2024 11:49:25 Surgeries [address] Imaging CT, sinuses, w/o contrast 2024 025 [place] [facility], [address] [facility], [facility] [address], [place], [address], 10/13/2024 08:16:26 Medication Orders ipratropi um bromide 21 mcg (0.03 %) nasal spray 2024 025 [place] [id number], [address] [place], [place], [id number], 01/20/2025 16:40:52 budesonid e 32 mcg/actua tion nasal spray 2024 025 [place] [id number], [address] [place], [place], [id number], 12/03/2024 10:49:48 Patient TargetsNo targets recorded. Patient Instructions Encounter Date Encounter Id Patient Instructions Last Modified By Organization Details Last Modified Time 10/19/2024 [id number] Nursing Documentation for Allergy Testing: Ordering Provider [...] by: Tierra Shanks Not available 10/19/2024 11:53:01 01/20/2025 [id number] Use the prescrib ed ipratropium bromide nasal [...] observ ation record ed. [email or web address] [facility] [address] [address], [place], [address], 01/22/2025 08:40:30 10/20/19 25 denise metry testi ng* No observ ation record ed. [email or web address] Not Available 2024 09:26:40 Result Notes None recorded. Problems Name Problem SNOMED Code Status Onset Date Resolution Date Notes Provider Name and Address Organization Details Recorded Time Non-allergi c rhinitis 154463226933 Active 2024 PAPITO MONTE PA-C [address] [place] [address], [place], [address], [facility] - [facility] [place] 14:33:51 Chronic sinusitis 13313923 Active 2024 PAPITO MONTE PA-C [address] [place] [address], [place], [address], [facility] - [facility] [place] 14:34:03 Chronic rhinitis 61964164 Active 2024 BELLA LOVING MD [address] [place] [address], [place], [address], [facility] - [facility] [place] 16:24:56 Deviated nasal septum 983732351 Active 2024 BELLA LOVING MD [address] [place] [address], [place], [address], [facility] - [facility] [place] 16:24:58 Hypertrophy of nasal turbinates 86681152 Active 2024 BELLA LOVING MD [address] [place] [address], [place], [address], [facility] - [facility] [place] 16:40:36 Problem Notes None recorded. Procedures Surgical History Date Name Laterality Status Provider Name and Address Organization Details Recorded Time JMSNasal/Sinus Endoscopy completed BELLA QUIROS MD [address] [place] [address] [place],[facility] [address], [place], [address], [facility] - [facility] 01/20/2025 16:38:53 5 Allergy Testing-Full completed ALYSSA DOTSON [address] [facility] [place], [place], [address], [facility] - [facility] 10/19/2024 11:51:10 5 NasalEndoscopy _DP completed PAPITO MONTE PA-C [address] [facility] [place],[facility] [address], [place], [address], [facility] - [facility] 10/02/2024 14:35:19 Imaging Results None recorded. [...] Updated DateTime 10/02/2024 172.72 cm 29.2 kg/m2 22753.74 g Tahira Carpenterraven [facility] 10/02/2024 14:05:13 Date Recorded Body height Body mass index (BMI) Body weight Oxygen saturation Oxygen saturation in Arterial blood by Pulse oximetry Heart rate Systolic And Diastolic Provider Name and Address Organization Details Last Updated DateTime 172.72 cm 29.2 kg/m2 81353.7 4 g 99 % 99 % 64 /min 106/72 mm[Hg] ALYSSA DOTSON [address] [place] [address], [address] [place] [address] [facility] 09:19:52 Date Recorded Body height Body mass index (BMI) Body weight Provider Name and Address Organization Details Last Updated DateTime 12/03/2024 172.72 cm 29.2 kg/m2 11743.74 g Ava Arevalo [facility] 12/03/2024 10:17:41 Social History None recorded. Functional Status None recorded. Mental Status None recorded. Family History Nothing Reported. Medical History Condition Response Diabetes Y Arthritis Y Past Encounters Encounter ID Performer Location Encounter Start Date Encounter Closed Date Diagnosis/Indication Diagnosis SNOMED-CT Code Diagnosis ICD10 Code Diagnosis IMO Codes Diagnosis Note [id number] PAPITO MONTE PA-C [facility] [address] [address] 10/02/2024 14:00:55 10/02/2024 14:31:23 Nasal congestion 53425598 R09.81 [id number] ALYSSA DOTSON Allergy [address] [place] [address] 10/19/2024 09:02:30 10/19/2024 11:54:22 Allergic rhinitis caused by pollen 87302421 J30.1 14031556 [id number] PAPITO MONTE PA-C [facility] [address] [place] [address] 12/03/2024 10:14:02 12/03/2024 10:40:15 Non-allergic rhinitis 2457820741 01 J31.0 [id number] BELLA ROSAS MD [facility] [address] [address] 01/20/2025 15:47:19 01/20/2025 16:30:38 Chronic rhinitis 28305693 J31.0 2545 Deviated nasal septum 12 4092177 J34.2 64573 Hypertroph y of nasal turbinates 56633837 J34.3 99688184 Health Concerns Section Related Observation LastModified by Organization Detai ls LastModified Time None Recorded Concern Status LastModified by Organization Details LastModified Time None Recorded Advance Directives Directive None Recorded Payers Insurance Date Sequence Insurance Name Policy Number Policy Aleman Covered Member ID Aleman Member ID Guarantor Name 01/17/2025 1 [place] B[place]: [employer] Mac Blankbron [id number] Mac Stevenssarina Baires 01/17/2025 2 [place] [facility] Mac Nguyen [id number] Mac Stevensta Baires Notes Date Note Type [...] neuralgia and occasional headache. PAPITO MONTE PA-C [address] [place] [address] [place], [address], [facility] 10/02/2024 14:48:55 12/03/2024 text/html ROS as [...] smell is reduced. BELLA QUIROS MD [address] [facility],[address], [address], [facility] 12/03/2024 10:51:25 01/20/2025 text/html Mac Baires [...] relief, and has discontinued the use of stxi-ten-sdmzoit decongestant sprays. NOSE=90TNSS 9/10 out of 125 BELLA QUIROS MD [address] [facility],[address] [address], [place], [address], [facility] 01/20/2025 16:40:46
--- OUTSIDE RECORDS SUMMARY | 2025-03-19 19:47 | XMS_ITS | Encounter Summary ---
Author Organization [facility] Address [address] [facility] [address] [place] [address] Phone Care Team Providers Care Hourly Shift Name Role Phone Carlos Hernandez Primary Care Provider [phone] Dominic Evans MD Primary Care Provid er Encounter Details Date Type Department Care Team (Late st Contact Info) Description 02/06/2022 Procedure Pass [facility], Ct Scan - [facility] [address] [place] [address] Social History Tobacco Use Types Packs/Day Years [...] 8:19 PM EDT Orlando Salcedo RN * [place] Suicide Severity Rating Scale (Screener/Recent Self-Report) Question [...] documented as of this encounter Care Teams Hourly Shift Relationship Specialty Start Date End Date Carlos Hernandez DO [address] [place] [address] PCP - General Family Medicine 06/03/19 05/08/22 Dominic Evans MD [address] [place] [address] PCP - General Internal Medicine 05/09/22 documented as of this encounter Additional Source Comments The information contained in this document represents components of the legal health record. It is not the complete legal health record.[facility]
== END 2025-03-19 14:02 | disposition home or self-care (01) ==
LOC: HO.HUSH 13:27
PROVIDERS: PCP Internal Medicine; Visit Provider Urology
DX: E11.69 Type 2 diabetes mellitus with other specified complication (principal); N52.1 Erectile dysfunction due to diseases classified elsewhere; N40.1 Benign prostatic hyperplasia with lower urinary tract symptoms; N13.8 Other obstructive and reflux uropathy; Z13.9 Encounter for screening, unspecified
CPT/HCPCS: 99214

== ENCOUNTER → 2025-03-19 13:25 | Outpatient (BNVA) | payer MEDICARE, MEDICAID, SELFPAY | PROVIDERS: PCP Internal Medicine; Visit Provider Urology | DX: N40.1 Benign prostatic hyperplasia with lower urinary tract symptoms (principal); N13.8 Other obstructive and reflux uropathy; E11.69 Type 2 diabetes mellitus with other specified complication; N52.1 Erectile dysfunction due to diseases classified elsewhere; Z79.85 Long-term (current) use of injectable non-insulin antidiabetic drugs | CPT/HCPCS: 51798; 81003; 99212 ==

== ENCOUNTER 2025-03-22 08:59 | Outpatient (REF) | payer MEDICARE, MEDICAID, SELFPAY ==
[2025-03-22 09:59] LABS: Hematocrit 45.6 % (42.0-52.0); Hemoglobin 14.5 g/dl (14.0-18.0); Mean Corpuscular HGB Conc 31.8 g/dl (31.0-36.0); Mean Corpuscular Hemoglobin 26.8 pg (27.0-33.0); Mean Corpuscular Volume 84.1 fL (80.0-98.0); NRBC Abs Auto 0.000 X10*3/uL (0.0-0.012); NRBC Pct Auto 0.0 /100WBC (0.0-0.2); Platelet Count 246 X10*3/uL (160-400); Red Blood Count 5.42 X10*6/uL (4.60-5.80); White Blood Count 5.8 X10*3/uL (4.8-10.8)
[2025-03-22 10:08] LABS: Appearance Urine Clear; Glucose Urine UA Negative (Negative); PH 6.5 (5.0-9.0); Specific Gravity - Urine 1.025 (1.005-1.025); UMIC TRIGGER UA YES
[2025-03-22 10:27] LABS: Alanine Aminotransferase 25 U/L (0-40); Albumin Level 4.5 g/dL (3.5-5.0); Alkaline Phosphatase 67 U/L (39-117); Anion Gap 11 (12-20); Aspartate Amino Transferase 27 U/L (5-37); Blood Urea Nitrogen 13 mg/dL (9-16); Calcium 9.4 mg/dL (8.4-10.2); Carbon Dioxide 27 mmol/L (22-29); Chloride 105 mmol/L (96-108); Cholesterol 161 mg/dL (<200); Estimated Glomerular Filt Rate > 60; HDL Cholesterol 39 mg/dL (>40); Potassium 4.4 mmol/L (3.3-5.1); Sodium 139 mmol/L (135-145); Total Protein 7.5 g/dL (6.5-8.0); Triglycerides 98 mg/dL (<150)
[2025-03-22 10:45] LABS: Thyroid Stimulating Hormone 1.33 uIU/mL (0.32-4.0)
[2025-03-22 10:46] LABS: Microalbum/Creatinine Ratio Ur 3.2 ug/mg cr (<30)
[2025-03-25 00:43] LABS: TS Negative Control Passed; TS Panel A 0; TS Panel B 3; TS Positive Control Passed; TSpotTB Negative (Negative)
== END 2025-03-22 09:00 | disposition home or self-care (01) ==
LOC: HO.LAB 08:59
PROVIDERS: PCP Internal Medicine; Visit Provider Internal Medicine
DX: Z02.0 Encounter for examination for admission to educational institution (principal); E11.9 Type 2 diabetes mellitus without complications; M54.16 Radiculopathy, lumbar region
CPT/HCPCS: 36415; 80048; 80061; 80076; 81001; 82043; 82570; 84443; 85027; 86481

== ENCOUNTER 2025-05-05 10:32 | Outpatient (AMB) | payer MEDICARE, MEDICAID, SELFPAY ==
--- NOTE | 2025-05-05 11:04 | A.OFFPC_ITS ---
Vital Signs 05/05/25 11:05 Height 5 ft 8 in Weight 192 lb 8 oz BMI 29.3 BP 132/74 Blood Pressure Location Lt brachial Position Sitting Pulse 66 Pulse Source Pulse Oximeter Temp 97.1 F Temp Source Temporal Artery Scan Pulse Oximetry (%) 97 Oxygen Delivery Method Room Air Intake Visit Reasons: [facility] 04/25 fungus on toes Intake Note: Patient is here to follow-up after a visit the emergency department at [facility] on 04/25/25 Command And Control Officer Required: No Mortuary Operations Manager: Present Accompanied by: Spouse Allergies morphine (MORPHINE) Allergy (Severe, Verified 05/07/25 09:40) SHORTNESS OF BREATH, resp depression adhesive tape (ADHESIVE TAPE) Allergy (Intermediate, Verified 05/07/25 09:40) RASH flurandrenolide Allergy (Intermediate, Verified 05/07/25 09:40) Rash metformin (METFORMIN) Allergy (Intermediate, Verified 05/07/25 09:40) RASH Medication List - Last Reconciled 05/07/25 by Dominic Evans MD acetaminophen ER (Tylenol 8 Hour) 650 mg PO Q8H PRN cyclobenzaprine 10 mg PO BEDTIME diclofenac sodium 1% (Voltaren Arthritis Pain) 4 grams topical QID dulaglutide (Trulicity) 1.5 mg (0.5 mL) subcut QWEEK pantoprazole 40 mg PO DAILY sennosides (senna) 17.2 mg (2 x 8.6 mg) PO BEDTIME PRN tadalafil 5 mg PO DAILY 90 days tamsulosin 0.4 mg PO BEDTIME 90 days Tobacco use date assessed: 05/05/25 Dental Screening Dental Screen Date: 02/10/25 HPI HPI Comments History of Present Illness Details History of Present Illness - The patient is a 59-year-old male pres enting for a follow-up visit after being seen in the emergency room a week ago for a white tongue. - He was prescribed Nystatin oral suspen alivia for seven days, which he has completed, and reports his symptoms have improved. - The patient uses a steroid nasal spray and was advised in the ER to rinse his mouth after its use. Social History Results [facility] Medical History (Updated 03/19/25 @ 13:54 by Jr Caldwell MD) Vasomotor rhinitis History of benign bladder tumor Acute appendicitis Failed cervical fusion Anxiety Thoracic radiculopathy due to degenerative joint disease of spine Dyshidrotic eczema Onychomycosis Myofascial pain syndrome Postlaminectomy syndrome of lumbar region Radiculopathy, lumbar region Cervical vertebral fusion Surgical History H/O colonoscopy (~01/22/17) History of laparoscopic appendectomy (09/17/21) S/P laparoscopic appendectomy History of gastric bypass History of neck surgery History of bariatric surgery History of lumbar fusion History of lumbar laminectomy Family History Mother Liver disease Father Diabetes Sister Leukemia Social History Household Members: Spouse Housing: Apartment Alcohol intake: current Alcohol intake frequency: does not drink Patient Tobacco Use Status: Never used Tobacco e-Cigarette/Vaping Use: Never Used Second Hand Smoke Exposure: No service: No Current occupational status: disabled Cognitive needs: Yes (Cane) Hearing needs: No Vision needs: Yes (Glasses) Questionnaire Thrive Questionnaire Date Thrive assessed: 11/19/24 I am a: Patient What is your living situation today?: I have a steady place to live Within the past 12 months, did the food you bought not last and you didn't have the money to get more?: Often true Within the past 12 months, did you worry whether your food would run out before you got money to buy more?: Often true Do you have trouble paying for medicines?: I choose not to answer this question Do you have trouble getting transportation to medical appointments?: I choose not to answer this question Do you have trouble paying your heating and electricity bill?: I choose not to answer this question Do you have trouble taking care of your child, family member or friend?: No Do you have trouble with day-to-day activities such as bathing, preparing meals, shopping, managing finances, etc.?: Yes Are you currently unemployed and looking for a job?: No Are you interested in more education?: No Currently or been in a relationship where the following occur: I choose not to answer THRIVE Score: 2 DANK-7 AMB Questionnaire DANK-7 Date DANK - 7 assessed: 11/19/24 Source: Developed by Drs. Deon Subramanian, Criselda Rdz, Francisco J Farooq and colleagues, with an educational nasima from [employer]. Review of Systems Narrative Review of Systems - HEENT: Reports a white discoloration on the tongue that is now improving. Physical exam (Primary Care) Vital Signs: Last Vital Signs Temp 97.1 F 05/05/25 11:05 Pulse 66 05/05/25 11:05 BP 132/74 05/05/25 11:05 Pulse Ox 97 05/05/25 11:05 Oxygen Delivery Method Room Air 05/05/25 11:05 BMI result Body Mass Index 29.3 Tobacco/Smoking Status: Tobacco use Status Tobacco use date assessed 05/05/25 05/05/25 11:10 Patient Tobacco Use Status Never used Tobacco 05/05/25 11:10 e-Cigarette/Vaping Use Never Used 05/05/25 11:10 Thrive Assessment: Date of Thrive Assessment Date Thrive assessed 11/19/24 05/05/25 11:10 Currently or been in a relationship where the following occur: I choose not to answer Narrative Physical Exam General: Cooperative and healthy appearing Nutritional Appearance: Well nourished Orientation/consciousness: Patient oriented x3 Limitations: No limitations Head: Normal to inspection General: Appearance normal, both eyes and all related structures Neck: Normal visual inspection Chest: Normal palpation of entire chest wall Respiratory: Normal respiratory effort Neurology: Patient oriented x3 Coding Level of Care Code Est Pt Level 3 (74430) Add On Problem Visit Only Diagnoses Oral thrush B37.0 Assessment & Plan Assessment & Plan (1) Oral thrush: Code(s): B37.0 - Candidal stomatitis Plan Plan - The patient was diagnosed with oral candidiasis, likely secondary to his use of a steroid nasal spray. - He has completed a 7-day course of Nystatin oral suspension, and the condition is resolving. - He was instructed to continue using his steroid nasal spray and to rinse his mouth with water after each use to prevent recurrence. Discussion Notes I confirmed the diagnosis of oral candidiasis (thrush) with the patient, likely caused by his steroid nasal spray. I explained that the Nystatin medication he finished should resolve the infection. I advised him to continue his nasal spray but to rinse his mouth with water after each use to prevent the candidiasis from returning. Patient Instructions - You have an oral yeast infection, also known as thrush or candidiasis. - This was likely caused by your steroid nasal spray. - The Nystatin medication you took for seven days will help clear up the infection. - You can continue using your nasal spray, but make sure to rinse your mouth with water after each time you use it.
[2025-05-05 11:05] VITALS: BP 132/74; PULSE 66; TEMP 36.2; O2SAT 97; BMI 29.3
--- OUTSIDE RECORDS SUMMARY | 2025-05-05 11:48 | XMS_ITS | Data Portability ---
Author Organization [place] - [facility], Allergy Address [address] [address] Care Team Providers Care Master Plumber Name Role Phone SOFY GUARDADOK Primary Care [...] Modified Time Details Appointments Establish ed 30 2025 01:00P M BELLA LOVING MD Not available Not available Not available Lab None recorded. Referral None recorded. Procedures allergy testing, skin prick (PROC) 2024 025 [email or web address] Not available 10/19/2024 11:49:02 intraderm al allergy skin testing (PROC) 2024 025 [email or web address] Not available 10/19/2024 11:49:09 pulmonary function test procedure (PROC) 2024 025 [email or web address] Not available 10/19/2024 11:49:16 pulse oximetry (PROC) 2024 025 [email or web address] Not available 10/19/2024 11:49:25 Surgeries None recorded. Imaging CT, sinuses, w/o contrast 2024 025 [place] [facility], [address] [facility], [facility] [address], [place], [address], 10/13/2024 08:16:26 Medication Orders ipratropi um bromide 21 mcg (0.03 %) nasal spray 2024 025 [place] [id number], [address] [place], [place], [phone], 01/20/2025 16:40:52 budesonid e 32 mcg/actua tion nasal spray 2024 025 [place] [facility][id number], [address], [place], [phone], 12/03/2024 10:49:48 Patient TargetsNo targets recorded. Patient Instructions Encounter Date Encounter Id Patient Instructions Last Modified By Organization Details Last Modified Time 10/19/2024 [id number] Nursing Documentation for Allergy Testing: Ordering Provider [...] Tierra Shanks Not available 10/19/2024 11:53:01 01/20/2025 [id number] Use the prescrib ed ipratropium bromide nasal [...] observ ation record ed. [email or web address] [facility] [address] [address], [place], [address], 01/22/2025 08:40:30 10/20/19 25 denise metry testi ng* No observ ation record ed. [email or web address] Not Available 2024 09:26:40 Result Notes None recorded. Problems Name Problem SNOMED Code Status Onset Date Resolution Date Notes Provider Name and Address Organization Details Recorded Time Non-allergi c rhinitis 747924448395 Active 2024 PAPITO MONTE PA-C [address] [place] [address], [place], [address], [facility] - [facility] 14:33:51 Chronic sinusitis 86796063 Active 2024 PAPITO MONTE PA-C [address] [place] [address], [place], [address], [facility] - [facility] [place] 14:34:03 Chronic rhinitis 16057414 Active 2024 BELLA LOVING MD [address] [place] [address], [place], [address], [facility] - [facility] 16:24:56 Deviated nasal septum 796359110 Active 2024 BELLA LOVING MD [address] [place] [address], [place], [address], [facility] - [facility] 16:24:58 Hypertrophy of nasal turbinates 43208506 Active 2024 BELLA LOVING MD [address] [place] [address], [place], [address], [facility] - [facility] 16:40:36 Problem Notes None recorded. Procedures Surgical History Date Name Laterality Status Provider Name and Address Organization Details Recorded Time JMSNasal/Sinus Endoscopy completed BELLA QUIROS MD [address] [place] [address] [place],[facility] [address], [place], [address], [facility] - [facility] 01/20/2025 16:38:53 5 Allergy Testing-Full completed ALYSSA DOTSON [address] [facility] [place],[facility] [address], [place], [address], [facility] - [facility] 10/19/2024 11:51:10 5 NasalEndoscopy _DP completed PAPITO MONTE [facility]C [address] [facility] [place],[facility] [address], [place], [address], [facility] 10/02/2024 14:35:19 Imaging Results None recorded. Procedure Notes None recorded. Medical Equipment None Reported. Allergies Allergen ID Allergen Name Allergen Category Reaction Reaction Severity Criticality Documentation Date Start Date Code Code System Note Provider Name and Address Organization Details Recorded Time 360535 metformin medicatio n rash Not available low 03/25/20252021 6809 RxNorm Not Available [employer] - prod 06:32:25 150065 morphine medicatio n Not available Not available Not available 03/25/20252021 7052 RxNorm Not Available [employer] - [employer] 06:32:25 Medications Name Sig Start Date Stop Date [...] TAKE ONE TABLET BY MOUTH EVERY DAY active Not Available Not Available No t Available Trulicity 1.5 mg/0.5 mL subcutaneou s pen injector ADMINISTE R 1.5 MG UNDER THE SKIN EVERY WEEK active Not Available Not Available No t Available Vitals Date Recorded Body height Body mass index (BMI) Body weight Provider Name and Address Organization Details Last Updated DateTime 10/02/2024 172.72 cm 29.2 kg/m2 03687.74 g Tahira Easley [facility] 10/02/2024 14:05:13 Date Recorded Body height Body mass index (BMI) Body weight Oxygen saturation Heart rate Systolic And Diastolic Provider Name and Address Organization Details Last Updated DateTime 172.72 cm 29.2 kg/m2 34145.7 4 g 99 % 64 /min 106/72 mm[Hg] TIERRA SHANKS Nela [address] [place] [address], [address], [place] - [facility] 5 09:19:52 Date Recorded Body height Body mass index (BMI) Body weight Provider Name and Address Organization Details Last Updated DateTime 12/03/2024 172.72 cm 29.2 kg/m2 40068.74 g Ava Arevalo [facility] 12/03/2024 10:17:41 Social History None recorded. Functional Status None recorded. Mental Status None recorded. Family History Nothing Reported. Medical History Condition Response Diabetes Y Arthritis Y Past Encounters Encounter ID Performer Location Encounter Start Date Encounter Closed Date Diagnosis/Indication Diagnosis SNOMED-CT Code Diagnosis ICD10 Code Diagnosis IMO Codes Diagnosis Note [id number] PAPITO MONTE PA-C [facility] [address] [address] 10/02/2024 14:00:55 10/02/2024 14:31:23 Nasal congestion 44152663 R09.81 [id number] ALYSSA DOTSON Allergy [address] [facility] [address] [address] 10/19/2024 09:02:30 10/19/2024 11:54:22 Allergic rhinitis caused by pollen 66102232 J30.1 04216980 [id number] PAPITO MONTE PA-C [facility] [address] [address] 12/03/2024 10:14:02 12/03/2024 10:40:15 Non-allergic rhinitis 1537779383 01 J31.0 [id number] BELLA ROSAS MD [facility] [address] [address] 01/20/2025 15:47:19 01/20/2025 16:30:38 Chronic rhinitis 96594437 J31.0 2545 Deviated nasal septum 12 6285779 J34.2 60733 Hypertroph y of nasal turbinates 37045943 J34.3 62407181 Health Concerns Section Related Observation LastModified by Organization Detai ls LastModified Time None Recorded Concern Status LastModified by Organization Details LastModified Time None Recorded Advance Directives Directive None Recorded Payers Insurance Date Sequence Insurance Name Policy Number Policy Aleman Covered Member ID Aleman Member ID Guarantor Name 03/22/2025 1 MED[place]ARE B-[place]: [facility] Mac Baires [id number] Mac Baires 03/22/2025 2 [place] [facility] Mac Nguyen [id number] Mac Baires Notes Date Note Type Note [...] neuralgia and occasional headache. PAPITO MONTE PA-C [address] [facility],[address] [address], [place], [address], [facility] - [facility] 10/02/2024 14:48:55 12/03/2024 text/html ROS as noted [...] smell is reduced. BELLA QUIROS MD [address] [facility],[address], [address], [facility] 12/03/2024 10:51:25 01/20/2025 text/html Mac Baires is [...] relief, and has discontinued the use of vbjh-qmg-widzall decongestant sprays. NOSE=[id number] 9/10 out of 125 BELLA QUIROS MD [address] [facility],[address] [address], [place], [address], [facility] 01/20/2025 16:40:46
--- OUTSIDE RECORDS SUMMARY | 2025-05-05 11:48 | XMS_ITS | Encounter Summary ---
Author Organization [facility] Address [address] [place] [address] Phone Care Team Providers Care Medical Assistant Ob Gyn Name Role Phone Carlos Hernandez DO Primary Care Provider [phone] Dominic Evans MD Primary Care Provid er Encounter Details Date Type Department Care Team (Late st Contact Info) Description 02/06/2022 Procedure Pass [facility], Ct Scan - [facility] [address] [place] [address] Social History Tobacco Use Types Packs/Day Years [...] on file documented as of this encounter Plan of Treatment Not on file documented as of this encounter Visit Diagnoses Not on filedocumented in this encounter Additional Health Concerns Infection Onset Date Last Indicated Resolved Time CoV-Risk 09/28/2023 09/28/2023 10/09/2023 1:21 AM EDT documented as of this encounter Care Teams Medical Assistant Ob Gyn Relationship Specialty Start Date End Date Carlos Hernandez DO [address] [facility] [address] [place] [address] PCP - General Family Medicine 06/03/19 05/08/22 Dominic Evans MD [address] [place] [address] PCP - General Internal Medicine 05/09/22 documented as of this encounter Additional Source Comments The information contained in this document represents components of the legal health record. It is not the complete legal health record.[facility]
--- OUTSIDE RECORDS SUMMARY | 2025-05-05 11:48 | XMS_ITS | Clinical Summary ---
Author Organization [facility] Address [address] [place] [address] Phone Care Team Providers Care Commis Chef Name Role Phone Dominic Evans MD Primary [...] by mouth nightly at bedtime. 4 Active nystatin (MYCOSTATIN) 100,000 units/mL suspension Take 5 mL (500,000 Units total) by mouth 4 (four) times a day for 7 days. 140 mL 5 05/02/20 25 Active Problems Problem Noted Date Diagnosed Date Class 1 obesity 02/07/2022 Diabetic neuropathy 02/07/2022 Herniation of intervertebral disc of cervical re gion 02/07/2022 Lumbar radiculopathy 02/07/2022 Epididymitis 02/07/2022 Assessment & Plan (02/07/2022 4:28 AM EDT): Was originally seen at [facility] where he was diagnosed with E. [...] POC ACH S - A1c in morning Encounters Date Type Department Care Team Description 04/25/2025 7:41 AM EST - 04/25/2025 8:11 AM EST Emergency [facility] [address] [place] [address] Samuel Monsivais MD Discharge Disposition: Home or Self Care from Last 3 Months Immunizations Immunization Administration Dates Next Due Influenza [...] on file 08/31/2022 No 08/31/2022 No 08/31/2022 Food Answer Date Recorded Within the past 6 months we worried whether our food would run out before we got money to buy more. Never True 04/25/2025 Within the past 6 months the food we bought just didn't last and we didn't have enough money to get more. Never True Residential Stability Answer Date Recor ded What is your housing situation today? I have clint woods 04/25/2025 How many times have you move d in the past 12 months? Zero (I did not move) 04/25/2025 Paying for Meds Answer Date Recorded Do you have trouble paying for medicines? No 04/25/2025 Paying Utility Bills Answer Date Record ed Do you have trouble paying your heating or elect ricity bill? No 04/25/2025 Transportation Answer Date Recorded Has the lack of transportati on kept you from medical appointments or from getting medications? No 04/25/2025 Digital Access Answer Date Recorded No 04/25/2025 Yes 04/25/2025 Do you have reliable internet access at home? Ye s 04/25/2025 Do you have a device (e.g., phone, tablet, computer) with a working camera? Yes 04/25/2025 Intimate Partner Violence Answer Date R ecorded Are you denied basic needs s uch as food, clothing, or medical care? No 04/25/2025 In the past 12 months have y ou been in a relationship with a person who hurts, threatens, or tries to control you? No 04/25/2025 Are you denied basic needs s uch as food, clothing, or medical care? No 04/25/2025 In the past 12 months have y ou been in a relationship with a person who hurts, threatens, or tries to control you? No 04/25/2025 Sex and Gender Information Value Date Recorded Sex Assigned at Male 06/03/2019 10:19 AM EST Legal Sex Male 9:39 PM EDT Gender Identity Male 06/03/2019 10:19 AM EST Sexual Orientation Not on file Last Filed Vital Signs Vital Sign Reading Time Taken Comments Blood Pressure 126/81 04/25/2025 8:10 AM EST Pulse 60 04/25/2025 8:10 AM EST Temperature 36.3 C (97.3 F) 04/25/2025 8:10 AM EST Respiratory Rate 18 04/25/2025 8:10 AM EST Oxygen Saturation 99% 04/25/2025 8:10 AM EST Inhaled Oxygen Concentration - - Weight 87.1 kg (192 lb) 04/25/2025 6:52 AM EST Height 172.7 cm (5' 8 ) 04/25/2025 6:52 AM EST Body Mass Index 29.19 04/25/2025 6:52 AM EST Plan of Treatment Health Maintenance Due Date [...] (#1) 2024 2, 02/14/2016 COVID-19 VACCINE (2 - 2024-2 6 season) 2025 08/14/2020 SMOKING STATUS [...] Procedure Name Priority Date/Time Associated Diagnosis Comments GROUP A STREPTOCOCCUS, CULTURE STAT 04/25/2025 6:56 AM EST RAPID STREP SCREEN W/ REFLEX STAT 04/25/2025 6:56 AM EST HEMOGLOBIN A1C STAT 02/07/2022 5:22 AM EDT from Last 3 Months or Most Recently Relevant to Health Maintenance Results * Group A Streptococcus (GAS), Rapid Screen with Reflex to Culture (04/25/2025 6:56 AM EST) Rapid GP A Strep Ag Negative Negative 04/25/2025 7:18 AM EST [facility] Comment:A culture for Group A streptococci has been reflexed. The results will follow. Swab (Throat) Non-Blood Collection / Unknown 04/25/2025 6:56 AM EST 04/25/2025 6:58 AM EST us Samuel Monsivais MD LAB GENERAL ORDERABLES Final Res ult Performing Organization Address City/Va Hospital/ZIP Co de Phone Number [address] [address] * Group A Streptococcus, Culture (04/25/2025 6:56 AM EST) Pathologist [facility] Group A Streptococcus Culture/Test No Group A Beta Hemolytic Strep isolated RAPID SUSCEPTIBILITY TESTING (DAVID) 04/27/2025 8:28 AM EST [facility] Swab (Throat) Non-Blood Collection / Unknown 04/25/2025 6:56 AM EST 04/25/2025 6:58 AM EST us Samuel Monsivais MD LAB MICROBIOLOGY CULTURE ORDERAB LES Final Result Performing Organization Address City/[facility] Hospital/ZIP Co de Phone Number [address] [address] * (ABNORMAL) Hemoglobin A1c (02/07/2022 5:22 AM EDT) HEMOGLOBIN A1C 6.8(H) 4.3 - 5.8 % [facility] Blood 02/07/2022 5:22 AM EDT 02/07/2022 5:56 AM EDT us Jayce Soria MAINTENANCE ASSISTANT LAB BLOOD BKR ORDERABLES Final R esult [facility] [address] [place] [address] from Last 3 Months or Most Recently Relevant to Health Maintenance Insurance [employer] PART A & B [employer] MED[employer] PART A & [place] [facility] & B Advance Directives For more information, please contact: [phone] (9AM - 5PM [place], Saturday-Saturday) * Full Code Except DNI (Latest Code Status on File) Date Activated Date Inactivated Comments 02/07/2022 4:43 AM Question Answer Comments Code Status Confirmed With: Patient Care Teams Commis Chef Relationship Specialty Start Date End Date Dominic Evans MD [address] [place] [address] PCP - General Internal Medicine 05/09/22 Additional Source Comments The information contained in this document represents components of the legal health record. It is not the complete legal health record.[facility]
== END 2025-05-05 12:31 | disposition home or self-care (01) ==
LOC: HO.HMCH 10:32
PROVIDERS: PCP Internal Medicine; Visit Provider Internal Medicine
DX: B37.0 Candidal stomatitis (principal)

== ENCOUNTER → 2025-05-05 10:32 | Outpatient (BNVA) | payer MEDICARE, MEDICAID, SELFPAY | PROVIDERS: PCP Internal Medicine; Visit Provider Internal Medicine | DX: B37.0 Candidal stomatitis (principal) | CPT/HCPCS: 99212 ==